=== PATIENT | male | born 1990 | race Caucasian/White ===

== ENCOUNTER 2018-08-13 13:12 | Emergency (ER) | payer MEDICAID, SELFPAY ==
[2018-08-13 13:29] VITALS: BP 126/69; PULSE 91; RESP 12; TEMP 37; O2SAT 98
--- NOTE | 2018-08-13 13:37 | W.ED.GENAD ---
Discharge Plan Disposition Patient Disposition: HOME Condition: Good Discharge Details Chief Complaint: DentalOral Clinical Impression: Dental infection Primary Care Provider: NONE,NONE ED Provider: Zachary Banegas Home Meds and New Rx's Prescriptions: New penicillin V potassium 500 mg tablet 500 mg PO QID 10 Days Qty: 40 RF: 0 Continue fluoxetine [Prozac] 20 MG capsule 20 mg PO DAILY RF: 0 dextroamphetamine-amphetamine [Adderall] 30 MG tablet 30 mg PO DAILY RF: 0 gabapentin 100 mg Capsule 100 mg PO BID RF: 0 ibuprofen 600 MG tablet 600 mg PO Q6H PRN (Reason: Pain) Qty: 20 RF: 0 Discharge Instructions Additional Instructions: you can take 1000mg tylenol and 600mg ibuprofen every 6 hours for pain as needed follow up with your dentist within 2 weeks if you have difficulty breathing, high fevers or inability to swallow liquids return to the emergency department Discharge Data Discharge Physician: Zachary Banegas Medical Decision Making 28 yo male comes in with few days of left upper mid molar pain of a tooth that has chronic severe erosion and numeruos caries elsewhere. no fevers, difficulty breathing or swalliwng and has full rom of the mouth and midline uvula and no pain over hyoid and no restricted neck movements and no drainable abscess on exam. I am going to start abx for dental infection and he is giong to f/u with dentist, return precautions given. N ofindings at this time to suggest rpa, [employer], ludwigs, epiglotitis at this time Differential Diagnosis dental abscess, caries, pulpitis HPI General Mode of arrival: ambulatory. Date/Time Provider Initiated Documentation: 08/13/18 13:34. Limitations to Documentation: no limitations. Information obtained by: patient. History of Present Illness 28 year old M presents to the emergency department with the chief complaint of left upper mid molar tooth pain, described as moderate, with intensity rated at 5. Quality is described as aching, and is localized to the mouth. Patient reports no radiation. Patient started experiencing this day(s) (3) and it has been constant. No relieving factors improve symptom(s), No exacerbating factors reported . Patient notes no other symptoms.. Patient did receive the following treatments prior to arrival, none Related Data Home Medications Medication Instructions Recorded Confirmed fluoxetine [Prozac] 20 mg PO DAILY tab-cap NS 03/06/16 08/13/18 dextroamphetamine-amphetamine 30 mg PO DAILY tab-cap 11/05/16 08/13/18 [Adderall] ibuprofen 600 mg PO Q6H PRN #20 tab 04/01/18 08/13/18 gabapentin 100 mg PO BID 08/13/18 08/13/18 penicillin V potassium 500 mg PO QID 10 Days #40 tab 08/13/18 Previous Rx's Medication Instructions Recorded ibuprofen 600 mg PO Q6H PRN #20 tab 04/01/18 penicillin V potassium 500 mg PO QID 10 Days #40 tab 08/13/18 Allergies Allergy/AdvReac Type Severity Reaction Status Date / Time codeine Allergy Unverified 01/24/18 14:03 General Stated Complaint: DentalOral BIANKA: 4 Review of Systems Review of Systems All systems reviewed & are unremarkable except as noted in HPI and below Constitutional Denies chills, Denies fever(s) and Denies weakness ENT Denies change in voice Cardiovascular Denies chest pain and Denies dyspnea Respiratory Denies dyspnea Gastrointestinal Denies abdominal pain, Denies nausea and Denies vomiting Genitourinary Denies dysuria Musculoskeletal Denies joint swelling Integumentary/Breasts Denies rash Neurologic Denies weakness PFSH Medical History ADHD (attention deficit hyperactivity disorder) Depression bilateral congenital hernias Social History Smoking/Tobacco Use Status: Current every day Surgical History Repair of inguinal hernia Exam Const General: no acute distress Orientation: alert HENNH Head: normal to inspection Ears: external ears normal General nose exam: external nose normal Mouth: moist mucous membranes Eyes General: appearance normal, both eyes and all related structures Neck Neck: normal visual inspection Resp Effort & Inspection: normal respiratory effort and able to speak in complete sentences Cardio Rate: regular rate Skin General skin exam: no rashes or lesions noted Neuro General: alert and oriented x3 Extrem General: normal to inspection Psych Mental Status: mental status grossly normal Course Vital Signs Temperature 37.0 C 08/13/18 13:29 Pulse 91 H 08/13/18 13:29 Respiratory Rate 12 08/13/18 13:29 Blood Pressure 126/69 08/13/18 13:29 Pulse Oximetry 98 08/13/18 13:29 Temperature 37.0 C 08/13/18 13:29 Temperature Source Temporal Artery Scan 08/13/18 13:29 Pulse 91 H 08/13/18 13:29 Respiratory Rate 12 08/13/18 13:29 Respiratory Effort Non-Labored 08/13/18 13:31 Blood Pressure 126/69 08/13/18 13:29 Blood Pressure Position Sitting 08/13/18 13:29 Pulse Oximetry 98 08/13/18 13:29 Oxygen Delivery Method Room Air 08/13/18 13:29 Oxygen Flow Rate 0 08/13/18 13:29 Pain Level 3 08/13/18 13:33
--- NOTE | 2018-08-13 13:41 | ED.GENADUL_ITS ---
Discharge Plan Disposition Patient Disposition: HOME Condition: Good Discharge Details Chief Complaint: DentalOral Clinical Impression: Dental infection Primary Care Provider: NONE,NONE ED Provider: Zachary Banegas Home Meds and New Rx's Prescriptions: New penicillin V potassium 500 mg tablet 500 mg PO QID 10 Days Qty: 40 RF: 0 Continue fluoxetine [Prozac] 20 MG capsule 20 mg PO DAILY RF: 0 dextroamphetamine-amphetamine [Adderall] 30 MG tablet 30 mg PO DAILY RF: 0 gabapentin 100 mg Capsule 100 mg PO BID RF: 0 ibuprofen 600 MG tablet 600 mg PO Q6H PRN (Reason: Pain) Qty: 20 RF: 0 Discharge Instructions Additional Instructions: you can take 1000mg tylenol and 600mg ibuprofen every 6 hours for pain as needed follow up with your dentist within 2 weeks if you have difficulty breathing, high fevers or inability to swallow liquids return to the emergency department Discharge Data Discharge Physician: Zachary Banegas Medical Decision Making 28 yo male comes in with few days of left upper mid molar pain of a tooth that has chronic severe erosion and numeruos caries elsewhere. no fevers, difficulty breathing or swalliwng and has full rom of the mouth and midline uvula and no pain over hyoid and no restricted neck movements and no drainable abscess on exam. I am going to start abx for dental infection and he is giong to f/u with dentist, return precautions given. 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 Date/Time Provider Initiated Documentation: 08/13/18 13:34 . Limitations to Documentation: no limitations . Information obtained by: patient . History of Present Illness 28 year old M presents to the emergency department with the chief complaint of left upper mid molar tooth pain, described as moderate, with intensity rated at 5. Quality is described as aching, and is localized to the mouth. Patient reports no radiation. Patient started experiencing this day(s) (3) and it has been constant. No relieving factors improve symptom(s), No exacerbating factors reported . Patient notes no other symptoms.. Patient did receive the following treatments prior to arrival, none Related Data Home Medications Medication Instructions Recorded Confirmed fluoxetine [Prozac] 20 mg PO DAILY tab-cap NS 03/06/16 08/13/18 dextroamphetamine-amphetamine 30 mg PO DAILY tab-cap 11/05/16 08/13/18 [Adderall] ibuprofen 600 mg PO Q6H PRN #20 tab 04/01/18 08/13/18 gabapentin 100 mg PO BID 08/13/18 08/13/18 penicillin V potassium 500 mg PO QID 10 Days #40 tab 08/13/18 Previous Rx's Medication Instructions Recorded ibuprofen 600 mg PO Q6H PRN #20 tab 04/01/18 penicillin V potassium 500 mg PO QID 10 Days #40 tab 08/13/18 Allergies Allergy/AdvReac Type Severity Reaction Status Date / Time codeine Allergy Unverified 01/24/18 14:03 General Stated Complaint: DentalOral BIANKA: 4 Review of Systems Review of Systems All systems reviewed & are unremarkable except as noted in HPI and below Constitutional Denies chills, Denies fever(s) and Denies weakness ENT Denies change in voice Cardiovascular Denies chest pain and Denies dyspnea Respiratory Denies dyspnea Gastrointestinal Denies abdominal pain, Denies nausea and Denies vomiting Genitourinary Denies dysuria Musculoskeletal Denies joint swelling Integumentary/Breasts Denies rash Neurologic Denies weakness PFSH Medical History ADHD (attention deficit hyperactivity disorder) Depression bilateral congenital hernias Social History Smoking/Tobacco Use Status: Current every day Surgical History Repair of inguinal hernia Exam Const General: no acute distress Orientation: alert HENFL Head: normal to inspection Ears: external ears normal General nose exam: external nose normal Mouth: moist mucous membranes Eyes General: appearance normal, both eyes and all related structures Neck Neck: normal visual inspection Resp Effort & Inspection: normal respiratory effort and able to speak in complete sentences Cardio Rate: regular rate Skin General skin exam: no rashes or lesions noted Neuro General: alert and oriented x3 Extrem General: normal to inspection Psych Mental Status: mental status grossly normal Course Vital Signs Temperature 37.0 C 08/13/18 13:29 Pulse 91 H 08/13/18 13:29 Respiratory Rate 12 08/13/18 13:29 Blood Pressure 126/69 08/13/18 13:29 Pulse Oximetry 98 08/13/18 13:29 Temperature 37.0 C 08/13/18 13:29 Temperature Source Temporal Artery Scan 08/13/18 13:29 Pulse 91 H 08/13/18 13:29 Respiratory Rate 12 08/13/18 13:29 Respiratory Effort Non-Labored 08/13/18 13:31 Blood Pressure 126/69 08/13/18 13:29 Blood Pressure Position Sitting 08/13/18 13:29 Pulse Oximetry 98 08/13/18 13:29 Oxygen Delivery Method Room Air 08/13/18 13:29 Oxygen Flow Rate 0 08/13/18 13:29 Pain Level 3 08/13/18 13:33
== END 2018-08-13 13:45 | disposition home or self-care (01) ==
PROVIDERS: Emergency Provider Emergency Medicine
DX: K04.7 Periapical abscess without sinus (principal)
CPT/HCPCS: 99283

== ENCOUNTER 2020-01-18 19:05 | Emergency (ER) | payer MEDICAID, SELFPAY ==
[2020-01-18 19:09] VITALS: BP 139/98; PULSE 76; RESP 14; TEMP 36.9; O2SAT 98
--- NOTE | 2020-01-18 19:12 | W.ED.GENAD ---
Discharge Plan Disposition Patient Disposition: HOME Condition: Good Discharge Details Chief Complaint: DentalOral Clinical Impression: Dental infection Primary Care Provider: None,None ED Provider: Renan Ch Home Meds and New Rx's Prescriptions: New clindamycin HCl 150 mg capsule 450 mg PO TID 10 Days Qty: 90 RF: 0 No Action ibuprofen 600 MG tablet 600 mg PO Q6H PRN (Reason: Pain) Qty: 20 RF: 0 Discharge Instructions Instructions: Dental Abscess (ED) Additional Instructions: You have a dental infection. Please take the clindamycin as directed. Please take 800 mg of ibuprofen every 6 hours and 1000 mg of Tylenol every 6 hours. Please follow-up closely with your dentist for removal of your teeth. If you notice any worsening of your symptoms, or any new symptoms such as vomiting, diarrhea, fever, chills, shortness of breath, chest pain, numbness, weakness, or fainting , please return immediately to the emergency department for reevaluation. Please follow up with your primary care provider as soon as possible for reassessment and reevaluation. As always, it was a pleasure participating in your medical care today. Medical Decision Making 29-year-old male with a past medical history of dental problems who presents with dental problems. Patient states that over the last few days he has had mild swelling and pain in his upper teeth, he was started on amoxicillin an outpatient facility, is taking this for 24 hours and has had slight swelling and increase in pain. Exam demonstrates mild swelling around tooth 9, small area of fluctuance. Immunizations are up-to-date. With the lack of improvement with the amoxicillin I do feel that further antibiotic treatment is indicated with clindamycin. We will give the first dose here, perform small I&D, reassess. I&D was applied, a small amount of pus and blood was removed. Patient tolerated procedure well. Recommend NSAIDs, and antibiotic. Given dental sheet. I have extensively reviewed the treatment plan and discharge instructions with the patient. I have addressed all patient concerns at this time. The patient was made aware of what symptoms to monitor for that would warrant a return to the emergency department. Discussed the plan with the patient, they demonstrate verbal understanding and agreement with our assessment and plan at this time. HPI General Date/Time Provider Initiated Documentation: 01/18/20 19:05. HPI Narrative: 29-year-old male with a past medical history of multiple previous dental infections. He presents today for swelling in his mouth. He has been on amoxicillin for the last 24 hours that he was prescribed by Dr. Hennessy at an outlying facility. He states that since then the swelling has worsened. He does have a dentist that he sees. He has not yet seen them. He denies any fever, chills, headache, neck pain, chest pain cough or shortness of breath. Pain is slightly improved with Tylenol Motrin. No other complaints at this time. No other modifying factors. Related Data Home Medications Medication Instructions Recorded Confirmed ibuprofen 600 mg PO Q6H PRN #20 tab 04/01/18 01/18/20 clindamycin HCl 450 mg PO TID 10 Days #90 cap 01/18/20 Previous Rx's Medication Instructions Recorded ibuprofen 600 mg PO Q6H PRN #20 tab 04/01/18 clindamycin HCl 450 mg PO TID 10 Days #90 cap 01/18/20 Allergies Allergy/AdvReac Type Severity Reaction Status Date / Time codeine Allergy Unverified 01/24/18 14:03 General Stated Complaint: DentalOral BIANKA: 4 Review of Systems All systems reviewed & are unremarkable except as noted in HPI and below PFSH Surgical History (Updated 08/17/18 @ 14:37 by Patient [employer]) Repair of inguinal hernia Bilateral Social History Smoking/Tobacco Use Status: Current every day Drug use: Daily Substance use type: marijuana Do you feel safe in your relationship?: Yes Exam Narrative Exam Narrative: 1.Const: Well-nourished, Well-developed, appearing stated age 2.Eyes: PERRL, no conjunctival injection, and symmetrical lids. 3.ENT: Atraumatic external nose and ears. Moist MM. Neck: Symmetric, trachea midline, No thyromegaly. Notably poor dentition throughout, particularly in the upper front teeth. There is a small area of swelling over the ninth tooth on the upper left. No evidence of discharge. Patient demonstrates good movement of cervical neck. There is no nuchal rigidity, no nuchal tenderness. Patient is able to flex the neck without any difficulty or significant pain. Negative Kernig's and Brudzinski sign. 4.CVS: +S1/S2, No murmurs or gallops. Peripheral pulses 2+ and equal in all extremities. Brisk capillary refill in all extremities. 5.RESP: Unlabored respiratory effort. Clear to auscultation bilaterally. No wheezes rales or rhonchi 6.GI: Soft, Nontender/Nondistended, No hepatosplenomegaly. No guarding or rebound. 7.MSK: Normocephalic/Atraumatic, Extremities w/o deformity or ttp No cyanosis or clubbing, Normal movement of all extremities 8.Skin: Warm, Dry. No rashes or lesions. 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 Sensation grossly intact, no focal neurologic deficits. 10.Psych: (AAO) x3. Appropriate mood and affect Course Vital Signs Vital signs: Vital Signs Temperature 36.9 C 01/18/20 19:09 Pulse 76 01/18/20 19:09 Respiratory Rate 14 01/18/20 19:09 Blood Pressure 139/98 H 01/18/20 19:09 Pulse Oximetry 98 01/18/20 19:09 Temperature 36.9 C 01/18/20 19:09 Temperature Source Skin 01/18/20 19:09 Pulse 76 01/18/20 19:09 Respiratory Rate 14 01/18/20 19:09 Respiratory Effort 01/18/20 19:09 Blood Pressure 139/98 H 01/18/20 19:09 Pulse Oximetry 98 01/18/20 19:09 Pain Level 6 01/18/20 19:09
[2020-01-18] MEDS: Clindamycin 150 MG CAP 450 MG PO (19:26)
[2020-01-18] MEDS: Ondansetron O.D.T. 4 MG TABEF PO (19:30)
[2020-01-18 19:40] VITALS: BP 139/98; PULSE 76; RESP 14; O2SAT 98
== END 2020-01-18 19:41 | disposition home or self-care (01) ==
LOC: ER 19:17
PROVIDERS: Emergency Provider Student in an Organized Health Care Education/Training Program
DX: K04.7 Periapical abscess without sinus (principal)
CPT/HCPCS: 99283

== ENCOUNTER 2020-01-24 19:00 | Emergency (ER) | payer MEDICAID, SELFPAY ==
[2020-01-24 19:06] VITALS: BP 126/78; PULSE 91; RESP 16; TEMP 37.1; O2SAT 96
--- NOTE | 2020-01-24 19:44 | ED.GENADUL_ITS ---
Discharge Plan Disposition Patient Disposition: HOME Condition: Stable Discharge Details Chief Complaint: DentalOral Clinical Impression: Dental infection, Lymphadenitis, acute Primary Care Provider: None,None ED Provider: Ginette Carter Home Meds and New Rx's Prescriptions: No Action ibuprofen 600 MG tablet 600 mg PO Q6H PRN (Reason: Pain) Qty: 20 RF: 0 clindamycin HCl 150 mg capsule 450 mg PO TID 10 Days Qty: 90 RF: 0 Discharge Instructions Instructions: Dental Abscess (ED) Additional Instructions: Continue antibiotics as discussed. Be sure to sit upright for 10 minutes after taking antibiotics. Use Tylenol for soreness if needed. Rest activities as tolerated. Monitor your temperature twice daily as discussed. For any increase in temperature greater than 100.4, increasing facial swelling, development of ill feeling or persistent vomiting return to the emergency room for further evaluation as discussed. Please avoid irritating the area of the swollen glands, this should resolve on its own in the next few weeks, if not resolving have reevaluation with your PCP or return to the emergency room for redness surrounding the area, pain at the area or worsening as discussed. Please follow-up with a dentist locally for definitive treatment of your dental caries. Return for any worsening or concerns if needed sooner Discharge Data Discharge Date/Time-TO BE ENTERED AT DEPARTURE: 01/24/20 19:49 Medical Decision Making Is a 29-year-old patient presenting to the emergency room for complaints of an episode of vomiting after taking his antibiotic he subsequently checked his temperature with a thermometer and noted 99, also reports an area of lump of concern on his neck which he does report is improved compared to yesterday. Patient was concerned as he is being treated for dental abscess with clindamycin. Antibiotic prescribed 5 days ago. Patient reports his dental abscess is significantly improved compared to 5 days ago. Patient reports pain, swelling and pressure have all significantly improved. Has been eating and drinking without difficulty. Patient indicates an area under the left jawline clinically consistent with a prominent lymph node. Area has no overlying cellulitic findings. Patient reports this area is smaller in size compared to yesterday, I suspect reactive lymph node. Patient indicates tooth 9 as site of dental abscess, no fluctuation or sign of abscess at this time. A small wound at the gumline patient indicates was area of drainage. Patient has no subsequent swelling or facial involvement at this time. Patient has no trismus. Patient does have widespread dental caries. Patient denies any upper res piratory symptoms or any other concern of infection. Patient reports in general he feels continuing improvement. However he was concerned with a single episode of vomiting this morning and then the temperature of 99 which he was concerned seemed elevated. Patient however does attribute his vomiting after immediately taking clindamycin and laying flat, he after reviewed pill bottle which stated to sit upright for 10 minutes after taking his antibiotic. Patient reports he has been able to hold down to subsequent doses without difficulty. Denies any sign of rash or allergic reaction. On exam patient has a clinically improving dental abscess. Patient vital signs reviewed and are normal. Patient appears well in general. Patient reports he googled and was concerned with the possibility of sepsis however has no septic criteria at this time and in general is improving. We discussed blood work however patient is very hesitant to have any labs drawn today. Patient rather would prefer checking temperatures daily and observing closely for any clinical worsening. If he has any worsening will be reevaluated in the emergency room. Patient denies any other sites of infection or concerns. Has no upper respiratory symptoms or cough. Is no abdominal pain or changes in his bowels. Denies any rashes. Patient feels comfortable with observation his plan of care and continuing antibiotics at home. Did encourage patient to follow-up with dentist as an outpatient for his underlying dental caries. Patient agrees with plan of care. Precautions discussed prior to discharge, patient again agrees with plan of care and discharge. The patient was stable and requested discharge. Prior to discharge, my usual and customary return precautions were reviewed with the patient - this included follow-up instructions and reasons to return to the Emergency Department if conditions worsens, does not improve as expected, or other new concerns arise. HPI General Date/Time Provider Initiated Documentation: 01/24/20 19:06 . HPI Narrative: This is a 29-year-old patient presenting to the emergency room for concern of an episode of vomiting immediately after taking his antibiotic and laying flat. Patient reports this occurred approximately 4:00 this morning. Patient reports he subsequently checked his temperature which was noted to be 99. Patient is also concerned as he is an area on his neck which is slightly swollen. Patient does report this area of swelling on his neck is less swollen compared to yesterday. Patient recently evaluated 5 or 6 days ago for dental abscess. Abscess was drained in the emergency room and he began clindamycin at that time. Patient reports his dental swelling, pressure and pain have all significantly improved. Patient denies any malaise at this time. Patient reports he has subsequently taken his antibiotic without difficulty or vomiting. Patient suspects he vomited because he laid flat immediately after taking antibiotics, after reviewing the pill bottle the direction specifically state to sit upright for 10 minutes after taking antibiotic which he was unaware of, and did lay down immediately after taking his dose, then subsequently vomited. Patient reports no cough, difficulty breathing with shortness of breath or wheezing. No persistent malaise at this time. Has been eating and drinking without difficulty. In general feels continued improvement. Related Data Home Medications Medication Instructions Recorded Confirmed ibuprofen 600 mg PO Q6H PRN #20 tab 04/01/18 01/24/20 clindamycin HCl 450 mg PO TID 10 Days #90 cap 01/18/20 01/24/20 Previous Rx's Medication Instructions Recorded ibuprofen 600 mg PO Q6H PRN #20 tab 04/01/18 clindamycin HCl 450 mg PO TID 10 Days #90 cap 01/18/20 Allergies Allergy/AdvReac Type Severity Reaction Status Date / Time codeine Allergy Unverified 01/24/20 19:09 General Stated Complaint: DentalOral BIANKA: 4 Review of Systems All systems reviewed & are unremarkable except as noted in HPI and below Constitutional Constitutional: Denies chills, Denies fatigue, Denies fever(s) (99 measured at home), Denies headache(s) and Denies malaise ENT Ears, Nose, Mouth, and Throat: Denies dental pain, Denies headache(s), Denies nasal congestion, Denies nasal discharge, Reports neck mass, Denies neck pain, Denies sore throat and Denies throat swelling Respiratory Respiratory: Denies cough and Denies wheezing Gastrointestinal Gastrointestinal: Denies abdominal pain, Denies diarrhea, Denies nausea and Reports vomiting (x 1, since resolved) Musculoskeletal Musculoskeletal: Denies neck pain Neurologic Neurologic: Denies headache(s) Endocrine Endocrine: Denies fatigue Allergic/Immunologic Allergic/Immunologic: Denies throat swelling and Denies wheezing [facility] Medical History ADHD (attention deficit hyperactivity disorder) bilateral congenital hernias Depression Surgical History (Updated 08/17/18 @ 14:37 by [facility]) Repair of inguinal hernia Bilateral Social History Smoking/Tobacco Use Status: Current every day Tobacco Type: cigarettes Drug use: Daily Substance use type: marijuana Do you feel safe in your relationship?: Yes Exam Narrative Exam Narrative: CONST: Healthy appearing patient, in no acute distress. Well hydrated. Alert and oriented. HENMT: Head nomocephalic, normal to inspection. Atraumatic. Hearing grossly normal. TMs appear normal bilaterally. Oropharynx appears normal. Patient has a healing wound at the gumline, anterior to tooth #9. Patient has no focal fluctuation at the gumline or facial swelling associated with previously experienced dental abscess. Mild gingival erythema and widespread dental caries. EYES: General normal appearance. Alignment normal. Eyelids normal. Conjunctiva normal. NECK: Normal visual inspection. FROM. Trachea midline. No Midline tenderness. Isolated prominent submandibular lymph node noted on the left, no overlying cellulitis, nontender, no fluctuance. Well-circumscribed. CHEST: Normal insepection of the chest. RESP: Normal respiratory effort. Speaking full sentences. No cough. No audible wheezing. No retractions. CARDIO: No JVD. No murmur. Regular rate and rhythm MUSCULOSKELETAL: Normal Gait. FROM of all extremities. SKIN: Normal. Dry. No rashes. NEURO: Alert and awake. Speech clear. PSYCH: Normal affect. Cooperative. Course Vital Signs Vital signs: Vital Signs Temperature 37.1 C 01/24/20 19:06 Pulse 91 H 01/24/20 19:06 Respiratory Rate 16 01/24/20 19:06 Blood Pressure 126/78 01/24/20 19:06 Pulse Oximetry 96 01/24/20 19:06 Temperature 37.1 C 01/24/20 19:06 Temperature Source Temporal Artery Scan 01/24/20 19:06 Pulse 91 H 01/24/20 19:06 Respiratory Rate 16 01/24/20 19:06 Respiratory Effort 01/24/20 19:09 Blood Pressure 126/78 01/24/20 19:06 Blood Pressure Position Sitting 01/24/20 19:06 Pulse Oximetry 96 01/24/20 19:06 Oxygen Delivery Method Room Air 01/24/20 19:06 Oxygen Flow Rate 0 01/24/20 19:06
== END 2020-01-24 19:49 | disposition home or self-care (01) ==
PROVIDERS: Emergency Provider Physician Assistant
DX: L04.0 Acute lymphadenitis of face, head and neck (principal); K04.7 Periapical abscess without sinus; R11.2 Nausea with vomiting, unspecified; T36.8X5A Adverse effect of other systemic antibiotics, initial encounter; F17.210 Nicotine dependence, cigarettes, uncomplicated
CPT/HCPCS: 99282; 99283

== ENCOUNTER 2020-07-09 15:44 | Outpatient (REF) | payer MEDICAID, SELFPAY ==
[2020-07-09 19:01] LABS: Anion Gap 7.4 mmol/L (3-11); BUN 11 mg/dL (7-18); CO2 28.6 mmol/L (21.0-32.0); CREATININE 1.08 mg/dL (0.70-1.30); Calcium 9.1 mg/dL (8.5-10.1); Calculated LDL 113 mg/dL (<100); Chloride 101 mmol/L (98-107); Cholesterol 170 mg/dL (<200); Glucose 91 mg/dL (74-106); HDL Cholesterol 45 mg/dL (40-60); Potassium 3.4 mmol/L (3.5-5.1); Sodium 137 mmol/L (136-145); Triglyceride 61 mg/dL (<150)
== END 2020-07-09 16:04 ==
LOC: NCHCN 15:44
PROVIDERS: Visit Provider Physician Assistant
DX: Z13.220 Encounter for screening for lipoid disorders (principal); Z13.228 Encounter for screening for other metabolic disorders
CPT/HCPCS: 80048; 80061

== ENCOUNTER 2020-08-06 15:37 | Outpatient (REF) | payer MEDICAID, SELFPAY ==
[2020-08-08 12:34] LABS: Patient Race White; SARS-CoV-2 RNA Undetected (Undetected); SARS-CoV-2 Specimen Source Nasal
== END 2020-08-06 15:57 ==
LOC: NCHCN 15:37
PROVIDERS: PCP Nurse Practitioner Family; Visit Provider Nurse Practitioner Family
DX: R05 Cough (principal)
CPT/HCPCS: U0003

== ENCOUNTER 2020-08-08 20:16 | Emergency (ER) | payer MEDICAID, SELFPAY ==
--- NOTE | 2020-08-08 20:15 | RT.EKG_ITS ---
APPROVED REPORT Exam: Resting ECG Patient Location: E HR:76 bpm ECG Measurements Heart Rate 76 AXIS NV 175 P 77 QRSd 91 QRS 88 QT 387 T 50 QTc 437 Conclusion EKG 20: 42 Rate 76, sinus rhythm, intervals normal, no significant ST elevation or depression, no evidence of ST GERALDO, small minimal Q waves in lead III and aVF. No inverted T waves, no evidence of broad terminal S waves.
[2020-08-08 20:21] VITALS: BP 138/76; PULSE 79; RESP 20; TEMP 36.7; O2SAT 97
--- NOTE | 2020-08-08 20:49 | ED.GENADUL_ITS ---
Discharge Plan Disposition Patient Disposition: HOME Condition: Good Discharge Details Clinical Impression: Bronchitis, Cough with hemoptysis Primary Care Provider: Rudy Laura ED Provider: Renan Ch Home Meds and New Rx's Prescriptions: New budesonide-formoterol [Symbicort] 160-4.5 mcg/actuation HFA aerosol inhaler 2 puff inhalation BID Qty: 10.2 RF: 0 loratadine 10 mg capsule 10 mg PO DAILY Qty: 20 RF: 0 doxycycline hyclate 100 mg tablet 100 mg PO BID Qty: 20 RF: 0 Continued ibuprofen 600 MG tablet 600 mg PO Q6H PRN (Reason: Pain) Qty: 20 RF: 0 Discharge Instructions Instructions: Acute Bronchitis (ED), Hemoptysis (ED) Additional Instructions: At this time the CT scan shows no evidence of cancer, large blood clot or other abnormality. I suspect that you have bronchitis from your cough which is led to eventual mild bleeding. Please stop taking the albuterol inhaler and take this new inhaler that has a steroid in it. Take 2 puffs twice daily using your spacer. Please also take the antibiotic doxycycline, 1 pill twice a day. Make sure to take it with food as it can cause an upset stomach. Additionally do not take with any dairy products as this will decrease its effectiveness. Also please take the loratadine 1 pill daily as directed to help with the congestion in your ears. If you notice any worsening of your symptoms, or any new symptoms such as vomiting, diarrhea, fever, chills, shortness of breath, chest pain, numbness, weakness, or fainting , please return immediately to the emergency department for reevaluation. Additionally if your symptoms do not improve after this treatment you may need further evaluation by a physical medicine specialist. Please follow up with your primary care provider as soon as possible for reassessment and reevaluation. As always, it was a pleasure participating in your medical care today. Referrals: Rudy Laura [Primary Care Provider] - Medical Decision Making 30-year-old male with no significant past medical history except for tobacco abuse presents today for hemoptysis. Patient states that last 12 days he has had a mild cough, he was started on Vicks VapoRub, albuterol inhaler a few days ago and has noticed some mild improvement however today he noticed that he was coughing up a fair amount of blood which is atypical. He describes it as nickel to quarter size. This is the first time this is happened. He still does admit to some mild fullness in his chest, he denies any tearing or ripping sensation. He denies any recent long trips or history of blood clots. He denie s any history of cardiac disease. He states that his symptoms have otherwise been stabilizing, but this was a change. He denies any other complaints at this time. No other modifying factors. Physical exam is relatively unremarkable, vital signs stable. Posterior oropharynx is negative for any evidence of blood. Signs and symptoms certainly are concerning, his COVID test did just come back negative. Differential especially with his tobacco history includes bronchitis with subsequent hemoptysis, but also mass or PE. We will get a CTA, laboratory work-up, gently rehydrate monitor closely and reassess. Screening EKG negative for any evidence of STEMI. Also of note he does demonstrate mild evidence of fluid behind his ears which is clear/serous, no evidence of active infection at this time. 1:34 PM Laboratory work-up is returned notably unremarkable, no white count or left shift, renal function stable, proBNP is negative, no suggestion of right heart strain, troponin normal. CTA is negative for any evidence of pulmonary embolism or large consolidation, or dissection. There is evidence of some mild thickening around the bronchi, which would certainly be suggestive of notable bronchitis which would correlate well with his hemoptysis. We will give Symbicort for home use of the steroid component, does recommend 10 days of doxycycline. Did discuss the importance of taking this with food. Will give loratadine to help with the sinus congestion, and recommend close follow-up with PCP. This time patient remains notably stable, signs and symptoms inconsistent with acute life-threatening etiology. I have extensively reviewed the treatment plan and discharge instructions with the patient. I have addressed all patient concerns at this time. The patient was made aware of what symptoms to monitor for that would warrant a return to the emergency department. Discussed the plan with the patient, they demonstrate verbal understanding and agreement with our assessment and plan at this time. EKG 20: 42 Rate 76, sinus rhythm, intervals normal, no significant ST elevation or depression, no evidence of STEMI, small minimal Q waves in lead III and aVF. No inverted T waves, no evidence of broad terminal S waves. Candidate vein examined with linear array probe - confirmed collapsibility, lack of pulsatility, and proper anatomic location. Using aseptic technique, IV catheter inserted with flash of blood noted, flow of venous blood confirmed. Flushes easily and without pain. No hematoma or complications noted. IV secured. Patient tolerated well. 18-gauge is in place in the left AC. FINDINGS: Pulmonary arteries: No filling defects within the central pulmonary arteries are identified to suggest pulmonary embolism. There is no bowing of the interventricular septum or disproportion enlargement of the right heart. There is no reflux of contrast into the IVC. Aorta: Unremarkable. No aortic aneurysm. No aortic dissection. Lungs: There is mild central peribronchial thickening. There are regions of mild mucous plugging within the posteromedial basilar right lower lobe segmental bronchus. The central airways are otherwise patent. No focal airspace opacities are identified. There are no masses. Pleural space: Unremarkable. No pneumothorax. No pleural effusion. Heart: Heart size is normal. Lymph nodes: Unremarkable. No enlarged lymph nodes. Bones/joints: Unremarkable. No acute fracture. Soft tissues: Unremarkable. IMPRESSION: 1. No pulmonary embolism identified. 2. Central peribronchial thickening with mild mucus within the right lower lobe suggesting bronchitis. Recommend clinical correlation. Thank you for allowing us to participate in the care of your patient. Dictated and Authenticated by: Raymond Rodriguez MD 08/08/2020 10:26 PM Eastern Time ([place] & Ana Laura) HPI General Date/Time Provider Initiated Documentation: 08/08/20 20:17 . HPI Narrative: 30-year-old male with no significant past medical history except for tobacco abuse presents today for hemoptysis. Patient states that last 12 days he has had a mild cough, he was started on Vicks VapoRub, albuterol inhaler a few days ago and has noticed some mild improvement however today he noticed that he was coughing up a fair amount of blood which is atypical. He describes it as nickel to quarter size. This is the first time this is happened. He still does admit to some mild fullness in his chest, he denies any tearing or ripping sensation. He denies any recent long trips or history of blood clots. He denies any history of cardiac disease. He states that his symptoms have otherwise been stabilizing, but this was a change. He denies any other complaints at this time. No other modifying factors. Related Data Home Medications Medication Instructions Recorded Confirmed ibuprofen 600 mg PO Q6H PRN #20 tab 04/01/18 01/24/20 budesonide-formoterol [Symbicort] 2 puff INHALATION BID #10.2 g 08/08/20 doxycycline hyclate 100 mg PO BID #20 tab 08/08/20 loratadine 10 mg PO DAILY #20 cap 08/08/20 Previous Rx's Medication Instructions Recorded ibuprofen 600 mg PO Q6H PRN #20 tab 04/01/18 budesonide-formoterol [Symbicort] 2 puff INHALATION BID #10.2 g 08/08/20 doxycycline hyclate 100 mg PO BID #20 tab 08/08/20 loratadine 10 mg PO DAILY #20 cap 08/08/20 Allergies Allergy/AdvReac Type Severity Reaction Status Date / Time codeine Allergy Unverified 08/08/20 20:50 General Stated Complaint: RespSymp BIANKA: 3 Review of Systems All systems reviewed & are unremarkable except as noted in HPI and below PFSH Medical History ADHD (attention deficit hyperactivity disorder) bilateral congenital hernias Depression Surgical History Repair of inguinal hernia Bilateral Social History Smoking/Tobacco Use Status: Current every day Tobacco Type: cigarettes Drug use: Daily Substance use type: marijuana Do you feel safe at home: Yes Do you feel safe in your relationship?: Yes Exam Narrative Exam Narrative: 1.Const: Well-nourished, Well-developed, appearing stated age 2.Eyes: PERRL, no conjunctival injection, and symmetrical lids. 3.ENT: Atraumatic external nose and ears. Moist MM. Neck: Symmetric, trachea midline, No thyromegaly. Tympanic membranes demonstrate small amounts of clear fluid behind both ears, no evidence of purulent effusion. 4.CVS: +S1/S2, No murmurs or gallops. Peripheral pulses 2+ and equal in all extremities. Brisk capillary refill in all extremities. 5.RESP: Unlabored respiratory effort. Clear to auscultation bilaterally. No wheezes rales or rhonchi 6.GI: Soft, Nontender/Nondistended, No hepatosplenomegaly. No guarding or rebound. 7.MSK: Normocephalic/Atraumatic, Extremities w/o deformity or ttp No cyanosis or clubbing, Normal movement of all extremities, no calf tenderness 8.Skin: Warm, Dry. No rashes or lesions. 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 Sensation grossly intact, no focal neurologic deficits. 10.Psych: (AAO) x3. Appropriate mood and affect Course Vital Signs Vital signs: Vital Signs Temperature 36.7 C 08/08/20 20: Pulse 79 08/08/20 20:21 Respiratory Rate 20 08/08/20 20:21 Blood Pressure 138/76 08/08/20 20:21 Pulse Oximetry 97 08/08/20 20:21 Temperature 36.7 C 08/08/20 20:21 Temperature Source Tympanic 08/08/20 20:21 Pulse 79 08/08/20 20:21 Respiratory Rate 20 08/08/20 20:21 Respiratory Effort 08/08/20 20:27 Respiratory Depth Normal 08/08/20 20:27 Blood Pressure 138/76 08/08/20 20:21 Pulse Oximetry 97 08/08/20 20:21 Oxygen Delivery Method Room Air 08/08/20 20:21 Oxygen Flow Rate 0 08/08/20 20:21 Pain Level 0 08/08/20 20:21
[2020-08-08] MEDS: Normal Saline 1,000 ML 1000 ML IV (21:13)
[2020-08-08 21:14] LABS: Abs Immature Grans 0.03 10^3/uL (0.0-0.06); Absolute Basophil Count 0.05 10^3/uL (0.0-0.2); Absolute Lymphocyte Count 3.97 10^3/uL (1.2-3.4); Absolute Monocyte Count 1.14 10^3/uL (0.1-0.8); Absolute Neutrophil Count 5.07 10^3/uL (1.2-6.7); Basophils % 0.5; HGB 15.2 g/dL (13.5-17.5); Immature Grans % 0.3; Lymphocytes % 38.3; MCH 29.3 pg (27.0-33.0); MCV 88.8 fL (80-95); MPV 10.4 fL (8.0-11.0); Neutrophils % 48.9; Nucleated RBC 0 %; Platelet Count 289 10^3/uL (130-400); RBC 5.18 10^6/uL (4.36-5.78); RDW 13.3 % (11.8-14.1); RDW-SD 43.9 fL; WBC 10.36 10^3/uL (4.4-10.8)
[2020-08-08 21:26] LABS: PTT Activated 29.9 sec (21.0-31.4); Prothrombin Time 10.4 sec (9.3-11.0)
[2020-08-08] MEDS: Normal Saline Flush 10 ML SYR IVP (21:29)
[2020-08-08] MEDS: Omnipaque 350 MG/ML 100 ML BTL IJ (21:29)
[2020-08-08 21:36] LABS: ALT 19 U/L (16-63); AST 14 U/L (15-37); Albumin 4.2 g/dL (3.4-5.0); Alkaline Phosphatase 59 U/L (46-116); Anion Gap 9.4 mmol/L (3-11); BUN 15 mg/dL (7-18); Bilirubin, Total 0.4 mg/dL (0.2-1.0); CO2 28.6 mmol/L (21.0-32.0); CREATININE 1.08 mg/dL (0.70-1.30); Calcium 9.1 mg/dL (8.5-10.1); Chloride 101 mmol/L (98-107); Glucose 100 mg/dL (74-106); NT-proBNP 22 pg/mL (<300); Potassium 3.7 mmol/L (3.5-5.1); Sodium 139 mmol/L (136-145); Total Protein 7.8 g/dL (6.4-8.2)
--- NOTE | 2020-08-08 21:45 | DI.CT_ITS ---
EXAM: CT CHEST PE CTA CLINICAL HISTORY: Cough, hemoptysis, rule out PE/mass. TECHNIQUE: Imaging Protocol: Axial CT angiography was performed with multi-slice acquisition and mu lti-planar and/or 3D reconstructions. CONTRAST MATERIAL: Intravenous: Omnipaque 350 Contrast volume:structured data in ml COMPARISON: CT ABD PELVIS WITH CONTRAST from 03/24/2016 FINDINGS: CT angiography of the chest was performed with intravenous infusion of 100 cc of Omnipaque 350. The lungs are clear. No pleural effusion. Tracheobronchial tree appears intact. No evidence of pulmonary embolic disease. Thoracic aorta is of normal diameter, no thoracic aortic an eurysm or dissection, major branch vessels appear intact. No mediastinal or hilar adenopathy. Images obtained through the upper abdomen show unremarkable appearance of the visualized portions of the liver, spleen, pancreas, adrenals, and kidneys. IMPRESSION: Negative CT angiogram of the chest. No evidence of pulmonary embolic disease. RADIATION DOSE DELIVERED: 427.17mGy.cm Total DLP 427.17mGy.cm Total DLP DATA REPOSITORY: All CT scans at this facility are submitted to the National Radiology Data Registry (NRDR) Dose Index Registry (DIR) with the [employer] ([employer]). RADIATION OPTIMIZATION: All CT scans at this facility use at least one of these dose optimization te chniques: automated exposure control; mA and/or kV adjustment per patient size (includes targeted exa ms where dose is matched to clinical indication); or iterative reconstruction.
[2020-08-08 21:49] LABS: Troponin I < 0.05 ng/mL (<0.06)
[2020-08-08 22:39] VITALS: BP 117/69; PULSE 71; RESP 20; O2SAT 98
[2020-08-08 22:40] VITALS: BP 117/69; PULSE 71; RESP 20; O2SAT 98
--- NOTE | 2020-08-15 16:03 | DI.VRAD_ITS ---
PROCEDURE INFORMATION: Exam: CT Angiography Chest With Contrast Exam date and time: 08/08/2020 9:30 PM Age: 30 years old Clinical indication: Cough with hemorrhage; Patient HX: Cough and hemoptysis for 7 days, no surgeries or trauma. No HX of dvt or pe. R/O pe/ mass TECHNIQUE: Imaging protocol: Computed tomographic angiography of the chest with intravenous contrast. 3D rendering (Not supervised by radiologist): MIP and/or 3D reconstructed images were created by the technologist. Radiation optimization: All CT scans at this facility use at least one of these dose optimization techniques: automated exposure control; mA and/or kV adjustment per patient size (includes targeted exams where dose is matched to clinical indication); or iterative reconstruction. Contrast material: OMNIPAQUE 350; Contrast volume: 100 ml; Contrast route: INTRAVENOUS (IV); COMPARISON: No relevant prior studies available. FINDINGS: Pulmonary arteries: No filling defects within the central pulmonary arteries are identified to suggest pulmonary embolism. There is no bowing of the interventricular septum or disproportion enlargement of the right heart. There is no reflux of contrast into the IVC. Aorta: Unremarkable. No aortic aneurysm. No aortic dissection. Lungs: There is mild central peribronchial thickening. There are regions of mild mucous plugging within the posteromedial basilar right lower lobe segmental bronchus. The central airways are otherwise patent. No focal airspace opacities are identified. There are no masses. Pleural space: Unremarkable. No pneumothorax. No pleural effusion. Heart: Heart size is normal. Lymph nodes: Unremarkable. No enlarged lymph nodes. Bones/joints: Unremarkable. No acute fracture. Soft tissues: Unremarkable. IMPRESSION: 1. No pulmonary embolism identified. 2. Central peribronchial thickening with mild mucus within the right lower lobe suggesting bronchitis. Recommend clinical correlation. Dictated and Authenticated by: Raymond Rodriguez MD. Ordering:FREDRICK Urrutia MD
== END 2020-08-08 22:38 | disposition home or self-care (01) ==
PROVIDERS: Emergency Provider Student in an Organized Health Care Education/Training Program; PCP Physician Assistant
DX: J20.8 Acute bronchitis due to other specified organisms (principal); R04.2 Hemoptysis; H74.8X3 Other specified disorders of middle ear and mastoid, bilateral; F17.210 Nicotine dependence, cigarettes, uncomplicated; Z03.818 Encounter for observation for suspected exposure to other biological agents ruled out
CPT/HCPCS: 36415; 71275; 80053; 93005; 96360; 99285; 83880; 84484; 85025; 85610; 85730; 93010; 99284; J3490

== ENCOUNTER 2020-11-05 10:58 | Outpatient (REF) | payer MEDICAID, SELFPAY ==
[2020-11-07 02:07] LABS: COVID-19 RT-PCR UVMMC Result Negative (Negative)
== END 2020-11-05 11:18 ==
LOC: NCHCN 10:58
PROVIDERS: PCP Physician Assistant; Visit Provider Nurse Practitioner Family
DX: J06.9 Acute upper respiratory infection, unspecified (principal)
CPT/HCPCS: U0003

== ENCOUNTER 2021-02-14 22:02 | Emergency (ER) | payer MEDICAID, SELFPAY ==
[2021-02-14 22:07] VITALS: BP 121/64; PULSE 78; RESP 16; TEMP 36.5; O2SAT 96
--- NOTE | 2021-02-14 22:08 | ED.GENADUL_ITS ---
Discharge Plan Disposition Patient Disposition: HOME Condition: Stable Discharge Details Clinical Impression: Pain, dental Primary Care Provider: Rudy Laura ED Provider: Zachary Banegas Home Meds and New Rx's Prescriptions: New amoxicillin-pot clavulanate [Augmentin] 875-125 mg tablet 1 tab PO BID Qty: 14 RF: 0 Continued ibuprofen 600 MG tablet 600 mg PO Q6H PRN (Reason: Pain) Qty: 20 RF: 0 budesonide-formoterol [Symbicort] 160-4.5 mcg/actuation HFA aerosol inhaler 2 puff inhalation BID Qty: 10.2 RF: 0 Discontinued doxycycline hyclate 100 mg tablet 100 mg PO BID Qty: 20 RF: 0 No Action acetaminophen 650 mg Tablet PO RF: 0 Discharge Instructions Instructions: Toothache (ED) Additional Instructions: you can take 1000mg tylenol and 600mg ibuprofen every 6 hours for pain as needed follow up with your dentist as soon as possible if you feel more ill, have difficulty breathing or swallowing liquids return to the emergency department Medical Decision Making 30 yo male with prior history of prior dental caries and last dental infection being over 6 months ago per patient comes in with pain in the left lower posterior molar. Denies fevers, chills, dyspnea or difficulty swallowing. On exam is speaking in full sentences and swallowing normally. HAs eroded posterior left molar that is tender to percussion, no visible abscess. Midline uvula, no submandibular swelling and no pain over the hyoid and no restricted neck movements. Exam and history consistent with pulpitis no findings to suggest ret ropharyngeal abscess, epiglotitis or ludwigs or peritonsillar abscess. Will start on augmentin, advised to follow up with dentist as soon as possible and return precautions given Differential Diagnosis Differential Diagnosis: dental infection, pulpitis HPI General Mode of arrival: ambulatory . Date/Time Provider Initiated Documentation: 02/14/21 22:04 . Limitations to Documentation: no limitations . Information obtained by: patient . History of Present Illness 30 year old M presents to the emergency department with the chief complaint of left lower posterior molar pain, described as moderate, Patient started experiencing this day(s) (3) and it has been constant. No relieving factors improve symptom(s), No exacerbating factors reported . Patient notes no other symptoms.. Patient did receive the following treatments prior to arrival, none Related Data Home Medications Medication Instructions Recorded Confirmed ibuprofen 600 mg PO Q6H PRN #20 tab 04/01/18 01/24/20 budesonide-formoterol [Symbicort] 2 puff INHALATION BID #10.2 g 08/08/20 acetaminophen PO 02/14/21 amoxicillin-pot clavulanate 1 tab PO BID #14 tab 02/14/21 [Augmentin] Previous Rx's Medication Instructions Recorded ibuprofen 600 mg PO Q6H PRN #20 tab 04/01/18 budesonide-formoterol [Symbicort] 2 puff INHALATION BID #10.2 g 08/08/20 amoxicillin-pot clavulanate 1 tab PO BID #14 tab 02/14/21 [Augmentin] Allergies Allergy/AdvReac Type Severity Reaction Status Date / Time codeine Allergy Unverified 02/14/21 22:11 General BIANKA: 3 Review of Systems All systems reviewed & are unremarkable except as noted in HPI and below Constitutional Constitutional: Denies chills, Denies fever(s) and Denies weakness ENT Ears, Nose, Mouth, and Throat: Denies change in voice Cardiovascular Cardiovascular: Denies chest pain and Denies dyspnea Respiratory Respiratory: Denies cough and Denies dyspnea Gastrointestinal Gastrointestinal: Denies abdominal pain, Denies nausea and Denies vomiting Musculoskeletal Musculoskeletal: Denies joint swelling Neurologic Neurologic: Denies weakness Psychiatric Psychiatric: Denies depression [facility] Medical History ADHD (attention deficit hyperactivity disorder) bilateral congenital hernias Depression Surgical History Repair of inguinal hernia Bilateral Social History Smoking/Tobacco Use Status: Current every day Tobacco Type: cigarettes Smoking risk assessment performed?: Yes Drug use: Daily Substance use type: marijuana Do you feel safe at home: Yes Do you feel safe in your relationship?: Yes Exam Const General: no acute distress Orientation: alert HENMT Head: normal to inspection Ears: external ears normal General nose exam: external nose normal Mouth: moist mucous membranes Eyes General: appearance normal, both eyes and all related structures Neck Neck: normal visual inspection Resp Effort & Inspection: normal respiratory effort and able to speak in complete sentences Cardio Rate: regular rate Skin General skin exam: no rashes or lesions noted Neuro General: patient alert and patient oriented x3 Extrem General: normal to inspection Psych Mental Status: mental status grossly normal
[2021-02-14] MEDS: Amoxicillin 875/Clav. 125 TAB PO (22:16)
== END 2021-02-14 22:20 | disposition home or self-care (01) ==
PROVIDERS: Emergency Provider Emergency Medicine; PCP Physician Assistant
DX: K08.89 Other specified disorders of teeth and supporting structures (principal)
CPT/HCPCS: 99283

== ENCOUNTER 2021-04-22 00:39 | Emergency (ER) | payer MEDICAID, SELFPAY ==
[2021-04-22 00:43] VITALS: BP 132/78; PULSE 88; RESP 16; TEMP 36.9; O2SAT 98
--- NOTE | 2021-04-22 00:46 | W.ED.GENAD ---
Discharge Plan Disposition Patient Disposition: HOME Condition: Stable Discharge Details Clinical Impression: Pain, dental Primary Care Provider: Rudy Laura ED Provider: Zachary Banegas Home Meds and New Rx's Prescriptions: New amoxicillin-pot clavulanate [Augmentin] 875-125 mg tablet 1 tab PO BID Qty: 14 RF: 0 Continued budesonide-formoterol [Symbicort] 160-4.5 mcg/actuation HFA aerosol inhaler 2 puff inhalation BID Qty: 10.2 RF: 0 acetaminophen 650 mg Tablet 650 mg PO PRN PRNRF: 0 Discharge Instructions Instructions: Toothache (ED) Additional Instructions: follow up with a dentist as soon as possible if you feel you are more ill, have fevers or inability to swallow liquids return to the emergency department Medical Decision Making 30 yo male with prior history of dental infections comes in with recurrent left lower molar pain similar to prior dental infections. Was treated with antibiotics in January and did not follow up with dentist after that, felt better with antibiotics. Yesterday started to have left posterior molar pain, no fevers, dyspnea or difficulty swallowing. He has numerous eroded teeth and has pain with percussion to eroded left psoterior molar. Has no submandibular swelling, normal oropharynx, no pain over the hyoid or restricted neck movements. Exam consistent with dental infection vs pain from eroded tooth. No drainable abscess. No findings to indicate ludwigs, retropharyngeal abscess, or peritonsilar abscess. Will start on augmentin and have him f/u with a dentist, return precautions given Differential Diagnosis Differential Diagnosis: pulpitis, periapical abscess, caries Medical Records Medical records reviewed: Yes I reviewed the patient's medical records. HPI General Mode of arrival: ambulatory. Date/Time Provider Initiated Documentation: 04/22/21 00:40. Limitations to Documentation: no limitations. Information obtained by: patient. History of Present Illness 30 year old M presents to the emergency department with the chief complaint of left lower tooth pain, described as moderate, Quality is described as aching, and is localized to the mouth. Patient started experiencing this day(s) (1) and it has been constant. No relieving factors improve symptom(s), Eating worsens symptoms . Patient notes no other symptoms.. Related Data Home Medications Medication Instructions Recorded Confirmed budesonide-formoterol [Symbicort] 2 puff INHALATION BID #10.2 g 08/08/20 04/22/21 acetaminophen 650 mg PO PRN PRN 02/14/21 04/22/21 amoxicillin-pot clavulanate 1 tab PO BID #14 tab 04/22/21 [Augmentin] Previous Rx's Medication Instructions Recorded budesonide-formoterol [Symbicort] 2 puff INHALATION BID #10.2 g 08/08/20 amoxicillin-pot clavulanate 1 tab PO BID #14 tab 04/22/21 [Augmentin] Allergies Allergy/AdvReac Type Severity Reaction Status Date / Time codeine Allergy Unverified 02/14/21 22:11 General Stated Complaint: DentalOral BIANKA: 5 Review of Systems All systems reviewed & are unremarkable except as noted in HPI and below Constitutional Constitutional: Denies chills, Denies fever(s) and Denies weakness ENT Ears, Nose, Mouth, and Throat: Denies change in voice Cardiovascular Cardiovascular: Denies chest pain and Denies dyspnea Respiratory Respiratory: Denies cough and Denies dyspnea Gastrointestinal Gastrointestinal: Denies abdominal pain, Denies nausea and Denies vomiting Neurologic Neurologic: Denies weakness [facility] Medical History ADHD (attention deficit hyperactivity disorder) bilateral congenital hernias Depression Surgical History Repair of inguinal hernia Bilateral Social History Smoking/Tobacco Use Status: Current every day Tobacco Type: cigarettes Smoking risk assessment performed?: Yes Drug use: Daily Substance use type: marijuana Do you feel safe at home: Yes Do you feel safe in your relationship?: Yes Exam Const General: no acute distress Orientation: alert HENMT Head: normal to inspection Ears: external ears normal General nose exam: external nose normal Mouth: moist mucous membranes Eyes General: appearance normal, both eyes and all related structures Neck Neck: normal visual inspection Resp Effort & Inspection: normal respiratory effort and able to speak in complete sentences Cardio Rate: regular rate Skin General skin exam: no rashes or lesions noted Neuro General: patient alert and patient oriented x3 Extrem General: normal to inspection Psych Mental Status: mental status grossly normal Course Vital Signs Vital signs: Vital Signs Temperature 36.9 C 04/22/21 00:43 Pulse 88 04/22/21 00:43 Respiratory Rate 16 04/22/21 00:43 Blood Pressure 132/78 04/22/21 00:43 Pulse Oximetry 98 04/22/21 00:43 Temperature 36.9 C 04/22/21 00:43 Temperature Source Temporal Artery Scan 04/22/21 00:43 Pulse 88 04/22/21 00:43 Respiratory Rate 16 04/22/21 00:43 Blood Pressure 132/78 04/22/21 00:43 Blood Pressure Position Sitting 04/22/21 00:43 Pulse Oximetry 98 04/22/21 00:43 Oxygen Delivery Method Room Air 04/22/21 00:43 Oxygen Flow Rate 0 04/22/21 00:43 Pain Level 9 04/22/21 00:43
[2021-04-22] MEDS: Amoxicillin 875/Clav. 125 TAB PO (00:54)
[2021-04-22] MEDS: Benzocaine 20% Gel 30 GM JAR MM (00:54)
== END 2021-04-22 00:55 | disposition home or self-care (01) ==
PROVIDERS: Emergency Provider Emergency Medicine; PCP Physician Assistant
DX: K08.89 Other specified disorders of teeth and supporting structures (principal)
CPT/HCPCS: 99283

== ENCOUNTER 2021-05-26 02:01 | Outpatient (CLI) | payer MEDICAID, SELFPAY ==
[2021-05-26 13:08] LABS: ALT 23 U/L (16-63); AST 15 U/L (15-37); Albumin 4.7 g/dL (3.4-5.0); Alkaline Phosphatase 67 U/L (46-116); BUN 12 mg/dL (7-18); Bilirubin, Total 0.7 mg/dL (0.2-1.0); Calcium 9.7 mg/dL (8.5-10.1); Chloride 103 mmol/L (98-107); GGT 23 U/L (15-85); Glucose 120 mg/dL (74-106); Potassium 4.5 mmol/L (3.5-5.1); Sodium 141 mmol/L (136-145); Total Protein 8.2 g/dL (6.4-8.2)
[2021-05-27 11:13] LABS: HBs Antibody, Quant >1000.0 mIU/mL (See Note); Hepatitis B Surface Ab Positive (See Note)
[2021-05-27 11:19] LABS: Hepatitis B Surface Ag Negative (Negative)
[2021-05-27 12:00] LABS: HIV-1/2 Ag & Ab Screen Negative (Negative)
[2021-05-27 12:16] LABS: Hepatitis C Ab w Rflx HCV PCR Negative (Negative)
[2021-05-27 12:22] LABS: Hep B Core Antibody Negative (Negative)
[2021-05-27 12:33] LABS: Hep A Total Ab w Rflx IgM Negative (Negative)
== END 2021-05-26 02:02 | disposition home or self-care (01) ==
LOC: LOS 02:01
PROVIDERS: PCP Physician Assistant; Visit Provider Physician Assistant
DX: F11.20 Opioid dependence, uncomplicated (principal); Z11.4 Encounter for screening for human immunodeficiency virus [HIV]; Z11.59 Encounter for screening for other viral diseases
CPT/HCPCS: 36415; 80053; 86704; 86706; 86709; 86803; 87340; 87389; 82977; 85025

== ENCOUNTER 2021-10-19 17:08 | Emergency (ER) | payer MEDICAID, SELFPAY ==
[2021-10-19 17:18] VITALS: BP 134/75; PULSE 84; TEMP 37.2; O2SAT 98
--- NOTE | 2021-10-19 17:33 | ED.GENADUL_ITS ---
Discharge Plan Disposition Patient Disposition: HOME Condition: Improving Discharge Details Clinical Impression: Dental infection Primary Care Provider: Rudy Laura ED Provider: Jairo Zurita Home Meds and New Rx's Prescriptions: New penicillin V potassium 500 mg tablet 500 mg PO TID 10 Days Qty: 30 RF: 0 Continued budesonide-formoterol [Symbicort] 160-4.5 mcg/actuation HFA aerosol inhaler 2 puff inhalation BID Qty: 10.2 RF: 0 acetaminophen 650 mg Tablet 650 mg PO PRN PRNRF: 0 dextroamphetamine-amphetamine 30 mg tablet 30 mg PO DAILY RF: 0 fluoxetine 20 mg capsule 20 mg PO DAILY RF: 0 Discharge Instructions Instructions: Dental Abscess (ED) Additional Instructions: Continue Tylenol and/or ibuprofen as needed for pain. Salt water gargles to speed healing. Take penicillin as prescribed. Follow-up with your dentist for recheck. Return to the ER for any concerns. Medical Decision Making 31-year-old male with developing odontogenic infection left mandibular region. No evidence of pointing/fluctuant abscess. Discussed with him that he home use of 500 mg daily amoxicillin has not provided adequate antibiotic coverage. He will take penicillin as prescribed. He will follow-up with dentistry. He is stable and appropriate for discharge at this time. HPI General Mode of arrival: ambulatory . Date/Time Provider Initiated Documentation: 10/19/21 17:10 . Limitations to Documentation: no limitations . Information obtained by: patient . History of Present Illness 31 year old M presents to the emergency department with the chief complaint of L jaw dental pain, Quality is described as dull and constant, and is localized to the face, mouth and left. Patient reports no radiation. Patient started experiencing this day(s) and it has been constant. No relieving factors improve symptom(s), No exacerbating factors reported . Patient notes denies fever/chills, headaches, loss of appetite and shortness of breath. Patient did receive the following treatments prior to arrival, other (Amoxicillin 500mg QD x3) Related Data Home Medications Medication Instructions Recorded Confirmed budesonide-formoterol [Symbicort] 2 puff INHALATION BID #10.2 g 08/08/20 10/19/21 acetaminophen 650 mg PO PRN PRN 02/14/21 10/19/21 dextroamphetamine-amphetamine 30 mg PO DAILY 10/19/21 10/19/21 fluoxetine 20 mg PO DAILY 10/19/21 10/19/21 penicillin V potassium 500 mg PO TID 10 Days #30 tab 10/19/21 Previous Rx's Medication Instructions Recorded budesonide-formoterol [Symbicort] 2 puff INHALATION BID #10.2 g 08/08/20 penicillin V potassium 500 mg PO TID 10 Days #30 tab 10/19/21 Allergies Allergy/AdvReac Type Severity Reaction Status Date / Time codeine Allergy Unverified 10/19/21 17:23 General Stated Complaint: DentalOral BIANKA: 4 Review of Systems Narrative: No change to voice or swallowing, no difficulty breathing. 6 systems reviewed and otherwise negative. PFSH All Active Problems (Updated 10/19/21 @ 17:36 by Jairo Zurita MD) Pain, dental (Acute) Dental infection (Acute) Medical History ADHD (attention deficit hyperactivity disorder) bilateral congenital hernias Depression Surgical History Repair of inguinal hernia Bilateral Social History Smoking/Tobacco Use Status: Current every day Tobacco Type: cigarettes Smoking risk assessment performed?: Yes Alcohol Intake: current Alcohol Intake frequency: 0-2 drinks per day Alcohol type: hard liquor Drug use: Daily Substance use type: marijuana Do you feel safe at home: Yes Do you feel safe in your relationship?: Yes Exam Narrative Exam Narrative: GEN: awake, alert, oriented 3. Pleasant, well groomed, interactive. HEAD: Normocephalic, atraumatic ENT: Mucous membranes moist, oropharynx with numerous dental caries and partially broken because of teeth. The left mandible, buccal aspect approximately tooth #19 is tender and with swelling. No fluctuance. No pointing mass. EYES: PERRL, EOMI NECK: Full ROM, no LUANN, no menigismus CHEST/RESP: Nontender, clear to auscultation bilateral, no wheeze/rhonchi/rales CARDIOVASCULAR: RRR, no murmur, rub larry. 2+ Rad pulse bilatera Neuro: Grossly normal neurologic exam, conversant, interactive. Psych: Speech fluent, thoughts congruent, affect normal Course Vital Signs Vital signs: Vital Signs Temperature 37.2 C 12/19/21 17:18 Pulse 84 10/19/21 17:18 Blood Pressure 134/75 10/19/21 17:18 Pulse Oximetry 98 10/19/21 17:18 Temperature 37.2 C 10/19/21 17:18 Temperature Source Temporal Artery Scan 10/19/21 17:18 Pulse 84 10/19/21 17:18 Respiratory Effort Non-Labored 10/19/21 17:21 Blood Pressure 134/75 10/19/21 17:18 Blood Pressure Position Sitting 10/19/21 17:18 Pulse Oximetry 98 10/19/21 17:18 Oxygen Delivery Method Room Air 10/19/21 17:18 Oxygen Flow Rate 0 10/19/21 17:18 Pain Level 3 10/19/21 17:18 PAWSS Have you Been Recently Intoxicated or Drunk Within the Last 30 days?: Yes Have you Ever Experienced Previous Episodes of Alcohol Withdrawal?: Yes Have you ever Experienced Withdrawal Seizures?: No Have you ever Experienced Delirium Tremens(DT)s?: Yes Have you ever undergone Alcohol Rehabilitation Treatment (i.e, inpt ot outpatient treatment programs)?: Yes Have you ever Experienced Blackouts?: Yes Have you ever Combined Alcohol with other Downers within the last 90 days?: No Have you ever Combined Alcohol with any other Substance of Abuse during the last 90 days?: No Positive Blood Alcohol level on Presentation? [PCS.BAL]: No Evidence of Increased Autonomic Activity (i.e. HR>120, tremor, sweating, agitation, nausea)?: No Result: 5
[2021-10-19] MEDS: Penicillin V POTASSIUM 500 MG TAB, 4 TABS/BTL PO (17:43)
== END 2021-10-19 17:46 | disposition home or self-care (01) ==
PROVIDERS: Emergency Provider Emergency Medicine; PCP Physician Assistant
DX: K04.7 Periapical abscess without sinus (principal)
CPT/HCPCS: 99283

== ENCOUNTER 2021-10-24 10:54 | Emergency (ER) | payer MEDICAID, SELFPAY ==
[2021-10-24 10:57] VITALS: BP 124/71; PULSE 83; RESP 16; TEMP 36.3; O2SAT 96
--- NOTE | 2021-10-24 11:19 | ED.GENADUL_ITS ---
Discharge Plan Disposition Patient Disposition: HOME Condition: Stable Discharge Details Clinical Impression: Pain, dental, Dental infection Primary Care Provider: Rudy Laura ED Provider: Val Hollins Home Meds and New Rx's Prescriptions: New amoxicillin-pot clavulanate [Augmentin] 875-125 mg tablet 1 tab PO BID Qty: 14 RF: 0 Continued budesonide-formoterol [Symbicort] 160-4.5 mcg/actuation HFA aerosol inhaler 2 puff inhalation BID Qty: 10.2 RF: 0 acetaminophen 650 mg Tablet 650 mg PO PRN PRNRF: 0 dextroamphetamine-amphetamine 30 mg tablet 30 mg PO DAILY RF: 0 fluoxetine 20 mg capsule 20 mg PO DAILY RF: 0 Discontinued penicillin V potassium 500 mg tablet 500 mg PO TID 10 Days Qty: 30 RF: 0 Discharge Instructions Instructions: Dental Abscess (ED) Additional Instructions: Your history exam is most concerning with continued dental infection. We will transition her from penicillin to Augmentin. Please encourage hydration. Tylenol and ibuprofen as needed for discomfort. Please continue with good dental hygiene, salt water rinses. You will need definitive care with a dentist, attached is a list of local dentist. If you develop swelling, fever/chills or other new/worsening symptoms please seek care urgently once again. Referrals: Rudy Laura [Primary Care Provider] - Discharge Data Discharge Date/Time-TO BE ENTERED AT DEPARTURE: 10/24/21 11:51 Medical Decision Making Patient is a pleasant 31-year-old male presenting today with chief complaint of left lower dental pain. He was seen here last Wednesday at which time he was started on penicillin. He states that he feels that the penicillin helps improve the pain slightly but only temporarily. States the pain has began to increase once again. Denies any fevers or chills. Patient does have overall poor dentition is not detected, routine basis On exam, patient appears nontoxic. Has not had any systemic symptoms. He does have poor dentition with multiple broken teeth in the left lower dental region. This is mild discomfort along the buccal side. However, he reports that it is primarily under the tooth. I do not see any swelling under the tongue, no significant lymphadenopathy, swelling. No drainable abscess is visualized. I am concerned that the patient continues to have dental infection despite the penicillin. Will transition to Augmentin. Encourage hydration. Tylenol and ibuprofen as needed for discomfort. Encourage good dental care. Encourage salt water rinses. I advised that without definitive care with a dentist, as this will continue to come back. List of local dentist given. Return precautions discussed. All questions concerns were addressed and he is in agreement with this plan. HPI General Mode of arrival: ambulatory . Date/Time Provider Initiated Documentation: 10/24/21 11:19 . Limitations to Documentation: no limitations . Information obtained by: patient and RN notes reviewed . History of Present Illness 31 year old M presents to the emergency department with the chief complaint of left lower dental pain, described as moderate, with intensity rated at 3. Quality is described as aching, and is localized to the mouth. Patient reports radiation to (toward the left ear). Patient started experiencing this day(s) and it has been constant. Medication improves symptom(s), (slightly improved with Penicillin but increased again) Eating worsens symptoms . Patient notes no other symptoms.. Patient did receive the following treatments prior to arrival, other (penicillin) Related Data Home Medications Medication Instructions Recorded Confirmed budesonide-formoterol [Symbicort] 2 puff INHALATION BID #10.2 g 08/08/20 10/24/21 acetaminophen 650 mg PO PRN PRN 02/14/21 10/24/21 dextroamphetamine-amphetamine 30 mg PO DAILY 10/19/21 10/24/21 fluoxetine 20 mg PO DAILY 10/19/21 10/24/21 amoxicillin-pot clavulanate 1 tab PO BID #14 tab 10/24/21 [Augmentin] Previous Rx's Medication Instructions Recorded budesonide-formoterol [Symbicort] 2 puff INHALATION BID #10.2 g 08/08/20 amoxicillin-pot clavulanate 1 tab PO BID #14 tab 10/24/21 [Augmentin] Allergies Allergy/AdvReac Type Severity Reaction Status Date / Time codeine Allergy Unverified 10/24/21 11:00 General Stated Complaint: DentalOral BIANKA: 4 Review of Systems Constitutional Constitutional: Reports as per HPI, Denies chills, Denies fever(s) and Denies headache(s) ENT Ears, Nose, Mouth, and Throat: Reports as per HPI, Reports dental pain, Denies ear discharge, Denies otalgia, Reports facial pain, Denies headache(s), Denies hoarseness, Denies nasal congestion and Denies sore throat Cardiovascular Cardiovascular: Reports as per HPI Respiratory Respiratory: Reports as per HPI and Denies cough Integumentary/Breasts Skin/Breast: Reports as per HPI, Denies erythema, Denies rash and Denies skin pain Neurologic Neurologic: Reports as per HPI and Denies headache(s) PFSH All Active Problems (Updated 10/24/21 @ 11:27 by RUIZ Matthews) Pain, dental (Acute) Dental infection (Acute) Medical History ADHD (attention deficit hyperactivity disorder) bilateral congenital hernias Depression Surgical History Repair of inguinal hernia Bilateral Social History Smoking/Tobacco Use Status: Current every day Tobacco Type: cigarettes Smoking risk assessment performed?: Yes Alcohol Intake: current Alcohol Intake frequency: 0-2 drinks per day Alcohol type: hard liquor Drug use: Daily Substance use type: marijuana Do you feel safe at home: Yes Do you feel safe in your relationship?: Yes Exam Const General: cooperative, healthy appearing, comfortable, no acute distress, well developed and well groomed Nutritional Appearance: average body habitus and well nourished Orientation: alert and awake [facility] Head: normal to inspection, normocephalic and atraumatic Ears: hearing grossly normal bilaterally, external ears normal and TM's normal bilaterally General nose exam: external nose normal and nares normal Face and sinus: normal facial exam, sinuses nontender and face symmetric Mouth: oral mucosae normal, lip normal and tongue normal Teeth and gingiva: poor dentition Throat: posterior oropharynx normal, tonsils normal and uvula midline Eyes General: appearance normal, both eyes and all related structures Neck Neck: normal visual inspection, full ROM, no lymphadenopathy, supple and no anterior neck swelling Resp Effort & Inspection: normal respiratory effort, able to speak in complete sentences and no respiratory distress Cardio Rate: regular rate Rhythm: regular rhythm Skin General skin exam: no rashes or lesions noted Trauma: no lacerations or abrasions Neuro General: patient alert and patient awake Cognition: normal cognition Speech: speech normal Gait: normal gait Psych Appearance: grossly normal and well kempt Mental Status: mental status grossly normal Speech and Movement: speech and movement normal Course Vital Signs Vital signs: Vital Signs Temperature 36.3 C L 10/24/21 10:57 Pulse 92 H 10/24/21 10:57 Respiratory Rate 16 10/24/21 10:57 Blood Pressure 124/71 10/24/21 10:57 Pulse Oximetry 83 L 10/24/21 10:57 Temperature 36.3 C L 10/24/21 10:57 Temperature Source Skin 10/24/21 10:57 Pulse 92 H 10/24/21 10:57 Respiratory Rate 16 10/24/21 10:57 Respiratory Effort 10/24/21 11:00 Blood Pressure 124/71 10/24/21 10:57 Blood Pressure Position Sitting 10/24/21 10:57 Pulse Oximetry 83 L 10/24/21 10:57 Oxygen Delivery Method Room Air 10/24/21 10:57 Oxygen Flow Rate 0 10/24/21 10:57 Pain Level 3 10/24/21 10:57 PAWSS Have you Been Recently Intoxicated or Drunk Within the Last 30 days?: No Have you Ever Experienced Previous Episodes of Alcohol Withdrawal?: No Have you ever Experienced Withdrawal Seizures?: No Have you ever Experienced Delirium Tremens(DT)s?: No Have you ever undergone Alcohol Rehabilitation Treatment (i.e, inpt ot outpatient treatment programs)?: No Have you ever Experienced Blackouts?: No Have you ever Combined Alcohol with other Downers within the last 90 days?: No Have you ever Combined Alcohol with any other Substance of Abuse during the last 90 days?: No Positive Blood Alcohol level on Presentation? [PCS.BAL]: No Evidence of Increased Autonomic Activity (i.e. HR>120, tremor, sweating, agitation, nausea)?: No Result: 0
== END 2021-10-24 11:51 | disposition home or self-care (01) ==
PROVIDERS: Emergency Provider Physician Assistant; PCP Physician Assistant
DX: K04.7 Periapical abscess without sinus (principal); R68.84 Jaw pain
CPT/HCPCS: 99283

== ENCOUNTER 2021-11-14 21:00 | Emergency (ER) | payer MEDICAID, SELFPAY ==
[2021-11-14 21:06] VITALS: BP 148/79; PULSE 113; RESP 17; TEMP 37.1; O2SAT 100
[2021-11-14 21:10] VITALS: RESP 17
--- NOTE | 2021-11-14 21:15 | DI.CT_ITS ---
Exam(s) CT ABDOMEN PELVIS WO EXAM: CT ABDOMEN PELVIS WO CLINICAL HISTORY: Bilateral Flank pain. TECHNIQUE: Imaging Protocol: Axial computed tomography images with coronal and sagittal reformatted images were created and reviewed CONTRAST MATERIAL: Intravenous: none Oral: None COMPARISON: CT ABD PELVIS WITH CONTRAST from 03/24/[address] CHEST PE CTA from 08/08/2020 FINDINGS: VISUALIZED LUNG BASES: No nodules nor pleural effusions evident. ABDOMEN: There is no ascites. LIVER: There are no obvious focal hepatic lesions evident of this noninfused study. GALLBLADDER/BILIARY: No obvious gallbladder pathology. CBD is not dilated. PANCREAS: No evidence of pancreatic mass nor dilatation of the pancreatic duct. SPLEEN: Spleen is not enlarged. No obvious intrasplenic lesions. ADRENALS: There are no significant adrenal masses. KIDNEYS:No cysts evident. No solid renal masses. No calculi nor hydronephrosis. . ABDOMINAL AORTA: Abdominal aorta is not enlarged. LYMPH NODES: There is no retroperitoneal nor paraaortic adenopathy. ABDOMINAL WALL: No evidence of significant anterior abdominal wall nor inguinal hernia. GI: There is no evidence of bowel obstruction, free air, nor abscess. PELVIS: LYMPH NODES: There is no intrapelvic nor inguinal adenopathy. GI: No evidence of appendicitis.No evidence of sigmoid diverticulitis. URINARY BLADDER: No calculi nor obvious masses evident REPRODUCTIVE: Prostate gland is not enlarged. Seminal vesicles unremarkable. OSSEOUS: No significant osseous lesions. IMPRESSION: 1. No significant findings on this noninfused CT scan the abdomen pelvis. RADIATION DOSE DELIVERED: 850.52mGy.cm Total DLP DATA REPOSITORY: All CT scans at this facility are submitted to the National Radiology Data Registry (NRDR) Dose Index Registry (DIR) with the [employer] ([employer]). RADIATION OPTIMIZATION: All CT scans at this facility use at least one of these dose optimization te chniques: automated exposure control; mA and/or kV adjustment per patient size (includes targeted exa ms where dose is matched to clinical indication); or iterative reconstruction.
--- NOTE | 2021-11-14 21:25 | ED.GENADUL_ITS ---
Discharge Plan Disposition Patient Disposition: HOME Condition: Stable Discharge Details Clinical Impression: Myalgia, Back pain Primary Care Provider: Rudy Laura ED Provider: Jadyn Grider Home Meds and New Rx's Prescriptions: No Action budesonide-formoterol [Symbicort] 160-4.5 mcg/actuation HFA aerosol inhaler 2 puff inhalation BID Qty: 10.2 RF: 0 acetaminophen 650 mg Tablet 650 mg PO PRN PRNRF: 0 dextroamphetamine-amphetamine 30 mg tablet 30 mg PO DAILY RF: 0 fluoxetine 20 mg capsule 20 mg PO DAILY RF: 0 Discharge Instructions Instructions: Viral Syndrome (ED), Back Pain (ED) Additional Instructions: At this time there is no evidence for kidney stone. I do suspect that you do have COVID-19. Please continue to quarantine until the test result comes back. We will notify you once we get the result, it typically takes 2 to 3 days. Please take Tylenol or Ibuprofen with food every 4-6 hours as needed for pain and swelling. Increase oral fluids. Take vitamins including zinc, vitamin D3 and vitamin C. Also on the CT it shows that you have little bit of lumbar spine narrowing and L5-S1 with some arthritis this could also be causing your back pain. Follow up with primary care provider in 3-5 days. Return to ED sooner if any worsening or concerns. Increase oral fluids. Stand Alone Forms: PENDING COVID-19 TESTING, Work Release Referrals: Rudy Laura [Primary Care Provider] - 2 weeks Medical Decision Making 31-year-old male presents to the ER with chief complaint of bilateral flank pain, body aches. He reports that his household is positive for COVID. They were tested +2 days ago. He denies any shortness of breath, productive cough. He did not take any Tylenol or ibuprofen prior to arrival. He does have some right upper quadrant abdominal tenderness to palpation. He reports mild diarrhea couple days ago. No nausea no vomiting. He does have a history of kidney stones per patient report. Past medical history includes ADHD, poor dentition and depression. He is a everyday smoker. Endorses marijuana use. CBC, CMP, CT abdomen without contrast, UA, Zofran and ibuprofen in her milligrams p.o. Send out COVID test ordered. CBC shows a white blood cell count of 17.98, sodium 135, AST is elevated to 61 ALT 82 urinalysis shows 80 ketones trace blood, no nitrite no leukocyte. Culture is not indicated at this time. CT ABD PELVIS WITH CONTRAST 03/24/2016 10:55 AM FINDINGS: Lungs: Visualized lung bases are clear. Heart: Heart size normal. Mediastinal space: The visualized distal esophagus is largely contracted without gross abnormality. Liver: Normal contour. No mass lesions. No intrahepatic biliary ductal dilatation. Gallbladder and bile ducts: Normal. No calcified stones. No ductal dilation. Pancreas: Normal. No inflammatory changes or ductal dilation. Spleen: Normal. No splenomegaly. Adrenal glands: Normal. No adrenal mass. Kidneys and ureters: No acute abnormalities. No hydronephrosis or hydroureter. There is moderate hyperdensity in the bilateral renal pyramids suggesting medullary nephrocalcinosis. This can be seen with renal tubular acidosis or medullary sponge kidney. No gentry urinary tract stones are identified. No ureteral stones. Stomach and bowel: The stomach is unremarkable. The small bowel is nondilated with no gross abnormality. No acute colonic abnormalities. Appendix: The appendix is normal in caliber and demonstrates no evidence of appendicitis. Intraperitoneal space: No free fluid or air. Vasculature: No acute process. No abdominal aortic aneurysm. Lymph nodes: No adenopathy. Urinary bladder: Unremarkable as visualized. Reproductive: Unremarkable as visualized. Bones/joints: No acute osseous abnormalities. Moderate right-sided facet hypertrophic change L5- S1. Slight disc space narrowing L5-S1. Soft tissues: Unremarkable. IMPRESSION: 1. No acute process. 2. Excessive density in the bilateral renal medullary pyramids consistent with mild medullary nephrocalcinosis. No gentry urinary tract stones or hydronephrosis. 3. Moderate osteoarthritic facet hypertrophy on the right at L5-S1, with mild disc space narrowing at this level. Thank you for allowing us to participate in the care of your patient. Dictated and Authenticated by: Raymond Weiss MD Discussed CT results with patient and home care he verbalizes understanding. He does report feeling better after medication here in the department. At this time I do suspect COVID and/or from lumbar go or muscle strain from working out when he reports that his back pain started happening after working out. I will discharge patient with albuterol inhaler, Flexeril and instructions for quarantine and intake vitamins including vitamin D3, zinc. This text was generated using Tittatation system, please disregard any oddities of phrase or misspellings. HPI General Mode of arrival: ambulatory . Date/Time Provider Initiated Documentation: 11/14/21 21:02 . Limitations to Documentation: no limitations . Information obtained by: patient and RN notes reviewed . HPI Narrative: 31-year-old male presents to the ER with chief complaint of bilateral flank pain, body aches. He reports that his household is positive for COVID. They were tested +2 days ago. He denies any shortness of breath, productive cough. He did not take any Tylenol or ibuprofen prior to arrival. He does have some right upper quadrant abdominal tenderness to palpation. He reports mild diarrhea couple days ago. No nausea no vomiting. He does have a history of kidney stones per patient report. Past medical history includes ADHD, poor dentition and depression. He is a everyday smoker. Endorses marijuana use. Related Data Home Medications Medication Instructions Recorded Confirmed budesonide-formoterol [Symbicort] 2 puff INHALATION BID #10.2 g 08/08/20 11/14/21 acetaminophen 650 mg PO PRN PRN 02/14/21 11/14/21 dextroamphetamine-amphetamine 30 mg PO DAILY 10/19/21 11/14/21 fluoxetine 20 mg PO DAILY 10/19/21 11/14/21 Previous Rx's Medication Instructions Recorded budesonide-formoterol [Symbicort] 2 puff INHALATION BID #10.2 g 08/08/20 Allergies Allergy/AdvReac Type Severity Reaction Status Date / Time codeine Allergy Unverified 11/14/21 21:10 General Stated Complaint: GenMedical BIANKA: 3 Review of Systems All systems reviewed & are unremarkable except as noted in HPI and below Gastrointestinal Gastrointestinal: Reports diarrhea Genitourinary Genitourinary: Reports flank pain PFSH All Active Problems (Updated 11/14/21 @ 22:35 by Jadyn Grider) Pain, dental (Acute) Dental infection (Acute) Myalgia (Acute) Back pain (Acute) Medical History ADHD (attention deficit hyperactivity disorder) bilateral congenital hernias Depression Surgical History Repair of inguinal hernia Bilateral Social History Smoking/Tobacco Use Status: Current every day Tobacco Type: cigarettes Smoking risk assessment performed?: Yes Alcohol Intake: current Alcohol Intake frequency: 0-2 drinks per day Alcohol type: hard liquor Drug use: Daily Substance use type: marijuana Do you feel safe at home: Yes Do you feel safe in your relationship?: Yes Exam Narrative Exam Narrative: Constitutional: Alert and oriented x3. Appears stated age. Normal body habitus. Patient appears uncomfortable. Head: Normocephalic, no trauma. Eyes: Pupils PERRL, Red reflex noted, EOM's intact. Eyelids symmetrical without lesions, discharge, or swelling. ENT: Bilateral TM's WNL, External ear normal to inspection, no mastoid TTP, swelling, or erythema, Nasal turbinates WNL, no nasal discharge. Normal dentition, Posterior pharynx WNL, no exudate. Chest: RRR, Normal S1, S2, distal pulses intact. Resp: Lungs clear to auscultation bilaterally, no wheezes, rales, or rhonchi. Abdomen: Soft, non-distended, Normoactive bowel sounds all 4 quads. Musculoskeletal: Normal gait, 5/5 strength to all four extremities. Skin: No suspicious rashes or lesions. Capillary refill less than 2 sec. Neurologic: Cranial nerves II-XII intact. Alert and oriented x 3. Motor: No defi cits noted. Sensory: Intact bilaterally all 4 extremities. Reflexes: DTR's intact bilaterally.. Hematologic/Lymphatic: No ecchymosis, no lymphadenopathy. Course Vital Signs Vital signs: Vital Signs Temperature 37.1 C 11/14/21 21:06 Pulse 113 H 11/14/21 21:06 Respiratory Rate 17 11/14/21 21:06 Blood Pressure 148/79 H 11/14/21 21:06 Pulse Oximetry 100 11/14/21 21:06 Temperature 37.1 C 11/14/21 21:06 Pulse 113 H 11/14/21 21:06 Respiratory Rate 17 11/14/21 21:10 Respiratory Effort Non-Labored 11/14/21 21:10 Respiratory Depth Normal 11/14/21 21:10 Respiratory Pattern Normal 11/14/21 21:10 Blood Pressure 148/79 H 11/14/21 21:06 Pulse Oximetry 100 11/14/21 21:06 Oxygen Delivery Method Room Air 11/14/21 21:06 Oxygen Flow Rate 0 11/14/21 21:06 Pain Level 10 11/14/21 21:06 PAWSS Have you Been Recently Intoxicated or Drunk Within the Last 30 days?: No Have you Ever Experienced Previous Episodes of Alcohol Withdrawal?: No Have you ever Experienced Withdrawal Seizures?: No Have you ever Experienced Delirium Tremens(DT)s?: No Have you ever undergone Alcohol Rehabilitation Treatment (i.e, inpt ot outpatient treatment programs)?: No Have you ever Experienced Blackouts?: No Have you ever Combined Alcohol with other Downers within the last 90 days?: No Have you ever Combined Alcohol with any other Substance of Abuse during the last 90 days?: No Positive Blood Alcohol level on Presentation? [PCS.BAL]: No Evidence of Increased Autonomic Activity (i.e. HR>120, tremor, sweating, agitation, nausea)?: No Result: 0
[2021-11-14] MEDS: Ibuprofen 800 MG TAB PO (21:35)
[2021-11-14] MEDS: Ondansetron O.D.T. 4 MG TABEF PO (21:35)
[2021-11-14 21:40] LABS: HCT 51.6 % (40.0-50.0); HGB 17.4 g/dL (13.5-17.5); MCH 29.2 pg (27.0-33.0); MCHC 33.7 % (32.0-36.0); MCV 86.7 fL (80-95); MPV 10.6 fL (8.0-11.0); Nucleated RBC 0 %; Platelet Count 259 10^3/uL (130-400); RBC 5.95 10^6/uL (4.36-5.78); RDW-SD 40.9 fL; WBC 17.98 10^3/uL (4.4-10.8)
[2021-11-14 21:56] LABS: ALT 82 U/L (16-63); AST 261 U/L (15-37); Albumin 4.9 g/dL (3.4-5.0); Alkaline Phosphatase 72 U/L (46-116); Anion Gap 13.4 mmol/L (3-11); BUN 14 mg/dL (7-18); Bilirubin, Total 0.6 mg/dL (0.2-1.0); CO2 22.6 mmol/L (21.0-32.0); CREATININE 1.2 mg/dL (0.70-1.30); Calcium 10.1 mg/dL (8.5-10.1); Chloride 99 mmol/L (98-107); Glucose 103 mg/dL (74-106); Potassium 3.8 mmol/L (3.5-5.1); Sodium 135 mmol/L (136-145); Total Protein 8.9 g/dL (6.4-8.2)
[2021-11-14 22:06] LABS: Bilirubin Negative (Negative); Blood Trace-intact (Negative); Clarity Clear (Clear); Glucose Negative (Negative); Ketones 80 mg/dL (Negative); Leukocyte Esterase Negative (Negative); Nitrite Negative (Negative); Urobilinogen 0.2 EU/dL (Up TO 0.2); pH 6.5 (5-8)
[2021-11-14 22:12] LABS: Absolute Monocyte Count 2.52 10^3/uL (0.1-0.8); Absolute Neutrophil Count 15.46 10^3/uL (1.2-6.7); Diff Comment Manual Differential; RBC Morphology Normal
--- NOTE | 2021-11-14 22:13 | DI.VRAD_ITS ---
PROCEDURE INFORMATION: Exam: CT Abdomen And Pelvis Without Contrast Exam date and time: 11/14/2021 9:25 PM Age: 31 years old Clinical indication: Other: Bilateral flank pain TECHNIQUE: Imaging protocol: Computed tomography of the abdomen and pelvis without contrast. Total images: 1243 COMPARISON: CT ABD PELVIS WITH CONTRAST 03/24/2016 10:55 AM FINDINGS: Lungs: Visualized lung bases are clear. Heart: Heart size normal. Mediastinal space: The visualized distal esophagus is largely contracted without gross abnormality. Liver: Normal contour. No mass lesions. No intrahepatic biliary ductal dilatation. Gallbladder and bile ducts: Normal. No calcified stones. No ductal dilation. Pancreas: Normal. No inflammatory changes or ductal dilation. Spleen: Normal. No splenomegaly. Adrenal glands: Normal. No adrenal mass. Kidneys and ureters: No acute abnormalities. No hydronephrosis or hydroureter. There is moderate hyperdensity in the bilateral renal pyramids suggesting medullary nephrocalcinosis. This can be seen with renal tubular acidosis or medullary sponge kidney. No gentry urinary tract stones are identified. No ureteral stones. Stomach and bowel: The stomach is unremarkable. The small bowel is nondilated with no gross abnormality. No acute colonic abnormalities. Appendix: The appendix is normal in caliber and demonstrates no evidence of appendicitis. Intraperitoneal space: No free fluid or air. Vasculature: No acute process. No abdominal aortic aneurysm. Lymph nodes: No adenopathy. Urinary bladder: Unremarkable as visualized. Reproductive: Unremarkable as visualized. Bones/joints: No acute osseous abnormalities. Moderate right-sided facet hypertrophic change L5-S1. Slight disc space narrowing L5-S1. Soft tissues: Unremarkable. IMPRESSION: 1. No acute process. 2. Excessive density in the bilateral renal medullary pyramids consistent with mild medullary nephrocalcinosis. No gentry urinary tract stones or hydronephrosis. 3. Moderate osteoarthritic facet hypertrophy on the right at L5-S1, with mild disc space narrowing at this level. Dictated and Authenticated by: Raymond Weiss MD. Ordering:SANDRA Salamanca MD
[2021-11-14 22:14] LABS: RBC 0-2 HPF (0-2); WBC 0-2 HPF (0-5)
[2021-11-14 22:15] LABS: Bacteria Rare HPF (Negative); C & S Indicated? No; Casts Negative LPF (Negative); Crystals Negative HPF (Negative); Epithelial Cells Negative HPF (Negative); Mucus Negative (Negative)
[2021-11-14 22:54] VITALS: BP 148/79; PULSE 113; RESP 17; TEMP 37.1; O2SAT 100
[2021-11-14] MEDS: Cyclobenzaprine 10 MG TAB PO (22:54)
[2021-11-14] MEDS: Cyclobenzaprine 10 MG TAB, 3 TABS/BTL PO (22:54)
[2021-11-16 16:04] LABS: COVID-19 RT-PCR UVMMC Result Positive (Negative)
--- NOTE | 2021-11-16 16:15 | NUR.NOTE ---
called patient to advise of +COVID result Nursing Note:
== END 2021-11-14 22:54 | disposition home or self-care (01) ==
PROVIDERS: Emergency Provider Registered Nurse Emergency; PCP Physician Assistant
DX: U07.1 COVID-19 (principal); M79.18 Myalgia, other site; M54.9 Dorsalgia, unspecified; R10.11 Right upper quadrant pain; Z87.442 Personal history of urinary calculi
CPT/HCPCS: 80053; 99284; U0003; 74176; 81003; 81015; 85025; 99283

== ENCOUNTER 2021-12-09 23:55 | Emergency (ER) | payer MEDICAID, SELFPAY ==
[2021-12-10 00:02] VITALS: BP 149/84; PULSE 79; RESP 18; TEMP 36.6; O2SAT 99
--- NOTE | 2021-12-10 00:28 | ED.GENADUL_ITS ---
Discharge Plan Disposition Patient Disposition: HOME Condition: Stable Discharge Details Clinical Impression: Jaw pain Primary Care Provider: Rudy Laura ED Provider: Zachary Banegas Home Meds and New Rx's Prescriptions: New amoxicillin 500 mg tablet 500 mg PO BID Qty: 20 RF: 0 gabapentin 300 mg capsule 300 mg PO Q8H 10 Days Qty: 30 RF: 0 Continued sertraline 50 mg tablet 50 mg PO DAILY RF: 0 varenicline 0.5 mg tablet 0.5 mg PO BID RF: 0 albuterol sulfate [ProAir HFA] 90 mcg/actuation HFA aerosol inhaler 2 puff inhalation Q4H PRNRF: 0 budesonide-formoterol [Symbicort] 160-4.5 mcg/actuation HFA aerosol inhaler 2 puff inhalation BID Qty: 10.2 RF: 0 acetaminophen 650 mg Tablet 650 mg PO PRN PRNRF: 0 dextroamphetamine-amphetamine 30 mg tablet 30 mg PO DAILY RF: 0 fluoxetine 20 mg capsule 20 mg PO DAILY RF: 0 Discharge Instructions Additional Instructions: I suspect you could be suffering from TMJ disorder which will need follow up with your primary care provider and ENT you are being treated also for a possible dental infection you can take 1000mg tylenol and 600mg ibuprofen every 6 hours as needed if you feel more ill, have fevers, or difficulty swallowing liquids return to the emergency department Medical Decision Making 31 yo male comes in with one week of intermittent right sided and sometimes left sided jaw pain. He states it comes and goes and the only thing that he knows sometimes makes it worse is biting down. Denies fevers and states doesn't feel like prior dental infections he has had. He denies difficulty swallowing and otherwise feels well. He arrives in no distress. No submandibular swelling. Normal range of motion of the mandible. Denies any recent trauma. Normal posterior pharynx and midline uvula. Does have numerous dental caries and erosions, no visible dental abscess. He primarily localizes the pain to the right tmj, no erythema or warmth. Given location of pain I suspect tmj disorder and less likely dental infection. No findings to suggest abscess, epiglotitis or pharyngitis. Discussed with pt and he had an appointment with EN[facility] this month apparently so advised to keep this and will also treat with amoxicillin for pos sible dental infection. HE is stable for d/c and discussed return precautions Differential Diagnosis Differential Diagnosis: tmj disorder, dental infection HPI General Mode of arrival: ambulatory . Date/Time Provider Initiated Documentation: 12/09/21 23:58 . Limitations to Documentation: no limitations . Information obtained by: patient . History of Present Illness 31 year old M presents to the emergency department with the chief complaint of jaw pain, described as moderate, Quality is described as stabbing (and shooting pain), Patient reports no radiation. Patient started experiencing this week(s) (1) and it has been intermittent. No relieving factors improve symptom(s), Other factors that worsen symptoms (biting down) . Patient notes no other symptoms.. Patient did receive the following treatments prior to arrival, NSAID Related Data Home Medications Medication Instructions Recorded Confirmed budesonide-formoterol [Symbicort] 2 puff INHALATION BID #10.2 g 08/08/20 12/10/21 acetaminophen 650 mg PO PRN PRN 02/14/21 12/10/21 dextroamphetamine-amphetamine 30 mg PO DAILY 10/19/21 12/10/21 fluoxetine 20 mg PO DAILY 10/19/21 11/14/21 albuterol sulfate 90 mcg/actuation 2 puff INHALATION Q4H PRN g 12/01/21 12/10/21 aerosol inhaler sertraline 50 mg tablet 50 mg PO DAILY 12/01/21 12/10/21 varenicline 0.5 mg tablet 0.5 mg PO BID 12/01/21 12/10/21 amoxicillin 500 mg PO BID #20 tab 12/10/21 gabapentin 300 mg PO Q8H 10 Days #30 cap 12/10/21 Previous Rx's Medication Instructions Recorded budesonide-formoterol [Symbicort] 2 puff INHALATION BID #10.2 g 08/08/20 amoxicillin 500 mg PO BID #20 tab 12/10/21 gabapentin 300 mg PO Q8H 10 Days #30 cap 12/10/21 Allergies Allergy/AdvReac Type Severity Reaction Status Date / Time codeine Allergy Unverified 11/14/21 21:10 General Stated Complaint: DentalOral BIANKA: 4 Review of Systems All systems reviewed & are unremarkable except as noted in HPI and below Constitutional Constitutional: Denies chills and Denies fever(s) ENT Ears, Nose, Mouth, and Throat: Denies dysphagia Cardiovascular Cardiovascular: Denies chest pain and Denies dyspnea Respiratory Respiratory: Denies cough and Denies dyspnea Gastrointestinal Gastrointestinal: Denies abdominal pain, Denies dysphagia, Denies nausea and Denies vomiting Musculoskeletal Musculoskeletal: Denies joint swelling PFSH All Active Problems (Updated 12/10/21 @ 00:29 by Zachary Banegas MD) Jaw pain (Acute) Nasal congestion (Acute) recurrent left-sided epistaxis and sinus fullness Pain, dental (Acute) Dental infection (Acute) Myalgia (Acute) Back pain (Acute) Medical History (Updated 12/10/21 @ 00:29 by Zachary Banegas MD) ADHD (attention deficit hyperactivity disorder) Anxiety disorder bilateral congenital hernias COVID-19 Depression Nicotine dependence Opioid dependence, continuous in remission Surgical History Repair of inguinal hernia Bilateral Social History Smoking/Tobacco Use Status: Current every day Tobacco Type: cigarettes Smoking risk assessment performed?: Yes Alcohol Intake: current Alcohol Intake frequency: 0-2 drinks per day Alcohol type: hard liquor Drug use: Daily Substance use type: marijuana Do you feel safe at home: Yes Do you feel safe in your relationship?: Yes Exam Const General: no acute distress Orientation: alert HENMT Head: normal to inspection Ears: external ears normal General nose exam: external nose normal Mouth: moist mucous membranes Eyes General: appearance normal, both eyes and all related structures Neck Neck: normal visual inspection Resp Effort & Inspection: normal respiratory effort and able to speak in complete sentences Cardio Rate: regular rate Skin General skin exam: no rashes or lesions noted Neuro General: patient alert and patient oriented x3 Extrem General: normal to inspection Psych Mental Status: mental status grossly normal Course Vital Signs Vital signs: Vital Signs Temperature 36.6 C 12/10/21 00:02 Pulse 79 12/10/21 00:02 Respiratory Rate 18 12/10/21 00:02 Blood Pressure 149/84 H 12/10/21 00:02 Pulse Oximetry 99 12/10/21 00:02 Temperature 36.6 C 12/10/21 00:02 Pulse 79 12/10/21 00:02 Respiratory Rate 18 12/10/21 00:02 Respiratory Effort 12/10/21 00:05 Blood Pressure 149/84 H 12/10/21 00:02 Pulse Oximetry 99 12/10/21 00:02 Pain Level 8 12/10/21 00:05
[2021-12-10] MEDS: Gabapentin 300 MG CAP PO (00:33)
[2021-12-10] MEDS: Amoxicillin 500 MG CAP PO (00:35)
== END 2021-12-10 00:37 | disposition home or self-care (01) ==
PROVIDERS: Emergency Provider Emergency Medicine; PCP Physician Assistant
DX: R68.84 Jaw pain (principal)
CPT/HCPCS: 99283

== ENCOUNTER 2021-12-25 18:57 | Emergency (ER) | payer MEDICAID, SELFPAY ==
[2021-12-25 19:04] VITALS: BP 134/76; PULSE 80; RESP 18; TEMP 36.4; O2SAT 99
--- NOTE | 2021-12-25 19:21 | NUR.NOTE ---
I have reviewed and agree with assessment by ADALGISA, EMTP Nursing Note:
--- NOTE | 2021-12-25 19:31 | W.ED.GENAD ---
Discharge Plan Disposition Patient Disposition: HOME Condition: Stable Discharge Details Clinical Impression: Dental infection Primary Care Provider: Rudy Laura ED Provider: Robert Young Home Meds and New Rx's Prescriptions: New amoxicillin-pot clavulanate 875-125 mg tablet 1 tab PO BID Qty: 14 0RF Continued sertraline 50 mg tablet 50 mg PO DAILY 0RF varenicline 0.5 mg tablet 0.5 mg PO BID 0RF Rx Instructions: Start with 0.5 tablet daily. Increase weekly by 0.5 tablets until taking one full tablet twice daily. albuterol sulfate [ProAir HFA] 90 mcg/actuation HFA aerosol inhaler 2 puff inhalation Q4H PRN0RF Rx Instructions: 1-2 puff as directed every 4-6 hours as needed budesonide-formoterol [Symbicort] 160-4.5 mcg/actuation HFA aerosol inhaler 2 puff inhalation BID Qty: 10.2 0RF acetaminophen 650 mg Tablet 650 mg PO PRN PRN0RF dextroamphetamine-amphetamine 30 mg tablet 30 mg PO DAILY 0RF Label Comments: TAKE 1 TABLET BY MOUTH EVERY DAY NEEDED Discharge Instructions Instructions: Dental Abscess (ED) Additional Instructions: Please take your antibiotics as prescribed and return to the emergency department for any new or significant worsening symptoms especially fever chills, swelling of your tongue or worsening swelling to your mouth, inability to swallow. Otherwise it is very important that you follow-up with a dental provider for definitive care of your dental complaint. Feel free to take [id number] pain medication such as ibuprofen or acetaminophen as needed for discomfort. Medical Decision Making patient presenting to the emergency department for chief complaint of dental pain with swelling to the face. Patient reports previous issues with dental abscess and has applied and waiting to get into dental. Patient's primary care provider would not prescribe him medications without evaluating him first. Patient denies fever chills, difficulty breathing or swallowing, or neurological symptoms. Physical exam shows erythema and slight swelling to the base of teeth 9 and 10 with severe dental decay and tooth loss noted throughout the entire oral cavity. Due to this patient was placed upon Augmentin and encouraged to follow-up with dental provider as soon as able to. Tigb-rtq-vzeqzcl pain medication was recommended. no signs of deep neck space infection ( Retropharyngeal abscess, Arnoldo's angina, Parapharyngeal space infection, Peritonsillar Abscess ([employer])) or Epiglottitis. Pt non toxic and stable. After discussion of diagnosis and plan of care patient has no further needs, questions, or concerns and states clear understanding to return to the emergency department for any worsening symptoms. HPI General Mode of arrival: ambulatory. Date/Time Provider Initiated Documentation: 12/25/21 19:17. Limitations to Documentation: no limitations. Information obtained by: patient. History of Present Illness 31 year old M presents to the emergency department with the chief complaint of Dental pain/ infection, described as moderate and similar to prior episodes, with intensity rated at 8. Quality is described as aching, and is localized to the mouth. Patient reports no radiation. Patient started experiencing this day(s) (1) and it has been constant. No exacerbating factors reported . Patient notes no other symptoms.. Patient did receive the following treatments prior to arrival, NSAID Related Data Home Medications Medication Instructions Recorded Confirmed budesonide-formoterol HFA 160 2 puff INHALATION BID #10.2 g 08/08/20 12/25/21 mcg-4.5 mcg/actuation aerosol inhaler (Symbicort) acetaminophen 650 mg tablet 650 mg PO PRN PRN 02/14/21 12/25/21 dextroamphetamine-amphetamine 30 30 mg PO DAILY 10/19/21 12/25/21 mg tablet albuterol sulfate 90 mcg/actuation 2 puff INHALATION Q4H PRN g 12/01/21 12/25/21 aerosol inhaler (ProAir HFA) sertraline 50 mg tablet 50 mg PO DAILY 12/01/21 12/25/21 varenicline 0.5 mg tablet 0.5 mg PO BID 12/01/21 12/25/21 amoxicillin 875 mg-potassium 1 tab PO BID #14 tab 12/25/21 clavulanate 125 mg tablet Previous Rx's Medication Instructions Recorded budesonide-formoterol HFA 160 2 puff INHALATION BID #10.2 g 08/08/20 mcg-4.5 mcg/actuation aerosol inhaler (Symbicort) amoxicillin 875 mg-potassium 1 tab PO BID #14 tab 12/25/21 clavulanate 125 mg tablet Allergies Allergy/AdvReac Type Severity Reaction Status Date / Time codeine Allergy Unverified 12/25/21 19:11 General Stated Complaint: DentalOral BIANKA: 4 Review of Systems Constitutional Constitutional: Denies chills and Denies fever(s) ENT Ears, Nose, Mouth, and Throat: Reports as per HPI, Denies change in voice, Reports dental pain, Denies dysphagia, Denies throat swelling and Denies tongue swelling Cardiovascular Cardiovascular: Denies chest pain and Denies dyspnea Respiratory Respiratory: Denies dyspnea, Denies stridor and Denies wheezing Gastrointestinal Gastrointestinal: Denies abdominal pain, Denies dysphagia, Denies nausea and Denies vomiting Integumentary/Breasts Skin/Breast: Denies rash Allergic/Immunologic Allergic/Immunologic: Denies throat swelling, Denies tongue swelling and Denies wheezing PFSH All Active Problems Anterior epistaxis (Acute) Jaw pain (Acute) Nasal congestion (Acute) recurrent left-sided epistaxis and sinus fullness Pain, dental (Acute) Dental infection (Acute) Medical History ADHD (attention deficit hyperactivity disorder) Anxiety disorder bilateral congenital hernias COVID-19 Depression Nicotine dependence Opioid dependence, continuous in remission Surgical History Repair of inguinal hernia Bilateral Social History Smoking/Tobacco Use Status: Current every day Tobacco Type: cigarettes Smoking risk assessment performed?: Yes Alcohol Intake: current Alcohol Intake frequency: 0-2 drinks per day Alcohol type: hard liquor Drug use: Rarely Substance use type: marijuana Household members: spouse current occupation: disabled Pets and animals: Yes Pets and animals: cat(s) What is your relationship status?: Panel score (0-1 are the most socially isolated patients): 1 Do you feel safe at home: Yes Do you feel safe in your relationship?: Yes Exam Const General: cooperative Orientation: alert, awake and oriented x3 Limitations: mental status not altered [facility] Head: normal to inspection, normocephalic and atraumatic Ears: hearing grossly normal bilaterally, normal mastoids bilaterally and no periauricular adenopathy General nose exam: external nose normal Mouth: oropharynx normal, no drooling, no muffled voice, normal tongue and no trismus Teeth and gingiva: caries, poor dentition and other (Multiple missing teeth, erythema surrounding base of teeth 9 and 10) Throat: posterior oropharynx normal, tonsils normal and uvula midline Eyes General: appearance normal, both eyes and all related structures Pupils: PERRL Neck Neck: normal visual inspection, full ROM, no meningeal signs, trachea midline, no anterior neck swelling and no midline deformity Resp Effort & Inspection: normal respiratory effort and able to speak in complete sentences Course Vital Signs Vital signs: Vital Signs Temperature 36.4 C L 12/25/21 19:04 Pulse 80 12/25/21 19:04 Respiratory Rate 18 12/25/21 19:04 Blood Pressure 134/76 12/25/21 19:04 Pulse Oximetry 99 12/25/21 19:04 Temperature 36.4 C L 12/25/21 19:04 Temperature Source Skin 12/25/21 19:04 Pulse 80 12/25/21 19:04 Respiratory Rate 18 12/25/21 19:04 Respiratory Effort 12/25/21 19:16 Blood Pressure 134/76 12/25/21 19:04 Blood Pressure Position Sitting 12/25/21 19:04 Pulse Oximetry 99 12/25/21 19:04 Oxygen Delivery Method Room Air 12/25/21 19:04 Oxygen Flow Rate 0 12/25/21 19:04 Pain Level 1 12/25/21 19:13 PAWSS Have you Been Recently Intoxicated or Drunk Within the Last 30 days?: No Have you Ever Experienced Previous Episodes of Alcohol Withdrawal?: No Have you ever Experienced Withdrawal Seizures?: No Have you ever Experienced Delirium Tremens(DT)s?: No Have you ever undergone Alcohol Rehabilitation Treatment (i.e, inpt ot outpatient treatment programs)?: No Have you ever Experienced Blackouts?: No Have you ever Combined Alcohol with other Downers within the last 90 days?: No Have you ever Combined Alcohol with any other Substance of Abuse during the last 90 days?: No Evidence of Increased Autonomic Activity (i.e. HR>120, tremor, sweating, agitation, nausea)?: No Result: 0
[2021-12-25] MEDS: Amoxicillin 875/Clav. 125 TAB PO (19:45)
== END 2021-12-25 19:45 | disposition home or self-care (01) ==
PROVIDERS: Emergency Provider Nurse Practitioner Family; PCP Physician Assistant
DX: K04.7 Periapical abscess without sinus (principal)
CPT/HCPCS: 99283

== ENCOUNTER 2022-02-05 21:49 | Emergency (ER) | payer MEDICAID, SELFPAY ==
[2022-02-05 22:00] VITALS: BP 142/66; PULSE 78; RESP 18; TEMP 36.3; O2SAT 98
--- NOTE | 2022-02-05 22:21 | ED.GENADUL_ITS ---
Discharge Plan Disposition Patient Disposition: HOME Condition: Stable Discharge Details Chief Complaint: RashLesion Clinical Impression: Tick bite of back Primary Care Provider: Rudy Laura ED Provider: Kamaljit Arana Discharge Instructions Instructions: Tick Bite (ED) Additional Instructions: The head of the tick was removed without difficulty. A single dose of doxycycline was provided. Please watch for new or worsening symptoms and return to the ER for any concerns Medical Decision Making 31-year-old gentleman, tetanus up-to-date, presents for a partially embedded tick, likely present since taking a walk yesterday early afternoon but cannot be sure. Denies any other symptoms. The tick head was easily removed using 11 blade. The area was appropriately cleaned and dressed. A single dose of p.o. doxycycline 200 mg given Standard discharge and return precautions provided. This documentation was generated using [employer] system, please disregard any oddities of phrase or misspellings. Medical Records Medical records reviewed: Yes I reviewed the patient's medical records. HPI General Mode of arrival: ambulatory . Date/Time Provider Initiated Documentation: 02/05/22 22:20 . Limitations to Documentation: no limitations . Information obtained by: patient . History of Present Illness 31 year old M presents to the emergency department with the chief complaint of tick bite, described as mild, with intensity rated at 1. Quality is described as aching, and is localized to the back and right. Patient reports no radiation. Patient started experiencing this day(s) (1-2) and it has been constant. improves with No relieving factors improve symptom(s), No exacerbating factors reported . Patient notes no other symptoms.. Patient did receive the following treatments prior to arrival, none Related Data Allergies Allergy/AdvReac Type Severity Reaction Status Date / Time codeine Allergy Unverified 02/05/22 22:05 General Stated Complaint: RashLesion BIANKA: 4 Review of Systems Constitutional Constitutional: Denies fever(s) Musculoskeletal Musculoskeletal: Denies arthralgias and Denies stiffness Integumentary/Breasts Skin/Breast: Denies rash PFSH All Active Problems (Updated 02/05/22 @ 22:29 by RUIZ Wayne) Tick bite of back (Acute) Anterior epistaxis (Acute) Nasal congestion (Acute) recurrent left-sided epistaxis and sinus fullness Pain, dental (Acute) Dental infection (Acute) Medical History ADHD (attention deficit hyperactivity disorder) Anxiety disorder bilateral congenital hernias COVID-19 Depression Nicotine dependence Opioid dependence, continuous in remission Surgical History Repair of inguinal hernia Bilateral Social History Smoking/Tobacco Use Status: Current every day Tobacco Type: cigarettes Smoking risk assessment performed?: Yes Alcohol Intake: current Alcohol Intake frequency: 0-2 drinks per day Alcohol type: hard liquor Drug use: Rarely Substance use type: marijuana Household members: spouse current occupation: disabled Pets and animals: Yes Pets and animals: cat(s) What is your relationship status?: Panel score (0-1 are the most socially isolated patients): 1 Do you feel safe at home: Yes Do you feel safe in your relationship?: Yes Exam Const General: cooperative, healthy appearing, comfortable and no acute distress Orientation: alert and awake [facility] Head: normal to inspection, normocephalic and atraumatic Eyes Conjunctivae: conjunctivae normal Neck Neck: normal visual inspection, trachea midline and supple Resp Effort & Inspection: normal respiratory effort and able to speak in complete sentences Back/Spine/Pelvis Back/spine/pelvis image: 1. What appears to be an embedded head of a tic. No tenderness, warmth, erythema, discharge or drainage. Skin General skin exam: no rashes or lesions noted Neuro General: patient alert, patient awake, moves all extremities and no focal motor deficits Cognition: normal cognition Speech: speech normal Gait: normal gait Sensory Exam: no sensory deficits noted Psych Appearance: grossly normal Mental Status: mental status grossly normal Course Vital Signs Vital signs: Vital Signs Temperature 36.3 C L 02/05/22 22:00 Pulse 78 02/05/22 22:00 Respiratory Rate 18 02/05/22 22:00 Blood Pressure 142/66 H 02/05/22 22:00 Pulse Oximetry 98 02/05/22 22:00 Temperature 36.3 C L 02/05/22 22:00 Pulse 78 02/05/22 22:00 Respiratory Rate 18 02/05/22 22:00 Blood Pressure 142/66 H 02/05/22 22:00 Blood Pressure Position Sitting 02/05/22 22:00 Pulse Oximetry 98 02/05/22 22:00 Oxygen Delivery Method Room Air 02/05/22 22:00 Oxygen Flow Rate 0 02/05/22 22:00 Pain Level 0 02/05/22 22:00
[2022-02-05] MEDS: Doxycycline Hyclate 100 MG CAP 200 MG PO (22:39)
== END 2022-02-05 22:38 | disposition home or self-care (01) ==
PROVIDERS: Emergency Provider Physician Assistant; PCP Physician Assistant
DX: S20.461A Insect bite (nonvenomous) of right back wall of thorax, initial encounter (principal); W57.XXXA Bitten or stung by nonvenomous insect and other nonvenomous arthropods, initial encounter
CPT/HCPCS: 99283

== ENCOUNTER 2022-03-12 21:06 | Emergency (ER) | payer MEDICAID, SELFPAY ==
[2022-03-12 21:11] VITALS: BP 142/94; PULSE 70; RESP 18; TEMP 37.1; O2SAT 98
--- NOTE | 2022-03-12 21:30 | DI.CT_ITS ---
Exam(s) CT ABDOMEN PELVIS WO EXAM: CT ABDOMEN PELVIS WO CLINICAL HISTORY: abdominal pain, llq. TECHNIQUE: Imaging Protocol: Axial computed tomography images with coronal and sagittal reformatted images were created and reviewed CONTRAST MATERIAL: Intravenous: none Oral: None COMPARISON: CT CT ABDOMEN PELVIS WO from 11/14/2021 FINDINGS: VISUALIZED LUNG BASES: No nodules nor pleural effusions evident. ABDOMEN: There is no ascites. LIVER: There are no obvious focal hepatic lesions evident of this noninfused study. GALLBLADDER/BILIARY: No obvious gallbladder pathology. CBD is not dilated. PANCREAS: No evidence of pancreatic mass nor dilatation of the pancreatic duct. SPLEEN: Spleen is not enlarged. No obvious intrasplenic lesions. ADRENALS: There are no significant adrenal masses. KIDNEYS:No cysts evident. No solid renal masses. No calculi nor hydronephrosis. . ABDOMINAL AORTA: Abdominal aorta is not enlarged. LYMPH NODES: There is no retroperitoneal nor paraaortic adenopathy. ABDOMINAL WALL: No evidence of significant anterior abdominal wall nor inguinal hernia. GI: There is no evidence of bowel obstruction, free air, nor abscess. PELVIS: LYMPH NODES: There is no intrapelvic nor inguinal adenopathy. GI: No evidence of appendicitis.There appears to be circumferential mural thickening rectosigmoid and there is some mild surrounding streaking as well as a tiny amount of free fluid in the most dependen t aspect of the pelvis.Possibly related to colitis or subtle diverticulitis URINARY BLADDER: No significant findings. No gas therein. REPRODUCTIVE: Prostate and seminal vesicles unremarkable. Not enlarged. OSSEOUS: No significant osseous lesions. Sacroiliac joints unremarkable. IMPRESSION: 1. There is circumferential thickening of most of the length of the rectosigmoid with some mild adjac ent fat stranding and tiny amount of free fluid in the dependent aspect of the pelvis. Possibly rela maylin to colitis. Cannot exclude subtle diverticulitis although this would be somewhat unlikely in thi s relatively young age group. Appropriate follow-up is recommended 2. No evidence of appendicitis. Study 1st read by [facility] Final report called by myself to ER physician 03/13/2022 8:30 a.m. RADIATION DOSE DELIVERED: 777.01mGy.cm Total DLP DATA REPOSITORY: All CT scans at this facility are submitted to the National Radiology Data Registry (NRDR) Dose Index Registry (DIR) with the [employer] (ACR). RADIATION OPTIMIZATION: All CT scans at this facility use at least one of these dose optimization te chniques: automated exposure control; mA and/or kV adjustment per patient size (includes targeted exa ms where dose is matched to clinical indication); or iterative reconstruction.
[2022-03-12 22:02] LABS: Abs Immature Grans 0.04 10^3/uL (0.0-0.06); Absolute Eosinophil Count 0.14 10^3/uL (0.0-0.7); Absolute Lymphocyte Count 3.09 10^3/uL (1.2-3.4); Absolute Monocyte Count 1.46 10^3/uL (0.1-0.8); Basophils % 0.5; Eosinophils % 1.3; HCT 45.6 % (40.0-50.0); HGB 15.4 g/dL (13.5-17.5); Immature Grans % 0.4; Lymphocytes % 28.1; MCH 30.5 pg (27.0-33.0); MCHC 33.8 % (32.0-36.0); MCV 90 fL (80-95); MPV 10.9 fL (8.0-11.0); Monocytes % 13.3; Neutrophils % 56.4; Platelet Count 258 10^3/uL (130-400); RBC 5.05 10^6/uL (4.36-5.78); RDW 13.5 % (11.8-14.1); RDW-SD 45.1 fL; WBC 11.01 10^3/uL (4.4-10.8)
[2022-03-12 22:03] LABS: Absolute Basophil Count 0.06 10^3/uL (0.0-0.2); Absolute Neutrophil Count 6.21 10^3/uL (1.2-6.7)
[2022-03-12 22:08] LABS: Bilirubin Negative (Negative); Blood Negative (Negative); Clarity Clear (Clear); Glucose Negative (Negative); Ketones Negative (Negative); Leukocyte Esterase Negative (Negative); Nitrite Negative (Negative); Specific Gravity >= 1.030 (1.005-1.025); Urobilinogen 0.2 EU/dL (Up TO 0.2); pH 6.5 (5-8)
[2022-03-12] MEDS: Acetaminophen 325 MG TAB 650 MG PO (22:10)
[2022-03-12 22:15] LABS: ALT 24 U/L (16-63); AST 16 U/L (15-37); Alkaline Phosphatase 75 U/L (46-116); BUN 20 mg/dL (7-18); Bilirubin, Total 0.3 mg/dL (0.2-1.0); CREATININE 1.3 mg/dL (0.70-1.30); Chloride 104 mmol/L (98-107); Glucose 98 mg/dL (74-106); Lipase 48 U/L (73-393); Potassium 3.9 mmol/L (3.5-5.1); Sodium 141 mmol/L (136-145); Total Protein 7.4 g/dL (6.4-8.2)
--- NOTE | 2022-03-12 23:55 | ED.GENADUL_ITS ---
Discharge Plan Disposition Patient Disposition: HOME Condition: Stable Discharge Details Clinical Impression: Abdominal pain Primary Care Provider: Rudy Laura ED Provider: Evelyn White Home Meds and New Rx's Prescriptions: New amoxicillin-pot clavulanate 875-125 mg tablet 1 tab PO BID Qty: 18 0RF Discharge Instructions Instructions: Diverticulitis (ED), Abdominal Pain (ED) Additional Instructions: Take ibuprofen and Tylenol as needed for pain Take antibiotic as prescribed Yogurt daily while on antibiotic Please return with worsening pain, fever or chills, or should he have new or worsening complaints Referrals: Rudy Laura [Primary Care Provider] - Discharge Data Discharge Date/Time-TO BE ENTERED AT DEPARTURE: 03/13/22 01:26 Medical Decision Making Patient appears well, he is quite tender in his left lower quadrant but there is no palpable hernia His diagnostic labs do not show acute abnormality, his urinalysis does not show blood or infection He is pending CT abdomen and pelvis noncontrast at this time CT was ordered without contrast secondary to national shortage and I think it is a reasonable preliminary study at this time as patient has a relatively benign exam CT scan shows evidence of diverticulitis, will prescribe Augmentin, patient resting comfortably in room, actually asking if he can work tomorrow Feels comfortable discharge home Will give 2 tablets of Augmentin to go and prescription for home Return precautions discussed and patient is understanding Medical Records Medical records reviewed: Yes I reviewed the patient's medical records. Lab Data Lab results reviewed: Yes I reviewed the patient's lab results. HPI General Date/Time Provider Initiated Documentation: 03/12/22 21:42 . HPI Narrative: This otherwise healthy 31-year-old gentleman presents with report of left lower quadrant abdominal pain persistent for the past 12 hours. He states it started last evening. He denies any known injury but does state he has been moving motorcycle a week denies any groin pain or dysuria. He denies any fever or chills. He denies any nausea or vomiting. He denies any chest pain or shortness of breath. He states the pain is exacerbated with bowel movements and urinating. Related Data Home Medications Medication Instructions Recorded Confirmed amoxicillin 875 mg-potassium 1 tab PO BID #18 tabs 03/13/22 clavulanate 125 mg tablet Previous Rx's Medication Instructions Recorded amoxicillin 875 mg-potassium 1 tab PO BID #18 tabs 03/13/22 clavulanate 125 mg tablet Allergies Allergy/AdvReac Type Severity Reaction Status Date / Time codeine Allergy Unverified 02/05/22 22:05 General Stated Complaint: Abd Prob BIANKA: 3 Review of Systems All systems reviewed & are unremarkable except as noted in HPI and below PFSH All Active Problems (Updated 03/13/22 @ 00:49 by RUIZ Muñoz) Abdominal pain (Acute) Anterior epistaxis (Acute) Nasal congestion (Acute) recurrent left-sided epistaxis and sinus fullness Pain, dental (Acute) Dental infection (Acute) Medical History ADHD (attention deficit hyperactivity disorder) Anxiety disorder bilateral congenital hernias COVID-19 Depression Nicotine dependence Opioid dependence, continuous in remission Surgical History Repair of inguinal hernia Bilateral Social History Smoking/Tobacco Use Status: Current every day Tobacco Type: cigarettes Smoking risk assessment performed?: Yes Alcohol Intake: current Alcohol Intake frequency: 0-2 drinks per day Alcohol type: hard liquor Drug use: Rarely Substance use type: former substance user and marijuana Household members: spouse current occupation: disabled Pets and animals: Yes Pets and animals: cat(s) What is your relationship status?: Panel score (0-1 are the most socially isolated patients): 1 Do you feel safe at home: Yes Do you feel safe in your relationship?: Yes Exam Const General: cooperative, comfortable and no acute distress Resp Effort & Inspection: normal respiratory effort Auscultation: clear to auscultation bilaterally Cardio Rate: regular rate Rhythm: regular rhythm GI Inspection: normal to inspection Other: Tenderness with palpation to the left lower quadrant no rebound and guarding no cva tenderness Skin General skin exam: no rashes or lesions noted Neuro General: patient alert and patient oriented x3 Extrem General: normal to inspection Course Vital Signs Vital signs: Vital Signs Temperature 37.1 C 03/12/22 21:11 Pulse 70 03/12/22 21:11 Respiratory Rate 18 03/12/22 21:11 Blood Pressure 142/94 H 03/12/22 21:11 Pulse Oximetry 98 03/12/22 21:11 Temperature 37.1 C 03/12/22 21:11 Temperature Source Temporal Artery Scan 03/12/22 21:11 Pulse 70 03/12/22 21:11 Respiratory Rate 18 03/12/22 21:11 Respiratory Effort 03/12/22 21:14 Blood Pressure 142/94 H 03/12/22 21:11 Blood Pressure Position Sitting 03/12/22 21:11 Pulse Oximetry 98 03/12/22 21:11 Oxygen Delivery Method Room Air 03/12/22 21:11 Oxygen Flow Rate 0 03/12/22 21:11 Pain Level 4 03/12/22 21:14 Lab/Test Results Lab/Test Results: Laboratory Tests Range/Units 03/12/22 03/12/22 03/12/22 21:45 21:45 21:45 WBC (4.4-10.8) 10^3/uL 11.01 H RBC (4.36-5.78) 10^6/uL 5.05 Hgb (13.5-17.5) g/dL 15.4 Hct (40.0-50.0) % 45.6 MCV (80-95) fL 90 MCH (27.0-33.0) pg 30.5 MCHC (32.0-36.0) % 33.8 RDW (11.8-14.1) % 13.5 Plt Count (130-400) 10^3/uL 258 MPV (8.0-11.0) fL 10.9 Immature Gran % 0.4 Neutrophils % 56.4 Lymphocytes % 28.1 Monocytes % 13.3 Eosinophils % 1.3 Basophils % 0.5 Nucleated RBC % (0.0-0.3) % 0.0 Absolute Neutrophils (1.2-6.7) 10^3/uL 6.21 Absolute Lymphocytes (1.2-3.4) 10^3/uL 3.09 Absolute Monocytes (0.1-0.8) 10^3/uL 1.46 H Absolute Eosinophils (0.0-0.7) 10^3/uL 0.14 Absolute Basophils (0.0-0.2) 10^3/uL 0.06 Sodium (136-145) mmol/L 141 Potassium (3.5-5.1) mmol/L 3.9 Chloride (98-107) mmol/L 104 Carbon Dioxide (21.0-32.0) mmol/L 29.0 Anion Gap (3-11) mmol/L 8.0 BUN (7-18) mg/dL 20 H Creatinine (0.70-1.30) mg/dL 1.3 Estimated GFR/1.73 m2 (mL/min/1.73m2) >= 60.00 Glucose (74-106) mg/dL 98 Calcium (8.5-10.1) mg/dL 9.0 Total Bilirubin (0.2-1.0) mg/dL 0.3 AST (15-37) U/L 16 ALT (16-63) U/L 24 Alkaline Phosphatase (46-116) U/L 75 Total Protein (6.4-8.2) g/dL 7.4 Albumin (3.4-5.0) g/dL 4.0 Lipase (73-393) U/L 48 Urine Color (Yellow) Yellow Urine Clarity (Clear) Clear Urine pH (5-8) 6.5 Ur Specific [place] (1.005-1.025) >= 1.030 H Urine Protein (Negative) mg/dL Negative Urine Ketones (Negative) mg/dL Negative Urine Blood (Negative) Negative Urine Nitrite (Negative) Negative Urine Bilirubin (Negative) Negative Urine Urobilinogen (Up TO 0.2) EU/dL 0.2 Ur Leukocyte Esterase (Negative) Negative Urine Glucose (Negative) mg/dL Negative PAWSS Have you Been Recently Intoxicated or Drunk Within the Last 30 days?: Yes Have you Ever Experienced Previous Episodes of Alcohol Withdrawal?: No Have you ever Experienced Withdrawal Seizures?: No Have you ever Experienced Delirium Tremens(DT)s?: No Have you ever undergone Alcohol Rehabilitation Treatment (i.e, inpt ot outpatie nt treatment programs)?: No Have you ever Experienced Blackouts?: No Have you ever Combined Alcohol with other Downers within the last 90 days?: No Have you ever Combined Alcohol with any other Substance of Abuse during the last 90 days?: No Positive Blood Alcohol level on Presentation? [PCS.BAL]: No Evidence of Increased Autonomic Activity (i.e. HR>120, tremor, sweating, agitation, nausea)?: No Result: 1
--- NOTE | 2022-03-13 00:52 | DI.VRAD_ITS ---
PROCEDURE INFORMATION: Exam: CT Abdomen And Pelvis Without Contrast Exam date and time: 03/12/2022 11:48 PM Age: 31 years old Clinical indication: Abdominal pain; Localized; Left lower quadrant (llq); Additional info: Llq pain TECHNIQUE: Imaging protocol: Computed tomography of the abdomen and pelvis without contrast. Radiation optimization: All CT scans at this facility use at least one of these dose optimization techniques: automated exposure control; mA and/or kV adjustment per patient size (includes targeted exams where dose is matched to clinical indication); or iterative reconstruction. COMPARISON: CT ABDOMEN PELVIS WO 11/14/2021 9:50 PM FINDINGS: Lungs: Lung bases are clear. Liver: Liver is not enlarged. Unremarkable unenhanced appearance of the liver. Gallbladder and bile ducts: No significant pericholecystic inflammatory stranding. No calcified stones. No ductal dilation. Pancreas: Unremarkable unhanced appearance of the pancreas. No ductal dilation. Spleen: Unremarkable unenhanced appearance of the spleen. No splenomegaly. Adrenal glands: Normal. No mass. Kidneys and ureters: Unremarkable unenhanced appearance. No hydronephrosis. No renal calcifications. Ureters are normal in course and caliber. Stomach and bowel: Stomach decompressed limiting evaluation for mural thickening, otherwise unremarkable as visualized. Small bowel is normal in course and caliber without focal bowel wall thickening. No bowel obstruction. There is mild sigmoid diverticulosis. There is mild colonic mural thickening of the proximal sigmoid colon with associated pericolonic mesenteric fat stranding, no pericolonic abscess. Otherwise no additional focal area of colonic mural thickening. There is mild to moderate colonic stool burden. Appendix: No evidence of acute appendicitis. Intraperitoneal space: No significant free fluid in the abdomen or pelvis. No free air. Vasculature: No abdominal aortic aneurysm. Lymph nodes: No pathologically enlarged lymph nodes. Urinary bladder: Unremarkable as visualized. Reproductive: Unremarkable as visualized. Bones/joints: Mild to moderate degenerative facet changes asymmetric to the right at L5-S1. Otherwise no significant degenerative changes of the spine. No acute fracture. Soft tissues: No focal abnormality. IMPRESSION: Mild sigmoid diverticulosis with findings consistent with acute, uncomplicated diverticulitis. Correlate for appropriate history/symptoms. Dictated and Authenticated by: Sha Rivera MD. Ordering:YENI Rivas MD
[2022-03-13] MEDS: Amox. 875/Clav. 125, 2 TABS/BTL 1 TAB PO (01:21)
[2022-03-13 01:22] VITALS: BP 121/66; PULSE 61; RESP 16; O2SAT 99
== END 2022-03-13 01:26 | disposition home or self-care (01) ==
PROVIDERS: Emergency Provider Physician Assistant; PCP Physician Assistant
DX: R10.32 Left lower quadrant pain (principal)
CPT/HCPCS: 80053; 83690; 99284; 74176; 81003; 85025; 99283

== ENCOUNTER 2022-06-18 19:54 | Emergency (ER) | payer MEDICAID, SELFPAY ==
[2022-06-18 19:58] VITALS: BP 138/77; PULSE 89; RESP 18; TEMP 37.1; O2SAT 99
--- NOTE | 2022-06-18 20:05 | ED.GENADUL_ITS ---
Discharge Plan Disposition Patient Disposition: HOME Condition: Stable Discharge Details Clinical Impression: Toothache Primary Care Provider: Rudy Laura ED Provider: Jadyn Grider Home Meds and New Rx's Prescriptions: New clindamycin HCl 150 mg capsule 450 mg PO TID 7 Days Qty: 63 0RF Discharge Instructions Instructions: Toothache (ED) Additional Instructions: Please see a dentist. Practice good oral hygiene, Take the antibiotic as directed. Please take Tylenol or Ibuprofen with food every 4-6 hours as needed for pain and swelling. Follow up with primary care provider in 3-5 days. Return to ED sooner if any worsening or concerns. Increase oral fluids. Referrals: Rudy Laura [Primary Care Provider] - [facility] General Mode of arrival: ambulatory . Date/Time Provider Initiated Documentation: 06/18/22 19:55 . Limitations to Documentation: no limitations . Information obtained by: patient and RN notes reviewed . HPI Narrative: 32-year-old male presents to the ER with chief complaint of right lower molar pain last for 5 days. He reports he has been tolerating the pain has not taken any Tylenol or ibuprofen. He is requesting antibiotics. No signs of abscess. Speaking in full sentences. Denies any fever or chills. Related Data Home Medications Medication Instructions Recorded Confirmed clindamycin HCl 150 mg capsule 450 mg PO TID 7 days #63 caps 06/18/22 Previous Rx's Medication Instructions Recorded clindamycin HCl 150 mg capsule 450 mg PO TID 7 days #63 caps 06/18/22 Allergies Allergy/AdvReac Type Severity Reaction Status Date / Time codeine Allergy Unverified 02/05/22 22:05 General Stated Complaint: DentalOral BIANKA: 4 Review of Systems ENT Ears, Nose, Mouth, and Throat: Reports dental pain and Denies sore throat PFS All Active Problems (Updated 06/18/22 @ 20:10 by Jadyn Grider NP) Toothache (Acute) Anterior epistaxis (Acute) Nasal congestion (Acute) recurrent left-sided epistaxis and sinus fullness Pain, dental (Acute) Dental infection (Acute) Medical History ADHD (attention deficit hyperactivity disorder) Anxiety disorder bilateral congenital hernias COVID-19 Depression Nicotine dependence Opioid dependence, continuous in remission Surgical History Repair of inguinal hernia Bilateral Social History Smoking/Tobacco Use Status: Former Tobacco Use Quit Date: 06/18/22 Smoking risk assessment performed?: Yes Alcohol Intake: current Alcohol Intake frequency: 0-2 drinks per day Alcohol type: hard liquor Drug use: Rarely Substance use type: former substance user and marijuana Household members: spouse current occupation: disabled Pets and animals: Yes Pets and animals: cat(s) What is your relationship status?: Panel score (0-1 are the most socially isolated patients): 1 Do you feel safe at home: Yes Do you feel safe in your relationship?: Yes Exam [facility] Teeth image: 1. Swollen gingiva surrounding the tooth, poor dentition dental caries noted Throat: posterior oropharynx normal, tonsils normal and uvula midline Course Vital Signs Vital signs: Vital Signs Temperature 37.1 C 06/18/22 19:58 Pulse 89 06/18/22 19:58 Respiratory Rate 18 06/18/22 19:58 Blood Pressure 138/77 06/18/22 19:58 Pulse Oximetry 99 06/18/22 19:58 Temperature 37.1 C 06/18/22 19:58 Temperature Source Temporal Artery Scan 06/18/22 19:58 Pulse 89 06/18/22 19:58 Respiratory Rate 18 06/18/22 19:58 Blood Pressure 138/77 06/18/22 19:58 Blood Pressure Position Sitting 06/18/22 19:58 Pulse Oximetry 99 06/18/22 19:58 Oxygen Delivery Method Room Air 06/18/22 19:58 Oxygen Flow Rate 0 06/18/22 19:58 Pain Level 4 06/18/22 19:58
[2022-06-18] MEDS: Clindamycin 150 MG CAP 450 MG PO (20:10)
[2022-06-18] MEDS: Clindamycin 150 MG CAP, 12 CAPS/BTL 450 MG PO (20:10)
== END 2022-06-18 20:20 | disposition home or self-care (01) ==
PROVIDERS: Emergency Provider Registered Nurse Emergency; PCP Physician Assistant
DX: K02.9 Dental caries, unspecified (principal); Z86.16 Personal history of COVID-19; Z87.891 Personal history of nicotine dependence
CPT/HCPCS: 99283

== ENCOUNTER 2022-06-29 12:16 | Emergency (ER) | payer MEDICAID, SELFPAY ==
[2022-06-29 12:26] VITALS: BP 125/71; PULSE 75; RESP 16; TEMP 36.9; O2SAT 98
--- NOTE | 2022-06-29 15:03 | ED.GENADUL_ITS ---
Discharge Plan Disposition Patient Disposition: HOME Condition: Good Discharge Details Clinical Impression: Dental infection Primary Care Provider: Rudy Laura ED Provider: Renan Ch Home Meds and New Rx's Prescriptions: New penicillin V potassium 500 mg tablet 500 mg PO QID 10 Days Qty: 40 0RF No Action dextroamphetamine-amphetamine [Adderall] 30 mg Tablet 30 mg PO DAILY Discharge Instructions Instructions: Toothache (ED) Additional Instructions: The block we administered should help improve your pain. Please take 800 mg of ibuprofen every 6 hours and 1000 mg of Tylenol every 6 hours to help with the inflammation and pain. These are the maximum doses. Please take the antibiotic as directed to help with the infection in your tooth. Please use the dental list that we have provided to contact the dentist for prompt follow-up and evaluation for tooth removal. If you notice any worsening of your symptoms, or any new symptoms such as difficulty swallowing, difficulty breathing, vomiting, diarrhea, fever, chills, shortness of breath, chest pain, numbness, weakness, or fainting , please return immediately to the emergency department for reevaluation. Please follow up with your primary care provider as soon as possible for reassessment and reevaluation. As always, it was a pleasure participating in your medical care today. Referrals: Rudy Laura [Primary Care Provider] - Discharge Data Discharge Date/Time-TO BE ENTERED AT DEPARTURE: 06/29/22 15:10 Medical Decision Making 32-year-old male presents for right lower jaw pain. Patient has a history of dental caries, and recently just finished a prescription of clindamycin for his teeth. He denies fever or chills. Denies difficulty swallowing or drinking. No other complaints at this time. Exam demonstrates no evidence of Ludewig's angina, airway compromise or periapical abscess. Dental block was performed. Penicillin will be given. No need to restart clindamycin at this time clinically. Recommend NSAIDs at home. Discussed red flags which to return. He has follow-up with dentist already. I have extensively reviewed the treatment plan and discharge instructions with the patient. I have addressed all patient concerns at this time. The patient was made aware of what symptoms to monitor for that would warrant a return to the emergency department. Discussed the plan with the patient, they demonstrate verbal understanding and agreement with our assessment and plan at this time. The documentation in this chart was dictated using [employer] dictation software. Please excuse any dictation errors. HPI General Date/Time Provider Initiated Documentation: 06/29/22 14:27 . HPI Narrative: 32-year-old male presents for right lower jaw pain. Patient has a history of dental caries, and recently just finished a prescription of clindamycin for his teeth. He denies fever or chills. Denies difficulty swallowing or drinking. No other complaints at this time. Related Data Home Medications Medication Instructions Recorded Confirmed dextroamphetamine-amphetamine 30 30 mg PO DAILY 06/29/22 06/29/22 mg tablet (Adderall) penicillin V potassium 500 mg 500 mg PO QID 10 days #40 tabs 06/29/22 tablet Previous Rx's Medication Instructions Recorded penicillin V potassium 500 mg 500 mg PO QID 10 days #40 tabs 06/29/22 tablet Allergies Allergy/AdvReac Type Severity Reaction Status Date / Time codeine Allergy Unverified 06/29/22 12:31 General Stated Complaint: DentalOral BIANKA: 4 Review of Systems All systems reviewed & are unremarkable except as noted in HPI and below PFSH All Active Problems Toothache (Acute) Anterior epistaxis (Acute) Nasal congestion (Acute) recurrent left-sided epistaxis and sinus fullness Pain, dental (Acute) Dental infection (Acute) Medical History ADHD (attention deficit hyperactivity disorder) Anxiety disorder bilateral congenital hernias COVID-19 Depression Nicotine dependence Opioid dependence, continuous in remission Surgical History Repair of inguinal hernia Bilateral Social History Smoking/Tobacco Use Status: Former Tobacco Use Quit Date: 06/18/22 Smoking risk assessment performed?: Yes Alcohol Intake: current Alcohol Intake frequency: a few times a month Alcohol type: hard liquor Drug use: Rarely Substance use type: former substance user and marijuana Household members: spouse current occupation: disabled Pets and animals: Yes Pets and animals: cat(s) What is your relationship status?: Panel score (0-1 are the most socially isolated patients): 1 Do you feel safe at home: Yes Do you feel safe in your relationship?: Yes Exam Narrative Exam Narrative: 1.Const: Well-nourished, Well-developed, appearing stated age 2.Eyes: PERRL, no conjunctival injection, and symmetrical lids. 3.ENT: Atraumatic external nose and ears. Moist MM. Neck: Symmetric, trachea midline, No thyromegaly. Notable dental caries throughout, no periapical abscess 4.CVS: +S1/S2, No murmurs or gallops. Peripheral pulses 2+ and equal in all extremities. Brisk capillary refill in all extremities. 5.RESP: Unlabored respiratory effort. Clear to auscultation bilaterally. No wheezes rales or rhonchi 6.GI: Soft, Nontender/Nondistended, No hepatosplenomegaly. No guarding or rebound. 7.MSK: Normocephalic/Atraumatic, Extremities w/o deformity or ttp No cyanosis or clubbing, Normal movement of all extremities 8.Skin: Warm, Dry. No rashes or lesions. 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 Sensation grossly intact, no focal neurologic deficits. 10.Psych: (AAO) x3. Appropriate mood and affect Course Vital Signs Vital signs: Vital Signs Temperature 36.9 C 06/29/22 12:26 Pulse 75 06/29/22 12:26 Respiratory Rate 16 06/29/22 12:26 Blood Pressure 125/71 06/29/22 12:26 Pulse Oximetry 98 06/29/22 12:26 Temperature 36.9 C 06/29/22 12:26 Temperature Source Temporal Artery Scan 06/29/22 12:26 Pulse 75 06/29/22 12:26 Respiratory Rate 16 06/29/22 12:26 Respiratory Effort Non-Labored 06/29/22 12:29 Blood Pressure 125/71 06/29/22 12:26 Blood Pressure Position Sitting 06/29/22 12:26 Pulse Oximetry 98 06/29/22 12:26 Oxygen Delivery Method Room Air 06/29/22 12:26 Oxygen Flow Rate 0 06/29/22 12:26 Pain Level 5 06/29/22 12:30 Procedures Nerve Block Nerve Block 1: Time out performed: Yes Local Anesthetic: Bupivicaine 0.5% Amount of anesthesia used (mL): 10 Side: right Intraoral Nerve Block: inferior alveolar Procedure Successful: Yes Patient Tolerated Procedure: well and no complications Complications: none
== END 2022-06-29 15:10 | disposition home or self-care (01) ==
PROVIDERS: Emergency Provider Student in an Organized Health Care Education/Training Program; PCP Physician Assistant
DX: K04.7 Periapical abscess without sinus (principal); Z87.891 Personal history of nicotine dependence; Z86.16 Personal history of COVID-19
CPT/HCPCS: 64400; 99283

== ENCOUNTER 2022-09-11 18:18 | Outpatient (REF) | payer MEDICAID, SELFPAY ==
[2022-09-13 10:30] LABS: COVID-19 RT-PCR UVMMC Result Negative (Negative)
== END 2022-09-11 18:19 | disposition home or self-care (01) ==
LOC: LBN 18:18
PROVIDERS: PCP Physician Assistant; Visit Provider Physician Assistant Medical
DX: Z20.822 Contact with and (suspected) exposure to COVID-19 (principal); J34.89 Other specified disorders of nose and nasal sinuses
CPT/HCPCS: U0003

== ENCOUNTER 2022-09-30 19:19 | Emergency (ER) | payer MEDICAID, SELFPAY ==
[2022-09-30 19:28] VITALS: BP 125/78; PULSE 67; RESP 16; TEMP 36.6; O2SAT 100
[2022-09-30 20:39] LABS: Abs Immature Grans 0.04 10^3/uL (0.0-0.06); Absolute Basophil Count 0.05 10^3/uL (0.0-0.2); Absolute Eosinophil Count 0.08 10^3/uL (0.0-0.7); Absolute Monocyte Count 0.96 10^3/uL (0.1-0.8); Absolute Neutrophil Count 6.26 10^3/uL (1.2-6.7); Basophils % 0.5; Eosinophils % 0.8; HCT 49.2 % (40.0-50.0); HGB 16.7 g/dL (13.5-17.5); Immature Grans % 0.4; Lymphocytes % 26.8; MCH 29.4 pg (27.0-33.0); MCHC 33.9 % (32.0-36.0); MCV 87 fL (80-95); MPV 9.9 fL (8.0-11.0); Monocytes % 9.5; Platelet Count 278 10^3/uL (130-400); RBC 5.68 10^6/uL (4.36-5.78); RDW 12.5 % (11.8-14.1); RDW-SD 39.7 fL; WBC 10.09 10^3/uL (4.4-10.8)
[2022-09-30 20:54] LABS: ALT 46 U/L (16-63); AST 21 U/L (15-37); Albumin 4.4 g/dL (3.4-5.0); Alkaline Phosphatase 71 U/L (46-116); Anion Gap 7.9 mmol/L (3-11); BUN 13 mg/dL (7-18); Bilirubin, Total 0.4 mg/dL (0.2-1.0); CO2 28.1 mmol/L (21.0-32.0); CREATININE 1.1 mg/dL (0.70-1.30); Calcium 9.1 mg/dL (8.5-10.1); Chloride 100 mmol/L (98-107); Estimated GFR 92.04 (mL/min/1.73m2); Glucose 98 mg/dL (74-106); Lipase 45 U/L (73-393); Potassium 3.6 mmol/L (3.5-5.1); Sodium 136 mmol/L (136-145); Total Protein 8.2 g/dL (6.4-8.2)
--- NOTE | 2022-10-03 14:41 | ED.GENADUL_ITS ---
Discharge Plan Disposition Patient Disposition: Home Condition: Stable Discharge Details Clinical Impression: Abdominal pain Primary Care Provider: Rudy Laura ED Provider: Evelyn White Home Meds and New Rx's Prescriptions: New amoxicillin-pot clavulanate 875-125 mg tablet 1 tab PO BID Qty: 20 0RF Continued dextroamphetamine-amphetamine [Adderall] 30 mg Tablet 30 mg PO DAILY Discharge Instructions Instructions: Abdominal Pain (ED) Additional Instructions: Take the antibiotic as prescribed Follow-up with your primary care Referral for ultrasound Yogurt daily while on antibiotic return earlier with new or worsening complaints Referrals: Rudy Laura [Primary Care Provider] - 1 day Discharge Data Discharge Date/Time-TO BE ENTERED AT DEPARTURE: 09/30/22 21:56 Medical Decision Making Patient appears well, no leukocytosis and labs are otherwise benign in appearance CT does not show evidence of acute abnormality Patient was given prescription for antibiotics that he was encouraged to take ibuprofen and Tylenol and only initiate antibiotics should he have worsening pain tomorrow I did not order a CAT scan at this time as patient received 1 less than 6 months ago and I think the risk of radiation outweighs benefit at this time He has close outpatient reassessment with his primary care physician and is encouraged to return should he have new or worsening complaints Medical Records Medical records reviewed: Yes I reviewed the patient's medical records. Lab Data Lab results reviewed: Yes I reviewed the patient's lab results. Sign Out No HPI General Date/Time Provider Initiated Documentation: 09/30/22 19:54 . HPI Narrative: This 32-year-old male presents with report of left lower quadrant abdominal pain. States he has an appointment with his primary care physician on Wednesday and is following up with surgery. He is concerned that his symptoms are similar to his prior episode of pain and he was told that he had diverticulitis at that time which resolved with antibiotics. Denies any fever or chills. Denies any chest pain or shortness of breath. Denies any exacerbation with walking or movement. Denies any nausea or vomiting. Related Data Home Medications Medication Instructions Recorded Confirmed dextroamphetamine-amphetamine 30 30 mg PO DAILY 06/29/22 06/29/22 mg tablet (Adderall) amoxicillin 875 mg-potassium 1 tab PO BID #20 tabs 09/30/22 clavulanate 125 mg tablet Previous Rx's Medication Instructions Recorded amoxicillin 875 mg-potassium 1 tab PO BID #20 tabs 09/30/22 clavulanate 125 mg tablet Allergies Allergy/AdvReac Type Severity Reaction Status Date / Time codeine Allergy Unverified 06/29/22 12:31 General Stated Complaint: Abd Prob IBANKA: 3 Review of Systems All systems reviewed & are unremarkable except as noted in HPI and below PFSH All Active Problems (Updated 09/30/22 @ 21:25 by RUIZ Muñoz) Abdominal pain (Acute) Anterior epistaxis (Acute) Nasal congestion (Acute) recurrent left-sided epistaxis and sinus fullness Pain, dental (Acute) Dental infection (Acute) Medical History ADHD (attention deficit hyperactivity disorder) Anxiety disorder bilateral congenital hernias COVID-19 Depression Nicotine dependence Opioid dependence, continuous in remission Surgical History Repair of inguinal hernia Bilateral Social History Smoking/Tobacco Use Status: Former Tobacco Use Quit Date: 06/18/22 Smoking risk assessment performed?: Yes Alcohol Intake: current Alcohol Intake frequency: a few times a month Alcohol type: hard liquor Drug use: Rarely Substance use type: former substance user and marijuana Household members: spouse current occupation: disabled Pets and animals: Yes Pets and animals: cat(s) What is your relationship status?: Panel score (0-1 are the most socially isolated patients): 1 Do you feel safe at home: Yes Do you feel safe in your relationship?: Yes Exam Const General: cooperative, comfortable and no acute distress Orientation: alert and oriented x3 Eyes Pupils: PERRL Resp Effort & Inspection: normal respiratory effort Auscultation: clear to auscultation bilaterally Cardio Rate: regular rate Rhythm: regular rhythm GI Inspection: normal to inspection Other: Mild tenderness right upper quadrant and left lower quadrant Skin General skin exam: no rashes or lesions noted Neuro General: patient alert Course Vital Signs Vital signs: Vital Signs Temperature 36.6 C 09/30/22 19:28 Pulse 67 09/30/22 19:28 Respiratory Rate 16 09/30/22 19:28 Blood Pressure 125/78 09/30/22 19:28 Pulse Oximetry 100 09/30/22 19:28 Temperature 36.6 C 09/30/22 19:28 Temperature Source Temporal Artery Scan 09/30/22 19:28 Pulse 67 09/30/22 19:28 Respiratory Rate 16 09/30/22 19:28 Blood Pressure 125/78 09/30/22 19:28 Blood Pressure Position Sitting 09/30/22 19:28 Pulse Oximetry 100 09/30/22 19:28 Oxygen Delivery Method Room Air 09/30/22 19:28 Oxygen Flow Rate 0 09/30/22 19:28 Pain Level 2 09/30/22 19:28 Lab/Test Results Lab/Test Results: Laboratory Tests Range/Units 09/30/22 09/30/22 09/30/22 20:30 20:30 21:40 WBC (4.4-10.8) 10^3/uL 10.09 RBC (4.36-5.78) 10^6/uL 5.68 Hgb (13.5-17.5) g/dL 16.7 Hct (40.0-50.0) % 49.2 MCV (80-95) fL 87 MCH (27.0-33.0) pg 29.4 MCHC (32.0-36.0) % 33.9 RDW (11.8-14.1) % 12.5 Plt Count (130-400) 10^3/uL 278 MPV (8.0-11.0) fL 9.9 Immature Gran % 0.4 Neutrophils % 62.0 Lymphocytes % 26.8 Monocytes % 9.5 Eosinophils % 0.8 Basophils % 0.5 Nucleated RBC % (0.0-0.3) % 0.0 Absolute Neutrophils (1.2-6.7) 10^3/uL 6.26 Absolute Lymphocytes (1.2-3.4) 10^3/uL 2.70 Absolute Monocytes (0.1-0.8) 10^3/uL 0.96 H Absolute Eosinophils (0.0-0.7) 10^3/uL 0.08 Absolute Basophils (0.0-0.2) 10^3/uL 0.05 Sodium (136-145) mmol/L 136 Potassium (3.5-5.1) mmol/L 3.6 Chloride (98-107) mmol/L 100 Carbon Dioxide (21.0-32.0) mmol/L 28.1 Anion Gap (3-11) mmol/L 7.9 BUN (7-18) mg/dL 13 Creatinine (0.70-1.30) mg/dL 1.1 Est GFR (CKD-EPI 2020) (mL/min/1.73m2) 92.04 Glucose (74-106) mg/dL 98 Calcium (8.5-10.1) mg/dL 9.1 Total Bilirubin (0.2-1.0) mg/dL 0.4 AST (15-37) U/L 21 ALT (16-63) U/L 46 Alkaline Phosphatase (46-116) U/L 71 Total Protein (6.4-8.2) g/dL 8.2 Albumin (3.4-5.0) g/dL 4.4 Lipase (73-393) U/L 45 COVID-19 Source Cancelled SARS-CoV-2 (PCR) Cancelled
== END 2022-09-30 21:56 | disposition home or self-care (01) ==
PROVIDERS: Emergency Provider Physician Assistant; PCP Physician Assistant
DX: R10.32 Left lower quadrant pain (principal)
CPT/HCPCS: 80053; 83690; 87635; 99283; 85025

== ENCOUNTER → 2022-10-01 09:27 | Outpatient (CLI) | payer MEDICAID, SELFPAY ==
--- NOTE | 2022-10-01 | DI.US_ITS ---
Exam(s) US ABDOMEN LIMITED EXAM: US ABDOMEN LIMITED CLINICAL HISTORY: RUQ PAIN TECHNIQUE: Ultrasound examination of the right upper quadrant was performed according to the usual p rotocol. COMPARISON: No exams were available for comparison FINDINGS: The liver is normal in size and shape. Hepatic parenchyma shows normal echotexture. No focal lesion identified. Portal venous flow is hepatopetal. No evidence of cholelithiasis. No biliary dilatation. Unremarkable appearance of the pancreas. Right kidney appears normal with no hydronephrosis or nephrolithiasis. Abdominal aorta and IVC are of normal diameter. IMPRESSION: Normal right upper quadrant ultrasound. RADIATION DOSE DELIVERED: Total DLP
== END ==
PROVIDERS: PCP Physician Assistant; Visit Provider Physician Assistant
DX: R10.11 Right upper quadrant pain (principal)
CPT/HCPCS: 76705

== ENCOUNTER 2022-11-13 09:07 | Day surgery (SDC) | payer MEDICAID, SELFPAY ==
[2022-11-13 09:15] VITALS: BP 131/81; PULSE 78; RESP 16; TEMP 36.3; O2SAT 98
--- NOTE | 2022-11-13 09:26 | W.COLOREPORT ---
Date of service: 11/13/22 Time of Service: 10:43 Colonoscopy Report Procedure Description: Procedures performed: 1. Colonoscopy Preoperative diagnosis: Diverticulitis Postoperative diagnosis: Normal terminal ileum, normal colon, normal rectum Surgeon: Angelo Costa Anesthesia: Sha Indication for procedure: 32 yo man has history of LLQ discomfort and CT scans showing rectosigmoid inflammation, possibly diverticulitis. Family history of colon cancer in paternal grandfather and adenomatous polyps in father. Inguinal hernia+hydrocele surgeries. Findings: No inflammation in the terminal ileum. No inflammation visible in the colon. No diverticuli anywhere. No inflammation in the rectum. I took random cold forceps biopsies from the terminal ileum. I took random cold forceps biopsies along the sigmoid colon all the way to the proximal rectum. Nothing was visibly inflamed and these biopsies will presumably be normal. Surveillance/follow-up recommendations: Persistent symptoms could be related to a left?sided inguinal hernia or chronic musculoskeletal issues in the groin. Any rectosigmoid inflammation would be presumably inflammatory or infectious in nature since it was normal today. I recommend that he performed a screening colonoscopy at the age of 41 because of the family history. If he continues to have episodic symptoms, a sigmoidoscopy may be helpful during an acute episode. Complications: None Blood loss: Minimal Prep: Excellent Procedure in detail: Written consent was obtained from the patient who was in agreement with the risks, benefits and indications of the procedure.? We went to the endoscopy suite and laid the patient in left lateral decubitus position.? Anesthesia was administered which was tolerated well.? A timeout was performed and when we are all in agreement we began the procedure. Digital rectal exam and visual examination was performed and within normal limits.? A well?lubricated colonoscope was advanced without difficulty all the way to the cecum identified by the ileocecal valve, and triangular folds and appendiceal orifice.? Terminal ileum was normal.? It was then slowly withdrawn.?? Retroflexion was performed in the rectum.? The findings/interventions are noted above. The scope was then removed and the patient tolerated the procedure well and was then taken back to the PACU in hemodynamically stable condition.
[2022-11-13] MEDS: Lactated Ringers 1,000 ML 80 ML IV (09:43)
--- NOTE | 2022-11-13 10:07 | W.ANESPRE ---
General Info Date of Service Date Performed: 11/13/22 Height: 5 ft 8 in Weight: 91.8 kg Body Mass Index (BMI): 30.7 Surgical Procedure: Operation Date: 11/13/22 11:20 Proposed Procedure Side Surgeon p Colonoscopy w/Biopsy David Costa MD Meds Allergies and Home Medications Allergies Allergy/AdvReac Type Severity Reaction Status Date / Time codeine Allergy Intermediate Itching Unverified 11/12/22 12:13 Home Medication Medication Instructions Recorded dextroamphetamine-amphetamine 30 30 mg PO DAILY 06/29/22 mg tablet (Adderall) albuterol sulfate 90 mcg/actuation 1 inh inhalation ONCE 10/19/22 aerosol inhaler (ProAir HFA) bisacodyl 5 mg tablet,delayed 5 mg PO ONCE colonscopy bowel prep 10/19/22 release (Dulcolax (bisacodyl)) #4 tabs budesonide-formoterol HFA 160 2 puff inhalation BID 10/19/22 mcg-4.5 mcg/actuation aerosol inhaler (Symbicort) polyethylene glycol 3350 17 238 g PO ONCE colonoscopy prep 10/19/22 gram/dose oral powder #238 grams Current Visit Medications: Current Medications Generic Name Dose Route Start Last Admin Trade Name Freq PRN Reason Stop Dose Admin Ringer's Solution 1,000 mls @ 80 mls/hr 11/13/22 06:00 11/13/22 09:43 IV 11/13/22 23:59 80 mls/hr INFUSION [place] Administration IV Miscellaneous Supplies 1 each 11/13/22 06:00 Iv Access IV 11/13/22 23:59 DIRECTED [place] Sodium Chloride 0 ml 11/13/22 06:00 Normal Saline Flush 10 Ml Syr IV 11/13/22 23:59 PRN PRN Sodium Chloride 0 ml 11/13/22 06:00 Normal Saline 10 Ml Vial IJ 11/13/22 23:59 DIRECTED PRN Sterile Water 0 ml 11/13/22 06:00 Water,Injection,Sterile 10 Ml Vial IJ 11/13/22 23:59 DIRECTED PRN PFSH Active Problems Active Problems: Problem Status Onset Code Diverticulitis K57.92 Anterior epistaxis R04.0 Nasal congestion R09.81 Pain, dental K08.89 Dental infection K04.7 Medical History Medical History ADHD (attention deficit hyperactivity disorder) Anxiety disorder Asthma bilateral congenital hernias COVID-19 Depression Nicotine dependence Opioid dependence, continuous in remission Surgical History Surgical History Repair of inguinal hernia Bilateral Tobacco Smoking/Tobacco Use Status: Former Tobacco Use Alcohol Alcohol Intake: current Alcohol intake frequency: a few times a month Alcohol type: hard liquor Substance Use Substance use: Rarely Substance use type: former substance user and marijuana Vital Signs and Lab Results Vital Signs Most Recent Vital Signs in EMR: Most Recent Vital Signs Temp Pulse Resp BP Pulse Ox 36.3 C L 78 16 131/81 98 11/13/22 09:15 11/13/22 09:15 11/13/22 09:15 11/13/22 09:15 11/13/22 09:15 Lab Results Blood Type / Crossmatch: No Data to Display Complete Blood Count: No Data to Display Complete Metabolic Panel: No Data to Display Liver Function Panel: No Data to Display Coagulation Panel: No Data to Display Cardiac Panel: No Data to Display Arterial Blood Gas: No Data to Display Venous Blood Gas: No Data to Display Pancreas Panel: No Data to Display Thyroid Panel: No Data to Display Infectious Disease: No Data to Display Blood Cultures: No Data to Display Toxicology Panel: No Data to Display Anesthesia Assessment and Plan Anesthesia History Personal History: No History of Anesthesia Complications Family History: No Family History of Anesthesia Complications Exercise Tolerance Exercise Tolerance: Metabolic Equivalents>4 Pertinent Negatives Pertinent Negatives: No Symptoms of GERD, No Major Cardiovascular Symptoms or Complaints and No Major Pulmonary Symptoms or Complaints Cardiac & Pulmonary Exam Cardiac Exam: Normal S1/S2 Heart Sounds Pulmonary Exam: Clear Bilateral Breath Sounds Implantable Cardiac Device Does patient have a Pacemaker or an ICD?: No Airway Exam Known Difficult Airway: No Mallampati Class: 2 Mouth Opening: Normal (> 3cm) Thyromental Distance: Greater than 3 cm Neck Range of Motion: Full ROM Neck Circumference: Normal Teeth Condition: Normal Dentition ASA Classification ASA Score: ASA 2 Emergency Case?: No NPO Status NPO Status: NPO Clears >2 hours, Solids >8 hours Anesthesia Plan Resuscitation Status: Full Code Anesthesia Technique: General Anesthesia Airway Planned: Natural Airway Monitors Used: Standard Monitors
[2022-11-13 10:09] VITALS: BMI 30.7
--- NOTE | 2022-11-13 10:27 | BOWEL_PTH ---
PATIENT: Eric Reid LOC: [facility] U#:[id number] AGE/SX: 32/M ROOM: RE11/13/[address]: David Costa : 1990 BED: DIS: 11/13/2022 SPEC #: [id number] RECD: 11/13/22 11:55 STATUS: LEONEL REQ #: [id number] PARAG: 11/13/22 10:[address]: David Costa DEPT: Surgical Specimen RECD BY: Evelyn Richards ENTERED: 11/13/22 11:56 SP TYPE: Bowel OTHR DR: Rudy Laura Tissues: 1 - BIOPSY BOWEL 2 - BIOPSY BOWEL Procedures: GROSS AND MICRO LEVEL 4 Comments: [id number]
[2022-11-13 10:38] VITALS: BP 97/72; PULSE 68; RESP 17; TEMP 36.5; O2SAT 96
[2022-11-13 10:46] VITALS: BP 107/68; PULSE 64; RESP 18; O2SAT 96
--- NOTE | 2022-11-13 11:24 | W.ANESPOSTOP ---
Postoperative Evaluation Date, Time and Location Date Performed: 11/13/22 Time Performed: 10:50 Patient Location: Day Surgery Unit Vital Signs Most Recent Imported Vital Signs: Most Recent Vital Signs Temp Pulse Resp BP Pulse Ox 36.5 C 64 18 107/68 96 11/13/22 10:38 11/13/22 10:46 11/13/22 10:46 11/13/22 10:46 11/13/22 10:46 Assessment Mental Status: Arousable with meaningful communication Airway and Respiratory Function: Patent airway with normal (patient baseline) respiratory exam Cardiovascular Function: Hemodynamically Stable Hydration Status: Adequately Hydrated Nausea & Vomiting: No Nausea or Vomiting Pain: Pt. Denies Any Pain Peripheral Nerve Block: Patient did not receive a nerve block
== END 2022-11-13 11:05 | disposition home or self-care (01) ==
PROVIDERS: PCP Physician Assistant; Visit Provider Student in an Organized Health Care Education/Training Program
PROC: 0DJD8ZZ Inspection of Lower Intestinal Tract, Via Natural or Artificial Opening Endoscopic (ICD-10-PCS; CPT 45378; principal; 2022-11-13 11:15)
DX: R10.32 Left lower quadrant pain (principal); Z80.0 Family history of malignant neoplasm of digestive organs; Z83.71 Family history of colonic polyps
CPT/HCPCS: 45380; 88305

== ENCOUNTER 2023-03-01 21:49 | Emergency (ER) | payer MEDICAID, SELFPAY ==
[2023-03-01 21:52] VITALS: BP 143/74; PULSE 75; RESP 18; TEMP 36.6; O2SAT 100
--- NOTE | 2023-03-01 22:30 | ED.GENADUL_ITS ---
Discharge Plan Disposition Patient Disposition: Home Discharge Details Clinical Impression: Cellulitis of great toe of right foot Primary Care Provider: Rudy Laura ED Provider: Jadyn Grider Home Meds and New Rx's Prescriptions: New cephalexin 500 mg tablet 500 mg PO BID 10 Days Qty: 20 0RF Rx Instructions: Take 1 tablet by mouth twice daily for the next 10 days No Action albuterol sulfate [ProAir HFA] 90 mcg/actuation HFA aerosol inhaler 1 inh inhalation ONCE budesonide-formoterol [Symbicort] 160-4.5 mcg/actuation HFA aerosol inhaler 2 puff inhalation BID polyethylene glycol 3350 17 gram/dose powder 238 g PO ONCE Qty: 238 0RF Rx Instructions: take per colonoscopy instructions bisacodyl [Dulcolax (bisacodyl)] 5 mg tablet,delayed release (DR/EC) 5 mg PO ONCE Qty: 4 0RF Rx Instructions: take per colonoscopy instructions dextroamphetamine-amphetamine [Adderall] 30 mg Tablet 30 mg PO DAILY Discharge Instructions Instructions: Cellulitis (ED) Additional Instructions: Soak your toe in iodine and water or very soapy water once daily. You may place antibiotic ointment on it once a day for the next few days. Take the antibiotic twice daily with yogurt or probiotic as directed. Please take Tylenol or Ibuprofen with food every 4-6 hours as needed for pain and swelling. Follow up with primary care provider in 3-5 days for wound recheck. Return to ED sooner if any worsening or concerns. Increase oral fluids. Referrals: Rudy Laura [Primary Care Provider] - 3 days Discharge Data Discharge Date/Time-TO BE ENTERED AT DEPARTURE: 03/01/23 22:59 Medical Decision Making Right great toe appears infected. Patient placed on cephalexin. Instructed on soaking the toe daily. Patient given a postop shoe to prevent rubbing. Discussed strict return instructions and follow-up care she verbalized understanding. Patient does not appear systemically ill no fever or chills no red streaks noted. The toe is slightly erythemic and swollen tender to the touch locally. This text was generated using RollCall (roll.to)ation system, please disregard any od dities of phrase or misspellings. HPI General Mode of arrival: ambulatory . Date/Time Provider Initiated Documentation: 03/01/23 22:00 . Limitations to Documentation: no limitations . Information obtained by: patient, RN notes reviewed and old records reviewed . HPI Narrative: 32-year-old male presents to the ER with a chief complaint of right great toe nail infection. Patient reports an ingrown toenail and tried to remove it himself couple days ago he then noticed some purulent drainage after that. He does have erythemic swollen toe increased tenderness. He is able to move it without difficulty. No fever chills or any other associated symptoms. He does have a past medical history of ADHD, asthma, depression and anxiety. Related Data Home Medications Medication Instructions Recorded Confirmed dextroamphetamine-amphetamine 30 30 mg PO DAILY 06/29/22 03/01/23 mg tablet (Adderall) albuterol sulfate 90 mcg/actuation 1 inh inhalation ONCE 10/19/22 03/01/23 aerosol inhaler (ProAir HFA) bisacodyl 5 mg tablet,delayed 5 mg PO ONCE colonscopy bowel prep 10/19/22 11/13/22 release (Dulcolax (bisacodyl)) #4 tabs budesonide-formoterol HFA 160 2 puff inhalation BID 10/19/22 03/01/23 mcg-4.5 mcg/actuation aerosol inhaler (Symbicort) polyethylene glycol 3350 17 238 g PO ONCE colonoscopy prep 10/19/22 11/13/22 gram/dose oral powder #238 grams cephalexin 500 mg tablet 500 mg PO BID 10 days #20 tabs 03/01/23 Previous Rx's Medication Instructions Recorded bisacodyl 5 mg tablet,delayed 5 mg PO ONCE colonscopy bowel prep 10/19/22 release (Dulcolax (bisacodyl)) #4 tabs polyethylene glycol 3350 17 238 g PO ONCE colonoscopy prep 10/19/22 gram/dose oral powder #238 grams cephalexin 500 mg tablet 500 mg PO BID 10 days #20 tabs 03/01/23 Allergies Allergy/AdvReac Type Severity Reaction Status Date / Time codeine Allergy Intermediate Itching Unverified 03/01/23 21:58 General Stated Complaint: RashLesion BIANKA: 4 Review of Systems Integumentary/Breasts Skin/Breast: Reports as per HPI, Reports skin pain and Reports wounds PFSH All Active Problems (Updated 03/01/23 @ 22:48 by Jadyn Grider NP) Cellulitis of great toe of right foot (Acute) Diverticulitis (Chronic) Anterior epistaxis (Acute) Nasal congestion (Acute) recurrent left-sided epistaxis and sinus fullness Pain, dental (Acute) Dental infection (Acute) Medical History ADHD (attention deficit hyperactivity disorder) Anxiety disorder Asthma bilateral congenital hernias COVID-19 Depression Nicotine dependence Opioid dependence, continuous in remission Surgical History Repair of inguinal hernia Bilateral Social History Smoking/Tobacco Use Status: Current-Occasional Tobacco Type: cigarettes Smoking risk assessment performed?: Yes Alcohol Intake: current Alcohol Intake frequency: a few times a month Alcohol type: hard liquor Drug use: Occasionally Substance use type: former substance user and marijuana Household members: spouse current occupation: disabled Pets and animals: Yes Pets and animals: cat(s) What is your relationship status?: Panel score (0-1 are the most socially isolated patients): 1 Do you feel safe at home: Yes Do you feel safe in your relationship?: Yes Exam Extrem Right lower extremity: foot Details: tenderness and ecchymosis great toe Ankle/foot/toe images: 1. Erythema, swelling tenderness drainage noted to the lateral nail fold Course Vital Signs Vital signs: Vital Signs Temperature 36.6 C 03/01/23 21:52 Pulse 75 03/01/23 21:52 Respiratory Rate 18 03/01/23 21:52 Blood Pressure 143/74 H 03/01/23 21:52 Pulse Oximetry 100 03/01/23 21:52 Temperature 36.6 C 03/01/23 21:52 Temperature Source Oral 03/01/23 21:52 Pulse 75 03/01/23 21:52 Respiratory Rate 18 03/01/23 21:52 Respiratory Effort Normal, Non-Labored 03/01/23 21:56 Blood Pressure 143/74 H 03/01/23 21:52 Blood Pressure Position Sitting 03/01/23 21:52 Pulse Oximetry 100 03/01/23 21:52 Oxygen Delivery Method Room Air 03/01/23 21:52 Oxygen Flow Rate 0 03/01/23 21:52 Pain Level 4 03/01/23 21:52 PAWSS Have you Been Recently Intoxicated or Drunk Within the Last 30 days?: Yes Have you Ever Experienced Previous Episodes of Alcohol Withdrawal?: No Have you ever Experienced Withdrawal Seizures?: No Have you ever Experienced Delirium Tremens(DT)s?: No Have you ever undergone Alcohol Rehabilitation Treatment (i.e, inpt ot outpatient treatment programs)?: No Have you ever Experienced Blackouts?: No Have you ever Combined Alcohol with other Downers within the last 90 days?: No Have you ever Combined Alcohol with any other Substance of Abuse during the last 90 days?: No Positive Blood Alcohol level on Presentation? [PCS.BAL]: No Evidence of Increased Autonomic Activity (i.e. HR>120, tremor, sweating, agitation, nausea)?: No Result: 1
[2023-03-01] MEDS: Cephalexin 500 MG CAP, 2 CAPS/BTL PO (22:47)
[2023-03-01] MEDS: Bacitracin 1 PACKET TP (22:47)
[2023-03-01] MEDS: Cephalexin 500 MG CAP PO (22:47)
== END 2023-03-01 22:59 | disposition home or self-care (01) ==
PROVIDERS: Emergency Provider Registered Nurse Emergency; PCP Physician Assistant
DX: L03.031 Cellulitis of right toe (principal)
CPT/HCPCS: 99283

== ENCOUNTER 2023-06-01 03:28 | Emergency (ER) | payer MEDICAID, SELFPAY ==
[2023-06-01 03:35] VITALS: BP 134/85; PULSE 63; RESP 14; TEMP 36.8; O2SAT 98
--- NOTE | 2023-06-01 04:04 | ED.GENADUL_ITS ---
Discharge Plan Disposition Patient Disposition: Home Discharge Details Clinical Impression: Dental infection Primary Care Provider: Rudy Laura ED Provider: Ash Banegas Home Meds and New Rx's Prescriptions: New amoxicillin-pot clavulanate 875-125 mg tablet 1 tab PO BID 10 Days Qty: 20 0RF Continued albuterol sulfate [ProAir HFA] 90 mcg/actuation HFA aerosol inhaler 1 inh inhalation ONCE budesonide-formoterol [Symbicort] 160-4.5 mcg/actuation HFA aerosol inhaler 2 puff inhalation BID dextroamphetamine-amphetamine [Adderall] 30 mg Tablet 30 mg PO DAILY Discontinued polyethylene glycol 3350 17 gram/dose powder 238 g PO ONCE Qty: 238 0RF Patient Comments: pt stated not taking Rx Instructions: take per colonoscopy instructions bisacodyl [Dulcolax (bisacodyl)] 5 mg tablet,delayed release (DR/EC) 5 mg PO ONCE Qty: 4 0RF Patient Comments: pt stated not taking Rx Instructions: take per colonoscopy instructions Discharge Instructions Instructions: Dental Abscess (ED) Additional Instructions: You are seen in the emergency department for dental pain. It looks like you have a fractured left second lower molar. It looks like there may be a small amount of infection around this. We performed a dental block for you to help with your pain. Take 600 mg of ibuprofen every 6 hours for pain. Take at 1000 mg of Tylenol every 6 hours for pain. Do not take more than that dose is recommended above. Take the prescribed antibiotics to help with the infection. Follow-up with your dentist as soon as possible. Return to the emergency department for trouble swallowing, trouble breathing, or any other worsening symptoms. Referrals: Rudy Laura [Primary Care Provider] - 1 week Medical Decision Making 33-year-old male presents with left lower dental pain. Looks to have a fractured left lower second molar that may have some infection with drainage but no obvious abscess formation. Patient agreed to get a nerve block done and performed inferior alveolar nerve block on the left side with good results. We will give some Tylenol and ibuprofen for pain. We will give a course of antibiotics. He says he has a dentist he can follow-up with by calling their office tomorrow. No other signs of soft tissue infections of the neck. Will discharge with return precautions. Medical Records Medical records reviewed: Yes I reviewed the patient's medical records. HPI General Date/Time Provider Initiated Documentation: 06/01/23 03:38 . Limitations to Documentation: no limitations . Information obtained by: patient . HPI Narrative: 33-year-old male presents with left-sided dental pain. Says it started this evening just before going to bed. Around the area of his left lower second molar. Has had dental infections in the past. Has a dentist he can follow-up with. No trouble breathing. No trouble swallowing. No changes in his voice. No neck pain. No fevers or chills. Denies any other symptoms. Related Data Home Medications Medication Instructions Recorded Confirmed dextroamphetamine-amphetamine 30 30 mg PO DAILY 06/29/22 06/01/23 mg tablet (Adderall) albuterol sulfate 90 mcg/actuation 1 inh inhalation ONCE 10/19/22 06/01/23 aerosol inhaler (ProAir HFA) budesonide-formoterol HFA 160 2 puff inhalation BID 10/19/22 06/01/23 mcg-4.5 mcg/actuation aerosol inhaler (Symbicort) amoxicillin 875 mg-potassium 1 tab PO BID 10 days #20 tabs 06/01/23 clavulanate 125 mg tablet Previous Rx's Medication Instructions Recorded amoxicillin 875 mg-potassium 1 tab PO BID 10 days #20 tabs 06/01/23 clavulanate 125 mg tablet Allergies Allergy/AdvReac Type Severity Reaction Status Date / Time codeine Allergy Intermediate Itching Unverified 06/01/23 03:39 General Stated Complaint: DentalOral BIANKA: 4 Review of Systems Constitutional Constitutional: Denies chills, Denies fever(s) and Denies headache(s) Eyes Eyes: Denies change in vision ENT Ears, Nose, Mouth, and Throat: Denies headache(s) and Denies odynophagia Comments: left lower dental pain Cardiovascular Cardiovascular: Denies chest pain and Denies dyspnea Respiratory Respiratory: Denies dyspnea Gastrointestinal Gastrointestinal: Denies abdominal pain, Denies diarrhea, Denies nausea, Denies odynophagia and Denies vomiting Genitourinary Genitourinary: Denies dysuria Musculoskeletal Musculoskeletal: Denies myalgias Integumentary/Breasts Skin/Breast: Denies changing lesions Neurologic Neurologic: Denies behavioral changes and Denies headache(s) Psychiatric Psychiatric: Denies behavioral changes Endocrine Endocrine: Denies heat intolerance Hematologic/Lymphatic Hematologic/Lymphatic: Denies lymphadenopathy PFSH All Active Problems Diverticulitis (Chronic) Anterior epistaxis (Acute) Nasal congestion (Acute) recurrent left-sided epistaxis and sinus fullness Pain, dental (Acute) Dental infection (Acute) Medical History ADHD (attention deficit hyperactivity disorder) Anxiety disorder Asthma bilateral congenital hernias COVID-19 Depression Nicotine dependence Opioid dependence, continuous in remission Surgical History Repair of inguinal hernia Bilateral Social History Smoking/Tobacco Use Status: Current-Occasional Tobacco Type: cigarettes Smoking risk assessment performed?: Yes Alcohol Intake: current Alcohol Intake frequency: a few times a month Alcohol type: hard liquor Drug use: Occasionally Substance use type: former substance user and marijuana Household members: spouse current occupation: disabled Pets and animals: Yes Pets and animals: cat(s) What is your relationship status?: Panel score (0-1 are the most socially isolated patients): 1 Do you feel safe at home: Yes Do you feel safe in your relationship?: Yes Exam Const General: cooperative Nutritional Appearance: average body habitus Orientation: alert, awake and oriented x3 HENMT Head: normal to inspection Ears: external ears normal Mouth: moist mucous membranes Other: Very poor dentition. He has a fractured left second lower molar with some s urrounding redness and swelling but no obvious abscess formation. No facial cellulitis. Uvula is midline with no tonsillar enlargement. Full range of motion of the neck without pain. No trismus. Eyes Pupils: PERRL EOM: EOM intact bilaterally and No nystagmus Neck Neck: full ROM and no tracheal deviation Chest Chest: normal inspection of the chest Resp Auscultation: clear to auscultation bilaterally Cardio Rate: regular rate Rhythm: regular rhythm GI Inspection: normal to inspection Palpation: soft, no guarding, not rigid and nontender Back/Spine/Pelvis Back: No no CVA tenderness Thoracic/Lumbar Spine: thoracic and lumbar spine normal to inspection Skin General skin exam: no rashes or lesions noted Neuro General: patient alert, patient awake and patient oriented x3 Cranial Nerves: CN's II-XI intact bilaterally, PERRL and no nystagmus Cognition: normal cognition Motor: muscle tone normal throughout and strength 5/5 throughout Sensory Exam: no sensory deficits noted Extrem General: normal to inspection Course Vital Signs Vital signs: Vital Signs Temperature 36.8 C 06/01/23 03:35 Pulse 63 06/01/23 03:35 Respiratory Rate 14 06/01/23 03:35 Blood Pressure 134/85 06/01/23 03:35 Pulse Oximetry 98 06/01/23 03:35 Temperature 36.8 C 06/01/23 03:35 Temperature Source Temporal Artery Scan 06/01/23 03:35 Pulse 63 06/01/23 03:35 Respiratory Rate 14 06/01/23 03:35 Respiratory Effort Normal, Non-Labored 06/01/23 03:40 Blood Pressure 134/85 06/01/23 03:35 Blood Pressure Position Sitting 06/01/23 03:35 Pulse Oximetry 98 06/01/23 03:35 Oxygen Delivery Method Room Air 06/01/23 03:35 Oxygen Flow Rate 0 06/01/23 03:35 Pain Level 6 06/01/23 03:35 Procedures Nerve Block Nerve Block 1: Local Anesthetic: Lidocaine 2% Amount of anesthesia used (mL): 8 Side: left Intraoral Nerve Block: inferior alveolar Procedure Successful: Yes Patient Tolerated Procedure: well and no complications Complications: none
[2023-06-01] MEDS: Acetaminophen 500 MG TAB 1000 MG PO (04:13)
[2023-06-01] MEDS: Amoxicillin 875/Clav. 125 TAB PO (04:14)
[2023-06-01] MEDS: Ibuprofen 600 MG TAB PO (04:14)
== END 2023-06-01 04:20 | disposition home or self-care (01) ==
PROVIDERS: Emergency Provider Student in an Organized Health Care Education/Training Program; PCP Physician Assistant
DX: S02.5XXA Fracture of tooth (traumatic), initial encounter for closed fracture (principal); K04.7 Periapical abscess without sinus; X58.XXXA Exposure to other specified factors, initial encounter
CPT/HCPCS: 64400; 99283; 99282

== ENCOUNTER 2023-07-03 04:08 | Emergency (ER) | payer MEDICAID, SELFPAY ==
[2023-07-03 04:12] VITALS: BP 127/80; PULSE 79; RESP 18; TEMP 36.5; O2SAT 98
--- NOTE | 2023-07-03 04:28 | ED.GENADUL_ITS ---
Discharge Plan Disposition Patient Disposition: Home Condition: Improving Discharge Details Clinical Impression: Dental infection, Dental abscess Primary Care Provider: Rudy Laura ED Provider: Andrea Leal Home Meds and New Rx's Prescriptions: New clindamycin HCl 150 mg capsule 150 mg PO TID Qty: 20 0RF Continued albuterol sulfate [ProAir HFA] 90 mcg/actuation HFA aerosol inhaler 1 inh inhalation ONCE budesonide-formoterol [Symbicort] 160-4.5 mcg/actuation HFA aerosol inhaler 2 puff inhalation BID dextroamphetamine-amphetamine [Adderall] 30 mg Tablet 30 mg PO DAILY Discharge Instructions Instructions: Dental Abscess (ED) Discharge Data Discharge Physician: Andrea Leal Medical Decision Making Patient with a dental abscess in the left lower molar with tooth decay who received tramadol and clindamycin and will follow with his dentist HPI General Date/Time Provider Initiated Documentation: 07/03/23 04:11 . HPI Narrative: Patient presents to the emergency department complaining of dental pain in the left lower molar area. That started yesterday. States the pain is about an 8/10 pain Related Data Home Medications Medication Instructions Recorded Confirmed dextroamphetamine-amphetamine 30 30 mg PO DAILY 06/29/22 06/01/23 mg tablet (Adderall) albuterol sulfate 90 mcg/actuation 1 inh inhalation ONCE 10/19/22 06/01/23 aerosol inhaler (ProAir HFA) budesonide-formoterol HFA 160 2 puff inhalation BID 10/19/22 06/01/23 mcg-4.5 mcg/actuation aerosol inhaler (Symbicort) clindamycin HCl 150 mg capsule 150 mg PO TID #20 caps 07/03/23 Previous Rx's Medication Instructions Recorded clindamycin HCl 150 mg capsule 150 mg PO TID #20 caps 07/03/23 Allergies Allergy/AdvReac Type Severity Reaction Status Date / Time codeine Allergy Intermediate Itching Unverified 06/01/23 03:39 General Stated Complaint: DentalOral BIANKA: 5 Review of Systems Narrative: Review of Systems: Constitutional: No fevers, chills, sweats Eye: No recent visual problems ENT: No ear pain, nasal congestion, sore throat Respiratory: No shortness of breath, cough Cardiovascular: No Chest pain, palpitations, syncope Gastrointestinal: No nausea, vomiting, diarrhea Genitourinary: No hematuria Brett/Lymph: Negative for bruising tendency, swollen lymph glands Endocrine: Negative for excessive thirst, excessive hunger Musculoskeletal: No back pain, neck pain, joint pain, muscle pain, decreased range of motion Integumentary: No rash, pruritus, abrasions Neurologic: Alert & oriented X 4 Psychiatric: No anxiety, depression PFSH All Active Problems (Updated 07/03/23 @ 04:33 by Andrea Leal MD) Dental abscess (Acute) Diverticulitis (Chronic) Anterior epistaxis (Acute) Nasal congestion (Acute) recurrent left-sided epistaxis and sinus fullness Pain, dental (Acute) Dental infection (Acute) Medical History ADHD (attention deficit hyperactivity disorder) Anxiety disorder Asthma bilateral congenital hernias COVID-19 Depression Nicotine dependence Opioid dependence, continuous in remission Surgical History Repair of inguinal hernia Bilateral Social History Smoking/Tobacco Use Status: Current-Occasional Tobacco Type: cigarettes Smoking risk assessment performed?: Yes Alcohol Intake: current Alcohol Intake frequency: a few times a month Alcohol type: hard liquor Drug use: Occasionally Substance use type: former substance user and marijuana Household members: spouse current occupation: disabled Pets and animals: Yes Pets and animals: cat(s) What is your relationship status?: Panel score (0-1 are the most socially isolated patients): 1 Do you feel safe at home: Yes Do you feel safe in your relationship?: Yes Exam Narrative Exam Narrative: Exam; vitals signs as reported above normal Constitutional; In no acute distress, afebrile General: cooperative, healthy appearing, comfortable and no acute distress HEENT: Tooth decay to the left third inferior molar with gingival swelling Head: normal to inspection, no palpable skull fracture and normocephalic atraumatic Eyes: : appearance normal, both eyes and all related structures EOM intact bilaterally Pupils: PERRL : conjunctiva normal Direct ophthalmoscopy: normal light reflex, normal conjunctiva, normal visual acuity Ears: Normal TM, normal external canal Neck no JVD, supple non tender Neck: normal visual inspection, full ROM and no lymphadenopathy Chest: normal inspection of the chest Respiratory : normal respiratory effort and able to speak in complete sentences no wheezing no rales Cardio Rate: regular rate, rhythm: regular rhythm normal heart sounds S1 and S2 no murmurs, gallops, or rubs GI : normal to inspection, normal bowel sounds, soft, non tender, non distended, no organomegaly Back/Spine/ no CVA tenderness Thoracic/Lumbar Spine: no tenderness or deformities Skin no rashes or lesions Neuro: patient alert and no meningeal signs, Cranial Nerves: CN's II-XI intact bilaterally, Cognition: normal cognition, Speech: speech normal, Gait: normal gait, Depp tendon reflexes normal 2+ muscle strength 5/5 bilaterally Extremities, no edema, full range of motion, normal strength : normal Rectal: defered Course Vital Signs Vital signs: Vital Signs Temperature 36.5 C 07/03/23 04:12 Pulse 79 07/03/23 04:12 Respiratory Rate 18 07/03/23 04:12 Blood Pressure 127/80 07/03/23 04:12 Pulse Oximetry 98 07/03/23 04:12 Temperature 36.5 C 07/03/23 04:12 Temperature Source Temporal Artery Scan 07/03/23 04:12 Pulse 79 07/03/23 04:12 Respiratory Rate 18 07/03/23 04:12 Blood Pressure 127/80 07/03/23 04:12 Pulse Oximetry 98 07/03/23 04:12 Oxygen Delivery Method Room Air 07/03/23 04:12 Oxygen Flow Rate 0 07/03/23 04:12
[2023-07-03] MEDS: traMADol 50 MG TAB PO (04:45)
[2023-07-03] MEDS: Clindamycin 150 MG CAP PO (04:45)
== END 2023-07-03 04:45 | disposition home or self-care (01) ==
PROVIDERS: Emergency Provider Emergency Medicine Emergency Medical Services; PCP Physician Assistant
DX: K04.7 Periapical abscess without sinus (principal); F17.210 Nicotine dependence, cigarettes, uncomplicated
CPT/HCPCS: 99284; 99283

== ENCOUNTER 2023-08-09 12:10 | Emergency (ER) | payer MEDICAID, SELFPAY ==
--- NOTE | 2023-08-09 12:15 | DI.CT_ITS ---
Exam(s) CT RENAL COLIC WO EXAM: CT RENAL COLIC WO CLINICAL HISTORY: RLQ pain, eval for stone v appy. TECHNIQUE: Imaging Protocol: Axial computed tomography images with coronal and sagittal reformatted images were created and reviewed. CONTRAST MATERIAL: Noncontrast COMPARISON: CT CT ABDOMEN PELVIS WO from 03/12/2022 FINDINGS: ABDOMEN: Lung Bases: Normal where visualized. Liver: Normal attenuation. No measurable mass. Gallbladder and biliary tract: No radiodense calculus or dilation. Pancreas: Normal density, no calcifications or inflammatory process. Spleen: Normal. Kidneys: Normal size, contour and axis. 3 millimeter stone just above the right ureterovesical juncti on causing mild right hydronephrosis. No masses seen. Adrenal glands: No masses seen. Abdominal Aorta: Abdominal portion non-dilated. Soft tissues: Unremarkable. PELVIS: Bladder: Nearly empty. No evidence of stones.No visible mass. Bowel: No obstruction or bowel wall thickening. Reproductive: Unremarkable. Peritoneal cavity: No ascites, collection or mesenteric inflammatory response. Bones: Unremarkable for age.. IMPRESSION: Mild right hydro nephrosis secondary to a 3 millimeter stone just above the ureterovesical junction. No additional calculi. RADIATION DOSE DELIVERED: Total DLP DATA REPOSITORY: All CT scans at this facility are submitted to the National Radiology Data Registry (NRDR) Dose Index Registry (DIR) with the [employer] (ACR). RADIATION OPTIMIZATION: All CT scans at this facility use at least one of these dose optimization te chniques: automated exposure control; mA and/or kV adjustment per patient size (includes targeted exa ms where dose is matched to clinical indication); or iterative reconstruction.
[2023-08-09 12:16] VITALS: BP 149/80; PULSE 75; RESP 16; TEMP 37.1; O2SAT 98
--- NOTE | 2023-08-09 12:28 | ED.GENADUL_ITS ---
Discharge Plan Discharge Details Chief Complaint: FlankPain Primary Care Provider: Rudy Laura ED Provider: Shannan Ruelas Home Meds and New Rx's Prescriptions: No Action albuterol sulfate [ProAir HFA] 90 mcg/actuation HFA aerosol inhaler 1 inh inhalation ONCE budesonide-formoterol [Symbicort] 160-4.5 mcg/actuation HFA aerosol inhaler 2 puff inhalation BID dextroamphetamine-amphetamine [Adderall] 30 mg Tablet 30 mg PO DAILY Medical Decision Making Lab Data Lab results narrative: Urinalysis reviewed and independently interpreted, large blood noted. No evidence of infection. HPI General Date/Time Provider Initiated Documentation: 08/09/23 12:15 . Related Data Home Medications Medication Instructions Recorded Confirmed dextroamphetamine-amphetamine 30 30 mg PO DAILY 06/29/22 08/09/23 mg tablet (Adderall) albuterol sulfate 90 mcg/actuation 1 inh inhalation ONCE 10/19/22 08/09/23 aerosol inhaler (ProAir HFA) budesonide-formoterol HFA 160 2 puff inhalation BID 10/19/22 08/09/23 mcg-4.5 mcg/actuation aerosol inhaler (Symbicort) Allergies Allergy/AdvReac Type Severity Reaction Status Date / Time codeine Allergy Intermediate Itching Unverified 08/09/23 12:18 General Stated Complaint: FlankPain BIANKA: 3 PFSH All Active Problems (Updated 08/03/23 @ 00:06 by FRANKLIN FLORES) Diverticulitis (Chronic) Anterior epistaxis (Acute) Nasal congestion (Acute) recurrent left-sided epistaxis and sinus fullness Pain, dental (Acute) Dental infection (Acute) Medical History ADHD (attention deficit hyperactivity disorder) Anxiety disorder Asthma bilateral congenital hernias COVID-19 Depression Nicotine dependence Opioid dependence, continuous in remission Surgical History Repair of inguinal hernia Bilateral Social History Smoking/Tobacco Use Status: Current-Occasional Tobacco Type: cigarettes Smoking risk assessment performed?: Yes Alcohol Intake: current Alcohol Intake frequency: a few times a month Alcohol type: hard liquor Drug use: Occasionally Substance use type: former substance user and marijuana Household members: spouse current occupation: disabled Pets and animals: Yes Pets and animals: cat(s) What is your relationship status?: Panel score (0-1 are the most socially isolated patients): 1 Do you feel safe at home: Yes Do you feel safe in your relationship?: Yes Course Vital Signs Vital signs: Vital Signs Temperature 37.1 C 08/09/23 12:16 Pulse 75 08/09/23 12:16 Respiratory Rate 16 08/09/23 12:16 Blood Pressure 149/80 H 08/09/23 12:16 Pulse Oximetry 98 08/09/23 12:16 Temperature 37.1 C 08/09/23 12:16 Temperature Source Skin 08/09/23 12:16 Pulse 75 08/09/23 12:16 Respiratory Rate 16 08/09/23 12:16 Blood Pressure 149/80 H 08/09/23 12:16 Blood Pressure Position Sitting 08/09/23 12:16 Pulse Oximetry 98 08/09/23 12:16 Oxygen Delivery Method Room Air 08/09/23 12:16 Oxygen Flow Rate 0 08/09/23 12:16 Pain Level 7 08/09/23 12:16
[2023-08-09 12:34] LABS: Bilirubin Negative (Negative); Blood Large (Negative); Clarity Clear (Clear); Glucose Negative (Negative); Ketones Trace mg/dL (Negative); Leukocyte Esterase Negative (Negative); Nitrite Negative (Negative); Specific Gravity >= 1.030 (1.005-1.025); Urobilinogen 0.2 mg/dL (Up to 0.2)
[2023-08-09 12:52] LABS: Bacteria Few HPF (Negative); Crystals Moderate Amorphous HPF (Negative); Epithelial Cells Rare HPF (Negative); Mucus Moderate (Negative); RBC 0-2 HPF (0-2); WBC Negative HPF (0-5)
[2023-08-09 12:53] LABS: C & S Indicated? No
[2023-08-09 13:22] LABS: Abs Immature Grans 0.04 10^3/uL (0.0-0.06); Absolute Basophil Count 0.05 10^3/uL (0.0-0.2); Absolute Eosinophil Count 0.05 10^3/uL (0.0-0.7); Absolute Lymphocyte Count 1.59 10^3/uL (1.2-3.4); Absolute Monocyte Count 1.02 10^3/uL (0.1-0.8); Absolute Neutrophil Count 7.49 10^3/uL (1.2-6.7); Basophils % 0.5; Eosinophils % 0.5; HCT 49.1 % (40.0-50.0); HGB 16.7 g/dL (13.5-17.5); Immature Grans % 0.4; Lymphocytes % 15.5; MCH 29.7 pg (27.0-33.0); MCV 87 fL (80-95); MPV 10.1 fL (8.0-11.0); Neutrophils % 73.1; Platelet Count 304 10^3/uL (130-400); RBC 5.62 10^6/uL (4.36-5.78); RDW 13.2 % (11.8-14.1); RDW-SD 42.1 fL; WBC 10.24 10^3/uL (4.4-10.8)
[2023-08-09 13:32] LABS: Anion Gap 9.1 mmol/L (3-11); BUN 13 mg/dL (7-18); CO2 28.9 mmol/L (21.0-32.0); CREATININE 1.6 mg/dL (0.70-1.30); Calcium 9.6 mg/dL (8.5-10.1); Chloride 102 mmol/L (98-107); Estimated GFR 58.35 (mL/min/1.73m2); Glucose 111 mg/dL (74-106); Potassium 3.9 mmol/L (3.5-5.1); Sodium 140 mmol/L (136-145)
[2023-08-09] MEDS: Normal Saline 1,000 ML 1000 ML IV (13:33)
[2023-08-09] MEDS: Ketorolac 30 MG/ML VIAL 10 MG IVP (13:34)
[2023-08-09] MEDS: Ondansetron 4 MG/2 ML VIAL IVP (13:34)
--- NOTE | 2023-08-09 14:04 | W.ED.GENAD ---
Discharge Plan Disposition Patient Disposition: Home Discharge Details Clinical Impression: Renal colic on right side Primary Care Provider: Rudy Laura ED Provider: Shannan Ruelas Home Meds and New Rx's Prescriptions: New silodosin [Rapaflo] 4 mg capsule 4 mg PO DAILY Qty: 30 0RF Rx Instructions: must administer with a meal/food ondansetron 4 mg tablet,disintegrating 4 mg PO Q6H PRNQty: 30 0RF Rx Instructions: TAKE EVERY 6 HOURS NEEDED FOR NAUSEA hydrocodone-acetaminophen 5-325 mg tablet 1 tab PO Q6H PRNQty: 12 0RF Rx Instructions: take every 6 hours as needed for pain No Action albuterol sulfate [ProAir HFA] 90 mcg/actuation HFA aerosol inhaler 1 inh inhalation ONCE budesonide-formoterol [Symbicort] 160-4.5 mcg/actuation HFA aerosol inhaler 2 puff inhalation BID dextroamphetamine-amphetamine [Adderall] 30 mg Tablet 30 mg PO DAILY Discharge Instructions Instructions: Renal Colic (ED) Additional Instructions: Please drink lots of water. Take medications as needed. Take [place] for severe pain. Otherwise take ibuprofen, 600 mg every 6 hours. Please follow-up with urology next week for reevaluation of your symptoms and recheck of your renal function. Return to the emergency department if you have severe pain, difficulty urinating or Vomiting Referrals: Daniel Topete MD [ [facility] STAFF PHYSICIAN] - Medical Decision Making Emergent evaluation of right lower quadrant flank pain. Initial differential includes renal colic, acute appendicitis, doubt testicular torsion. Initial plan for pain control, urinalysis, lab work and CT imaging Update: After medications, the patient's pain was well controlled. He is tolerating p.o. and not had any vomiting in the emergency department. Urinalysis concerning for hematuria without signs of infection. Creatinine slightly elevated at 1.6. IV fluids have been given. 1430: CT scan reviewed: Mild right hydro nephrosis secondary to a 3 millimeter stone just above the ureterovesical junction.? No additional calculi. 1445: Patient's pain has been well controlled. He will be prescribed Flomax, nausea medication and pain medication. I will not prescribe Toradol due to his elevated creatinine. I have placed a referral for urology to follow-up. Strict return precautions advised Medical Records Medical records reviewed: Yes I reviewed the patient's medical records. Lab Data Lab results reviewed: Yes I reviewed the patient's lab results. HPI General Date/Time Provider Initiated Documentation: 08/09/23 12:15. Limitations to Documentation: no limitations. Information obtained by: patient. HPI Narrative: 33-year-old gentleman with past medical history of diverticulitis presents for evaluation of right flank pain. Pain started last night. It is constant but intermittent in severity. Pain started in his back and came around to the front. Pain now localized to the right lower quadrant. Associated with some difficulty with urination. He reports that he has some urgency and frequency, no hematuria noted. Denies any fever. Reports nausea without vomiting. Related Data Home Medications Medication Instructions Recorded Confirmed dextroamphetamine-amphetamine 30 30 mg PO DAILY 06/29/22 08/09/23 mg tablet (Adderall) albuterol sulfate 90 mcg/actuation 1 inh inhalation ONCE 10/19/22 08/09/23 aerosol inhaler (ProAir HFA) budesonide-formoterol HFA 160 2 puff inhalation BID 10/19/22 08/09/23 mcg-4.5 mcg/actuation aerosol inhaler (Symbicort) hydrocodone 5 mg-acetaminophen 325 1 tab PO Q6H PRN #12 tabs 08/09/23 mg tablet ondansetron 4 mg disintegrating 4 mg PO Q6H PRN #30 tabs 08/09/23 tablet silodosin 4 mg capsule (Rapaflo) 4 mg PO DAILY #30 caps 08/09/23 Previous Rx's Medication Instructions Recorded hydrocodone 5 mg-acetaminophen 325 1 tab PO Q6H PRN #12 tabs 08/09/23 mg tablet ondansetron 4 mg disintegrating 4 mg PO Q6H PRN #30 tabs 08/09/23 tablet silodosin 4 mg capsule (Rapaflo) 4 mg PO DAILY #30 caps 08/09/23 Allergies Allergy/AdvReac Type Severity Reaction Status Date / Time codeine Allergy Intermediate Itching Unverified 08/09/23 12:18 General Stated Complaint: FlankPain BIANKA: 3 PFSH All Active Problems Renal colic on right side (Acute) Diverticulitis (Chronic) Anterior epistaxis (Acute) Nasal congestion (Acute) recurrent left-sided epistaxis and sinus fullness Pain, dental (Acute) Dental infection (Acute) Medical History ADHD (attention deficit hyperactivity disorder) Anxiety disorder Asthma bilateral congenital hernias COVID-19 Depression Nicotine dependence Opioid dependence, continuous in remission Surgical History Repair of inguinal hernia Bilateral Social History Smoking/Tobacco Use Status: Current-Occasional Tobacco Type: cigarettes Smoking risk assessment performed?: Yes Alcohol Intake: current Alcohol Intake frequency: a few times a month Alcohol type: hard liquor Drug use: Occasionally Substance use type: former substance user and marijuana Household members: spouse current occupation: disabled Pets and animals: Yes Pets and animals: cat(s) What is your relationship status?: Panel score (0-1 are the most socially isolated patients): 1 Do you feel safe at home: Yes Do you feel safe in your relationship?: Yes Exam Narrative Exam Narrative: Review of Systems: All systems reviewed & are unremarkable except as noted in HPI and below Exam: Const: Well-nourished, Well-developed, appearing stated age appears slightly uncomfortable HEENT: NACT / Eyes: PERRL, no conjunctival injection, and symmetrical lids / EARS Atraumatic external nose and ears / MOUTH Moist MM / NECK: Symmetric, trachea midline, No thyromegaly / THROAT oropharynx clear CVS: RRR, No murmurs or gallops. Peripheral pulses 2+ and equal in all extremities. Brisk capillary refill in all extremities. RESP: Unlabored respiratory effort, Clear to auscultation bilaterally. No wheezes rales or rhonchi GI: Soft, + right lower quadrant tenderness+ guarding, no CVAT/Nondistended, No hepatosplenomegaly. No guarding or rebound. MSK: Extremities w/o deformity or TTP, No cyanosis or clubbing, full range of motion Skin: Warm, Dry. No rashes or lesions. Neuro: endless belt finisher II-XII grossly intact. Sensation grossly intact, no focal neurologic deficits. Psych: (AAO) x3. Appropriate mood and affect Course Vital Signs Vital signs: Vital Signs Temperature 37.1 C 08/09/23 12:16 Pulse 75 08/09/23 12:16 Respiratory Rate 16 08/09/23 12:16 Blood Pressure 149/80 H 08/09/23 12:16 Pulse Oximetry 98 08/09/23 12:16 Temperature 37.1 C 08/09/23 12:16 Temperature Source Skin 08/09/23 12:16 Pulse 75 08/09/23 12:16 Respiratory Rate 16 08/09/23 12:16 Respiratory Effort Normal, Non-Labored 08/09/23 13:42 Blood Pressure 149/80 H 08/09/23 12:16 Blood Pressure Position Sitting 08/09/23 12:16 Pulse Oximetry 98 08/09/23 12:16 Oxygen Delivery Method Room Air 08/09/23 12:16 Oxygen Flow Rate 0 08/09/23 12:16 Pain Level 7 08/09/23 12:16 Lab/Test Results Lab/Test Results: Laboratory Tests Range/Units 08/09/23 08/09/23 08/09/23 12:17 13:10 13:10 WBC (4.4-10.8) 10^3/uL 10.24 RBC (4.36-5.78) 10^6/uL 5.62 Hgb (13.5-17.5) g/dL 16.7 Hct (40.0-50.0) % 49.1 MCV (80-95) fL 87 MCH (27.0-33.0) pg 29.7 MCHC (32.0-36.0) % 34.0 RDW (11.8-14.1) % 13.2 Plt Count (130-400) 10^3/uL 304 MPV (8.0-11.0) fL 10.1 Immature Gran % 0.4 Neutrophils % 73.1 Lymphocytes % 15.5 Monocytes % 10.0 Eosinophils % 0.5 Basophils % 0.5 Nucleated RBC % (0.0-0.3) % 0.0 Absolute Neutrophils (1.2-6.7) 10^3/uL 7.49 H Absolute Lymphocytes (1.2-3.4) 10^3/uL 1.59 Absolute Monocytes (0.1-0.8) 10^3/uL 1.02 H Absolute Eosinophils (0.0-0.7) 10^3/uL 0.05 Absolute Basophils (0.0-0.2) 10^3/uL 0.05 Sodium (136-145) mmol/L 140 Potassium (3.5-5.1) mmol/L 3.9 Chloride (98-107) mmol/L 102 Carbon Dioxide (21.0-32.0) mmol/L 28.9 Anion Gap (3-11) mmol/L 9.1 BUN (7-18) mg/dL 13 Creatinine (0.70-1.30) mg/dL 1.6 H Est GFR (CKD-EPI 2020) (mL/min/1.73m2) 58.35 Glucose (74-106) mg/dL 111 H Calcium (8.5-10.1) mg/dL 9.6 Urine Color (Yellow) Yellow Urine Clarity (Clear) Clear Urine pH (5-8) 6.0 Ur Specific [place] (1.005-1.025) >= 1.030 H Urine Protein (Negative) mg/dL 30 H Urine Ketones (Negative) mg/dL Trace H Urine Blood (Negative) Large H Urine Nitrite (Negative) Negative Urine Bilirubin (Negative) Negative Urine Urobilinogen (Up to 0.2) mg/dL 0.2 Ur Leukocyte Esterase (Negative) Negative Urine RBC (0-2) HPF 0-2 Urine WBC (0-5) HPF Negative Ur Epithelial Cells (Negative) HPF Rare Urine Crystals (Negative) HPF Moderate Amorphous Urine Bacteria (Negative) HPF Few Urine Mucus (Negative) Moderate Ur Culture Indicated? No Urine Glucose (Negative) mg/dL Negative
[2023-08-09] MEDS: MORPHine 10 MG/ML VIAL 6 MG IVP (14:07)
--- NOTE | 2023-08-09 14:44 | NUR.NOTE ---
Referral faxed to [facility] Urology for kidney stone and elevated creatine/ in 1 week. Nursing Note:
== END 2023-08-09 14:52 | disposition home or self-care (01) ==
PROVIDERS: Emergency Provider Emergency Medicine; PCP Physician Assistant
DX: N23 Unspecified renal colic (principal)
CPT/HCPCS: 80048; 96361; 96374; 96375; 99284; 74176; 81003; 81015; 85025; J1885; J2270; J2405

== ENCOUNTER 2023-10-29 20:41 | Emergency (ER) | payer MEDICAID, SELFPAY ==
[2023-10-29 20:49] VITALS: BP 130/82; PULSE 95; RESP 16; TEMP 35.5; O2SAT 97
[2023-10-29 20:57] VITALS: BP 140/74; PULSE 99; RESP 23; TEMP 36.8; O2SAT 97
--- NOTE | 2023-10-29 21:10 | ED.GENADUL_ITS ---
Discharge Plan Disposition Patient Disposition: Home Condition: Good Discharge Details Clinical Impression: Acute diarrhea, Abdominal pain Primary Care Provider: Rudy Laura ED Provider: Elli Reid Home Meds and New Rx's Prescriptions: No Action albuterol sulfate [ProAir HFA] 90 mcg/actuation HFA aerosol inhaler 1 inh inhalation ONCE budesonide-formoterol [Symbicort] 160-4.5 mcg/actuation HFA aerosol inhaler 2 puff inhalation BID dextroamphetamine-amphetamine [Adderall] 30 mg Tablet 30 mg PO DAILY escitalopram oxalate 10 mg tablet 10 mg PO DAILY Patient Comments: TAKE ONE TABLET BY MOUTH EVERY DAY Discharge Instructions Instructions: Acute Diarrhea (ED), Abdominal Pain (ED) Additional Instructions: Tylenol and ibuprofen over the counter for pain; follow the directions on the bottle. Call your primary care doctor to schedule an appointment for within the next week to follow up on your visit here. Mention that your creatine (a marker of kidney function) was very slightly elevated; they may want to recheck this at some point. Return to the emergency department for new or worsening symptoms including new/different/worse pain, fever, blood in your bowel movements, testicular pain, or if you have any other concerns. Medical Decision Making 33yo M with hx of asthma, kidney stones, prior concern for diverticulitis with negative colonoscopy, hx bilateral orchipexy, presenting for 3 days of left sided abdominal pain and diarrhea. 2-3 loose stools a day, nonbloody. No fevers, nausea, or vomiting. 3 days ago he did have mild left testicular discomfort which has since resolved, no associated urinary symptoms or penile discharge and no testicular pain currently. Wants G&C testing. Vital signs reassuring on arrival, he does have left mid abdominal tenderness with no peritoneal signs. No testicular tenderness. Low suspicion for testicular pathology/torsion/epididymitits; would not transfer for ultrasound. Not consistent with sepsis. Given tylenol and toradol for pain. Labs reviewed as below, CBC with leukocytosis otherwise reassuring, CMP with mildly elevated Cr at 1.4, no actionable abnormalities, normal lipase, normal lactate . UA with 5-10 WBCs, not otherwise suggestive of infection; would not treat at this time given lack of symptoms, was sent for culture. Urine G&C sent. CT abd/pelvis independently reviewed, no obstruction or free fluid on my view, agree with radiology read below. On reassessment he remains well appearing with reassuring vital signs, no peritoneal signs on exam. Advised symptomatic treatment at home, PCP followup. Discharged home; discharge instructions and return precautions were reviewed with patient who verbalized understanding. All questions were answered and he is in full agreement with the plan. Imaging Data Radiologic Study: Imaging: CT Scan Radiologist's impression: IMPRESSION: 1. No acute findings of the abdomen or pelvis. 2. No gentry colitis or enteritis. No bowel obstruction. Lab Data Lab results reviewed: Yes I reviewed the patient's lab results. Labs: 10/29/23 21:35 Urine - Reflex from Ua Urine Culture - Pending Laboratory Tests Range/Units 10/29/23 10/29/23 21:08 21:35 WBC (4.4-10.8) 10^3/uL 12.89 H RBC (4.36-5.78) 10^6/uL 5.82 H Hgb (13.5-17.5) g/dL 17.2 Hct (40.0-50.0) % 50.8 H MCV (80-95) fL 87 MCH (27.0-33.0) pg 29.6 MCHC (32.0-36.0) % 33.9 RDW (11.8-14.1) % 14.0 Plt Count (130-400) 10^3/uL 305 MPV (8.0-11.0) fL 9.8 Immature Gran % 0.6 Neutrophils % 66.2 Lymphocytes % 22.1 Monocytes % 10.2 Eosinophils % 0.3 Basophils % 0.6 Nucleated RBC % (0.0-0.3) % 0.0 Absolute Neutrophils (1.2-6.7) 10^3/uL 8.53 H Absolute Lymphocytes (1.2-3.4) 10^3/uL 2.85 Absolute Monocytes (0.1-0.8) 10^3/uL 1.31 H Absolute Eosinophils (0.0-0.7) 10^3/uL 0.04 Absolute Basophils (0.0-0.2) 10^3/uL 0.08 VBG Lactate (0.6-1.4) mmol/L 1.4 Sodium (136-145) mmol/L 140 Potassium (3.5-5.1) mmol/L 3.6 Chloride (98-107) mmol/L 101 Carbon Dioxide (21.0-32.0) mmol/L 30.5 Anion Gap (3-11) mmol/L 8.5 BUN (7-18) mg/dL 16 Creatinine (0.70-1.30) mg/dL 1.4 H Est GFR (CKD-EPI 2020) (mL/min/1.73m2) 68.49 Glucose (74-106) mg/dL 97 Calcium (8.5-10.1) mg/dL 9.8 Total Bilirubin (0.2-1.0) mg/dL 0.5 AST (15-37) U/L 29 ALT (16-63) U/L 54 Alkaline Phosphatase (46-116) U/L 83 Total Protein (6.4-8.2) g/dL 8.3 H Albumin (3.4-5.0) g/dL 4.2 Lipase (16-77) U/L 16 Urine Color (Yellow) Yellow Urine Clarity (Clear) Clear Urine pH (5-8) 6.0 Ur Specific [place] (1.005-1.025) >= 1.030 H Urine Protein (Negative) mg/dL Trace H Urine Ketones (Negative) mg/dL Negative Urine Blood (Negative) Negative Urine Nitrite (Negative) Negative Urine Bilirubin (Negative) Negative Urine Urobilinogen (Up to 0.2) mg/dL 0.2 Ur Leukocyte Esterase (Negative) Negative Urine RBC (0-2) HPF Negative Urine WBC (0-5) HPF 5-10 Ur Epithelial Cells (Negative) HPF Negative Urine Crystals (Negative) HPF Negative Urine Bacteria (Negative) HPF Rare Urine Casts (Negative) LPF Negative Urine Mucus (Negative) Moderate Ur Culture Indicated? Yes Urine Glucose (Negative) mg/dL Negative HPI General Mode of arrival: ambulatory . Date/Time Provider Initiated Documentation: 10/29/23 20:51 . Limitations to Documentation: no limitations . Information obtained by: patient . HPI Narrative: 33yo M with hx of asthma, kidney stones, prior concern for diverticulitis with negative colonsocpy, hx bilateral orchipexy, presenting for 3 days of left sided abdominal pain and diarrhea. 2-3 loose stools a day, nonbloody. Pain is dull, constant, and moderate, worse with palpation or movement. No fevers, nausea, or vomiting. 3 days ago he did have mild left testicular discomfort which has since resolved. No dysuria or hematuria. No penile discharge. No testicular pain currently. Is interested in STI testing as he has a new partner; looking for G&C only, does not want HIV or hepatitis testing. He is otherwise in his usual state of health. Related Data Home Medications Medication Instructions Recorded Confirmed dextroamphetamine-amphetamine 30 30 mg PO DAILY 06/29/22 10/29/23 mg tablet (Adderall) albuterol sulfate 90 mcg/actuation 1 inh inhalation ONCE 10/19/22 10/29/23 aerosol inhaler (ProAir HFA) budesonide-formoterol HFA 160 2 puff inhalation BID 10/19/22 10/29/23 mcg-4.5 mcg/actuation aerosol inhaler (Symbicort) escitalopram oxalate 10 mg tablet 10 mg PO DAILY 10/29/23 10/29/23 Allergies Allergy/AdvReac Type Severity Reaction Status Date / Time codeine Allergy Intermediate Itching Unverified 10/29/23 20:51 General Stated Complaint: Abd Prob BIANKA: 3 Review of Systems Narrative: see HPI PFSH All Active Problems (Updated 10/29/23 @ 22:35 by Elli Reid MD) Abdominal pain (Acute) Acute diarrhea (Acute) Diverticulitis (Chronic) Anterior epistaxis (Acute) Nasal congestion (Acute) recurrent left-sided epistaxis and sinus fullness Pain, dental (Acute) Dental infection (Acute) Medical History Asthma COVID-19 Nicotine dependence Anxiety disorder Opioid dependence, continuous in remission bilateral congenital hernias ADHD (attention deficit hyperactivity disorder) Depression Surgical History Repair of inguinal hernia Bilateral Social History Smoking/Tobacco Use Status: Current-Occasional Tobacco Type: e-cigarettes Smoking risk assessment performed?: Yes Alcohol Intake: current Alcohol Intake frequency: a few times a week Alcohol type: hard liquor Drug use: Occasionally Substance use type: former substance user and marijuana Household members: spouse current occupation: disabled Pets and animals: Yes Pets and animals: cat(s) What is your relationship status?: Panel score (0-1 are the most socially isolated patients): 1 Do you feel safe at home: Yes Do you feel safe in your relationship?: Yes Exam Narrative Exam Narrative: General: Alert, well appearing, well nourished, in no acute distress. Head: Normocephalic, atraumatic Neck: Trachea midline, ?Neck supple. Cardiac: ?RRR, no murmurs appreciated Resp: No respiratory distress. CTAB. Abd: ?Soft, non-distended. Left mid-abdominal tendeness to palpation with no rebound or guarding. : ?No suprapubic tenderness. No CVA tenderness. No testicular tenderness. Extremities: ?No deformities.? No peripheral edema. Neurologic: GCS 15. ? Moves all extremities freely against gravity Course Vital Signs Vital signs: Vital Signs Temperature 35.5 C L 10/29/23 20:49 Pulse 95 H 10/29/23 20:49 Respiratory Rate 16 10/29/23 20:49 Blood Pressure 130/82 10/29/23 20:49 Pulse Oximetry 97 10/29/23 20:49 Temperature 36.8 C 10/29/23 20:57 Temperature Source Oral 10/29/23 20:57 Pulse 99 H 10/29/23 20:57 Respiratory Rate 23 10/29/23 20:57 Respiratory Effort Normal 10/29/23 20:52 Blood Pressure 140/74 10/29/23 20:57 Blood Pressure Position Sitting 10/29/23 20:57 Pulse Oximetry 97 10/29/23 20:57 Oxygen Delivery Method Room Air 10/29/23 20:57 Oxygen Flow Rate 0 10/29/23 20:49 Pain Level 7 10/29/23 20:57 PAWSS Have you Been Recently Intoxicated or Drunk Within the Last 30 days?: Yes Have you Ever Experienced Previous Episodes of Alcohol Withdrawal?: No Have you ever Experienced Withdrawal Seizures?: No Have you ever Experienced Delirium Tremens(DT)s?: No Have you ever undergone Alcohol Rehabilitation Treatment (i.e, inpt ot outpatient treatment programs)?: No Have you ever Experienced Blackouts?: Yes Have you ever Combined Alcohol with other Downers within the last 90 days?: Yes Have you ever Combined Alcohol with any other Substance of Abuse during the last 90 days?: Yes Positive Blood Alcohol level on Presentation? [PCS.BAL]: No Evidence of Increased Autonomic Activity (i.e. HR>120, tremor, sweating, agitation, nausea)?: No Result: 4
--- NOTE | 2023-10-29 21:15 | DI.CT_ITS ---
Exam(s) CT ABDOMEN PELVIS W EXAM: CT ABDOMEN PELVIS W CLINICAL HISTORY: left mid abdominal pain, diarrhea. TECHNIQUE: Imaging Protocol: Axial computed tomography images with coronal and sagittal reformatted images were created and reviewed CONTRAST MATERIAL: Intravenous: Omnipaque 350 Contrast volume:100 ml Oral: no COMPARISON: CT CT RENAL COLIC WO from 08/09/2023 FINDINGS: ABDOMEN and PELVIS: Lung Bases: No acute findings. Liver: Mild steatosis.. No measurable mass. Gallbladder and biliary tract: No radiodense calculus or dilation. Pancreas: Normal density. No abnormal calcifications or inflammatory process. No evidence of mass. Spleen: Normal. Kidneys: Normal size, contour and axis. No radiodense stones. No obstructive uropathy. No suspicious masses seen. Adrenal glands: No masses seen. Vasculature: Abdominal aorta non-dilated. Soft tissues: Unremarkable. Bladder: Empty. No calculi. Bowel: No obstruction. No bowel wall thickening. Appendix normal. Mild quantity of stool. Peritoneal cavity: No ascites. No focal collection or mesenteric inflammatory response. Bones: Unremarkable for age. Reproductive organs: Within normal limits. Lymph nodes: Unremarkable. IMPRESSION:: Unremarkable CT scan of the abdomen and pelvis. RADIATION DOSE DELIVERED: Total DLP DATA REPOSITORY: All CT scans at this facility are submitted to the National Radiology Data Registry (NRDR) Dose Index Registry (DIR) with the [employer] (ACR). RADIATION OPTIMIZATION: All CT scans at this facility use at least one of these dose optimization te chniques: automated exposure control; mA and/or kV adjustment per patient size (includes targeted exa ms where dose is matched to clinical indication); or iterative reconstruction.
[2023-10-29 21:28] LABS: Abs Immature Grans 0.08 10^3/uL (0.0-0.06); Absolute Basophil Count 0.08 10^3/uL (0.0-0.2); Absolute Eosinophil Count 0.04 10^3/uL (0.0-0.7); Absolute Lymphocyte Count 2.85 10^3/uL (1.2-3.4); Basophils % 0.6; Eosinophils % 0.3; HCT 50.8 % (40.0-50.0); HGB 17.2 g/dL (13.5-17.5); Immature Grans % 0.6; Lactate 1.4 mmol/L (0.6-1.4); Lymphocytes % 22.1; MCH 29.6 pg (27.0-33.0); MCHC 33.9 % (32.0-36.0); MCV 87 fL (80-95); MPV 9.8 fL (8.0-11.0); Monocytes % 10.2; Neutrophils % 66.2; Platelet Count 305 10^3/uL (130-400); RBC 5.82 10^6/uL (4.36-5.78); RDW-SD 44.7 fL; WBC 12.89 10^3/uL (4.4-10.8)
[2023-10-29] MEDS: Acetaminophen 500 MG TAB 1000 MG PO (21:28)
[2023-10-29] MEDS: Ketorolac 15 MG/ML VIAL IVP (21:28)
[2023-10-29] MEDS: Omnipaque 350 MG/ML 100 ML BTL IJ (21:40)
[2023-10-29 21:41] LABS: Absolute Monocyte Count 1.31 10^3/uL (0.1-0.8); Absolute Neutrophil Count 8.53 10^3/uL (1.2-6.7)
[2023-10-29 21:41] LABS: Bilirubin Negative (Negative); Blood Negative (Negative); Clarity Clear (Clear); Glucose Negative (Negative); Ketones Negative (Negative); Leukocyte Esterase Negative (Negative); Nitrite Negative (Negative); Specific Gravity >= 1.030 (1.005-1.025); Urobilinogen 0.2 mg/dL (Up to 0.2)
[2023-10-29] MEDS: Normal Saline Flush 10 ML SYR IVP (21:41)
[2023-10-29] MEDS: Normal Saline - Diluent 50 ML VIAL IJ (21:41)
[2023-10-29 21:48] LABS: Bacteria Rare HPF (Negative); C & S Indicated? Yes; Casts Negative LPF (Negative); Crystals Negative HPF (Negative); Epithelial Cells Negative HPF (Negative); Mucus Moderate (Negative); RBC Negative HPF (0-2)
[2023-10-29 21:54] LABS: ALT 54 U/L (16-63); AST 29 U/L (15-37); Albumin 4.2 g/dL (3.4-5.0); Alkaline Phosphatase 83 U/L (46-116); Anion Gap 8.5 mmol/L (3-11); BUN 16 mg/dL (7-18); Bilirubin, Total 0.5 mg/dL (0.2-1.0); CO2 30.5 mmol/L (21.0-32.0); CREATININE 1.4 mg/dL (0.70-1.30); Calcium 9.8 mg/dL (8.5-10.1); Chloride 101 mmol/L (98-107); Estimated GFR 68.49 (mL/min/1.73m2); Glucose 97 mg/dL (74-106); Lipase 16 U/L (16-77); Potassium 3.6 mmol/L (3.5-5.1); Sodium 140 mmol/L (136-145); Total Protein 8.3 g/dL (6.4-8.2)
--- NOTE | 2023-10-29 22:28 | DI.VRAD_ITS ---
PROCEDURE INFORMATION: Exam: CT Abdomen And Pelvis With Contrast Exam date and time: 10/29/2023 9:43 PM Age: 33 years old Clinical indication: Other: Diarrhea; Abdominal pain; Additional info: Left mid abdominal pain, diarrhea TECHNIQUE: Imaging protocol: Computed tomography of the abdomen and pelvis with contrast. Contrast material: OMNI 350; Contrast volume: 100 ml; Contrast route: INTRAVENOUS (IV); COMPARISON: CT ABDOMEN PELVIS WO 03/12/2022 11:48 PM FINDINGS: Lungs: Lung bases are clear. Pleural spaces: No pleural effusion. Heart: Normal heart size. No pericardial effusion. No coronary artery atherosclerotic calcium is evident. Liver: Diffuse moderate fatty liver change. Gallbladder and bile ducts: The gallbladder is normal in size and shape. No stones or inflammatory changes. Pancreas: The pancreas is normal in contour and attenuation. Spleen: The spleen is normal in size, contour and attenuation. There is a small splenic dome cyst measuring 8 mm. No change since 03/12/2022. Coronal image 70. Adrenal glands: The adrenal glands are normal in size and contour bilaterally. Kidneys and ureters: The kidneys bilaterally are unremarkable. Normal attenutation. No hydronephrosis. No calculi. Stomach and bowel: Gastric morphology is unremarkable. No edema. No gastric outlet obstruction. Small bowel loops without obstruction or gentry edema. Large bowel loops are unremarkable in course and caliber. No gentry edema. Paucity of formed feces. Scattered diverticulosis without diverticulitis. No paracolic inflammation. Appendix: A non inflamed appendix is identified. Series 4: Image 56. Intraperitoneal space: No free fluid. No free air. Vasculature: Unremarkable. No abdominal aortic aneurysm. Lymph nodes: Unremarkable. No enlarged lymph nodes. Urinary bladder: Urinary bladder is unremarkable in appearance. No wall thickening. No intravesicular calculi. No intravesicular gas. Reproductive: Unremarkable as visualized. Bones/joints: No acute skeletal change. Lumbar spine is unremarkable. Soft tissues: Abdominal wall soft tissues are unremarkable. IMPRESSION: 1. No acute findings of the abdomen or pelvis. 2. No gentry colitis or enteritis. No bowel obstruction. Dictated and Authenticated by: Homer Arellano MD. Ordering:BOBBY Calloway MD
[2023-10-29 22:39] VITALS: BP 137/78; PULSE 79; RESP 17; TEMP 36.9; O2SAT 97
[2023-11-01 13:14] LABS: Chlamydia Result Negative (Negative); GC Result Negative (Negative)
== END 2023-10-29 22:45 | disposition home or self-care (01) ==
PROVIDERS: Emergency Provider Student in an Organized Health Care Education/Training Program; PCP Physician Assistant
DX: R10.32 Left lower quadrant pain (principal); R19.7 Diarrhea, unspecified; Z87.442 Personal history of urinary calculi; Z87.718 Personal history of other specified (corrected) congenital malformations of genitourinary system
CPT/HCPCS: 80053; 83690; 87491; 87591; 96374; 99285; 74177; 81003; 81015; 83605; 85025; 87086; 99283; J1885; J3490

== ENCOUNTER → 2023-12-20 01:53 | Outpatient (CLI) | payer MEDICAID, SELFPAY ==
--- NOTE | 2023-12-20 | DI.US_ITS ---
Exam(s) US SCROTUM EXAM: US SCROTUM CLINICAL HISTORY: LT TESTICULAR PAIN, N50.812,H/O BILAT ORCHIOPEXY AND HYDROCELE. TECHNIQUE: Scrotal ultrasound performed using grayscale, color-flow and spectral Doppler analysis. COMPARISON: No exams were available for comparison FINDINGS: Right testicle: 4.1 x 1.8 x 3.1 cm Echogenicity: Normal. Contour: Smooth. Mass: None seen. Microlithiasis: None. Hydrocele: None. Variocele: None. Hernia: No peristalsing bowel loop identified. Epididymis: Normal. Left testicle: 4.8 x 2 x 2.8 cm Echogenicity: Normal. Contour: Smooth. Mass: None seen. Microlithiasis: None. Hydrocele: None. Variocele: None. Hernia: No peristalsing bowel loop identified. Epididymis: Normal. DOPPLER: Color: Symmetric and uniform, no hyperemia. IMPRESSION: Normal appearing bilateral testicles. DATA REPOSITORY:
== END ==
PROVIDERS: PCP Physician Assistant; Visit Provider Physician Assistant
DX: N50.812 Left testicular pain (principal)
CPT/HCPCS: 76870

== ENCOUNTER 2024-03-09 15:55 | Outpatient (REF) | payer MEDICAID, SELFPAY ==
[2024-03-10 13:21] LABS: Chlamydia Result Negative (Negative); GC Result Negative (Negative)
== END 2024-03-09 15:56 | disposition home or self-care (01) ==
LOC: NCHCN 15:55
PROVIDERS: PCP Physician Assistant; Visit Provider Physician Assistant
DX: Z11.59 Encounter for screening for other viral diseases (principal)
CPT/HCPCS: 87491; 87591

== ENCOUNTER 2025-01-24 22:01 | Emergency (ER) | payer MEDICAID, SELFPAY ==
[2025-01-24 22:06] VITALS: BP 163/86; PULSE 96; RESP 18; TEMP 36.2; O2SAT 98
--- NOTE | 2025-01-24 22:18 | ED.GENADUL_ITS ---
Discharge Plan Disposition Patient Disposition: Home Condition: Good Discharge Details Clinical Impression: Abscess, dental Primary Care Provider: Rudy Laura ED Provider: Elli Reid Home Meds and New Rx's Prescriptions: New amoxicillin-pot clavulanate 875-125 mg tablet 1 tab PO BID Qty: 13 0RF Continued albuterol sulfate [ProAir HFA] 90 mcg/actuation HFA aerosol inhaler 1 inh inhalation ONCE budesonide-formoterol [Symbicort] 160-4.5 mcg/actuation HFA aerosol inhaler 2 puff inhalation BID dextroamphetamine-amphetamine [Adderall] 30 mg Tablet 30 mg PO DAILY escitalopram oxalate 10 mg tablet 10 mg PO DAILY Patient Comments: TAKE ONE TABLET BY MOUTH EVERY DAY omeprazole 40 mg capsule,delayed release(DR/EC) 40 mg PO DAILY PRN Patient Comments: TAKE ONE CAPSULE BY MOUTH EVERY DAY clindamycin phosphate 1 % lotion 1 applic TOPICAL BID PRN Patient Comments: APPLY A THIN LAYER TO THE AFFECTED AREAS TOPICALLY TWO TIMES A DAY Discharge Instructions Instructions: Tooth Abscess ED Additional Instructions: Antibiotic twice a day for the next 7 days. Tylenol and ibuprofen over the counter for pain; follow the directions on the bottle. Call your dentist in the morning to schedule an appointment to be seen within the following 48 hours to followup on your visit here. Call your primary care doctor in the morning to schedule an appointment to followup on your visit here. At that visit please discuss your blood pressure which is high here in the ED. Return to the emergency department for new or worsening symptoms including fever, swelling in your face or neck, difficulty swallowing, or if you have any other concerns. HPI General Mode of arrival: ambulatory . Date/Time Provider Initiated Documentation: 01/24/25 22:04 . Limitations to Documentation: no limitations . Information obtained by: patient . HPI Narrative: 34yo previously healthy M presenting after feeling something 'pop' in his mouth and tasting blood. No trauma to the area. Has had two days of left lower back tooth pressure and discomfort. No fevers, neck pain, facial swelling. Otherwise in his usual state of health with no fevers, chills, rash, nausea, vomiting, or other concerns. Related Data Home Medications ?Medication ?Instructions ?Recorded ?Confirmed dextroamphetamine-amphetamine 30 30 mg PO DAILY 06/29/22 01/24/25 mg tablet (Adderall) albuterol sulfate 90 mcg/actuation 1 inh inhalation ONCE 10/19/22 01/24/25 aerosol inhaler (ProAir HFA) budesonide-formoterol HFA 160 2 puff inhalation BID 10/19/22 01/24/25 mcg-4.5 mcg/actuation aerosol inhaler (Symbicort) escitalopram oxalate 10 mg tablet 10 mg PO DAILY 10/29/23 01/24/25 amoxicillin 875 mg-potassium 1 tab PO BID #13 tabs 01/24/25 clavulanate 125 mg tablet clindamycin phosphate 1 % lotion 1 applic topical BID PRN 01/24/25 01/24/25 omeprazole 40 mg capsule,delayed 40 mg PO DAILY PRN 01/24/25 01/24/25 release Previous Rx's ?Medication ?Instructions ?Recorded amoxicillin 875 mg-potassium 1 tab PO BID #13 tabs 01/24/25 clavulanate 125 mg tablet Allergies Allergy/AdvReac Type Severity Reaction Status Date / Time codeine Allergy Intermediate Itching Unverified 01/24/25 22:12 General Stated Complaint: DentalOral BIANKA: 4 Review of Systems Narrative: see HPI Exam Narrative Exam Narrative: General: Alert, well appearing, well nourished, in no acute distress. Head: Normocephalic, atraumatic. No facial swelling. Neck: Trachea midline, ?Neck supple. Anterior neck nontender. ENT: ?MMM.? Poor denition. Lesion on facial surface near base of #18 consistent with draining periapical abscess Cardiac: ?No cyanosis. Resp: No respiratory distress. Speaking in full sentences. Abd: ?Soft, non-distended, nontender Extremities: ?No deformities.? Neurologic: GCS 15. ? Moves all extremities freely against gravity Course Vital Signs Vital signs: Vital Signs Temperature 36.2 C L 01/24/25 22:06 Pulse 96 H 01/24/25 22:06 Blood Pressure 163/86 H 01/24/25 22:06 Pulse Oximetry 98 01/24/25 22:06 Temperature 36.2 C L 01/24/25 22:06 Temperature Source Temporal Artery Scan 01/24/25 22:06 Pulse 96 H 01/24/25 22:06 Blood Pressure 163/86 H 01/24/25 22:06 Blood Pressure Position Sitting 01/24/25 22:06 Pulse Oximetry 98 01/24/25 22:06 Oxygen Delivery Method Room Air 01/24/25 22:06 Oxygen Flow Rate 0 01/24/25 22:06 Pain Level 0 01/24/25 22:11 Medical Decision Making 34yo previously healthy M presenting after feeling something 'pop' in his mouth and tasting blood. No trauma to the area. Hypertensive on arrival and slightly tachycardiac after ambulating into triage, vital signs otherwise reassuring. Very well appearing. Exam consistent with draining periapical abscess at #18. No suggestion of deep space neck infection, Arnoldo's, Lemmierre's, buccal space infection. Systemically well; not septic. Would not get labs or CT/XR imaging. Will treat with 7 day course of amox-clauv and advise close dental followup (pt has dentist). Discharged home; discharge instructions and return precautions were reviewed with patient who verbalized understanding. All questions were answered and he is in full agreement with the plan. Quality:SDOH Health Related Social Needs: No Data to Display PFSH All Active Problems (Updated 01/24/25 @ 22:18 by Elli Reid MD) Abscess, dental (Acute) Diverticulitis (Chronic) Anterior epistaxis (Acute) Nasal congestion (Acute) recurrent left-sided epistaxis and sinus fullness Pain, dental (Acute) Dental infection (Acute) Medical History Asthma COVID-19 Nicotine dependence Anxiety disorder Opioid dependence, continuous in remission bilateral congenital hernias ADHD (attention deficit hyperactivity disorder) Depression Surgical History Repair of inguinal hernia Bilateral Social History Smoking/Tobacco Use Status: Current-Occasional Tobacco Type: e-cigarettes Smoking risk assessment performed?: Yes Alcohol Intake: current Alcohol Intake frequency: a few times a week Alcohol type: hard liquor Drug use: Occasionally Substance use type: former substance user and marijuana Household members: spouse Housing: apartment current occupation: disabled Pets and animals: Yes Pets and animals: cat(s) What is your relationship status?: Panel score (0-1 are the most socially isolated patients): 1 Do you feel safe at home: Yes Do you feel safe in your relationship?: Yes
[2025-01-24 22:21] VITALS: BP 163/86; PULSE 96; RESP 18; TEMP 36.2; O2SAT 98
[2025-01-24] MEDS: Amoxicillin 875/Clav. 125 TAB PO (22:24)
[2025-01-24 22:27] VITALS: PULSE 89
== END 2025-01-24 22:38 | disposition home or self-care (01) ==
LOC: ER 22:35
PROVIDERS: Emergency Provider Student in an Organized Health Care Education/Training Program; PCP Physician Assistant
DX: K04.7 Periapical abscess without sinus (principal); F17.290 Nicotine dependence, other tobacco product, uncomplicated
CPT/HCPCS: 99283

== ENCOUNTER 2025-02-26 00:36 | Emergency (ER) | payer MEDICAID, SELFPAY ==
[2025-02-26 00:40] VITALS: BP 153/98; PULSE 79; RESP 16; TEMP 36.9; O2SAT 96
--- NOTE | 2025-02-26 00:59 | W.ED.GENAD ---
Discharge Plan Disposition Patient Disposition: Home Condition: Good Discharge Details Clinical Impression: Dental infection Primary Care Provider: Rudy Laura ED Provider: Renan Ch Home Meds and New Rx's Prescriptions: New amoxicillin-pot clavulanate 875-125 mg tablet 1 tab PO BID 7 Days Qty: 14 0RF No Action albuterol sulfate [ProAir HFA] 90 mcg/actuation HFA aerosol inhaler 1 inh inhalation ONCE budesonide-formoterol [Symbicort] 160-4.5 mcg/actuation HFA aerosol inhaler 2 puff inhalation BID dextroamphetamine-amphetamine [Adderall] 30 mg Tablet 30 mg PO DAILY escitalopram oxalate 10 mg tablet 10 mg PO DAILY Patient Comments: TAKE ONE TABLET BY MOUTH EVERY DAY omeprazole 40 mg capsule,delayed release(DR/EC) 40 mg PO DAILY PRN Patient Comments: TAKE ONE CAPSULE BY MOUTH EVERY DAY clindamycin phosphate 1 % lotion 1 applic TOPICAL BID PRN Patient Comments: APPLY A THIN LAYER TO THE AFFECTED AREAS TOPICALLY TWO TIMES A DAY Discharge Instructions Instructions: Dental Pain ED Additional Instructions: Please take 800 mg of ibuprofen every 6 hours and 1000 mg of Tylenol every 6 hours to help with the inflammation and pain. These are the maximum doses. Please take the antibiotic as directed to help with the infection in your tooth. Please use the dental list that we have provided to contact the dentist for prompt follow-up and evaluation for tooth removal. If you notice any worsening of your symptoms, or any new symptoms such as difficulty swallowing, difficulty breathing, vomiting, diarrhea, fever, chills, shortness of breath, chest pain, numbness, weakness, or fainting , please return immediately to the emergency department for reevaluation. Please follow up with your primary care provider as soon as possible for reassessment and reevaluation. As always, it was a pleasure participating in your medical care today. Referrals: Rudy Laura [Primary Care Provider] - [facility] General Date/Time Provider Initiated Documentation: 02/26/25 00:55. [facility] Narrative: This is a pleasant 34-year-old male with past medical history of asthma, previous dental caries, who presents today for evaluation of right lower posterior dental pain. Has been present for the last 3 to 4 days. He denies fever or chills. He has noticed some swelling. He has not been able to contact his dentist yet. He denies any difficulty swallowing or drinking. He has been taking ibuprofen with some mild improvement. No other complaints at this time. Related Data Home Medications ?Medication ?Instructions ?Recorded ?Confirmed dextroamphetamine-amphetamine 30 30 mg PO DAILY 06/29/22 02/26/25 mg tablet (Adderall) albuterol sulfate 90 mcg/actuation 1 inh inhalation ONCE 10/19/22 02/26/25 aerosol inhaler (ProAir HFA) budesonide-formoterol HFA 160 2 puff inhalation BID 10/19/22 02/26/25 mcg-4.5 mcg/actuation aerosol inhaler (Symbicort) escitalopram oxalate 10 mg tablet 10 mg PO DAILY 10/29/23 02/26/25 clindamycin phosphate 1 % lotion 1 applic topical BID PRN 01/24/25 02/26/25 omeprazole 40 mg capsule,delayed 40 mg PO DAILY PRN 01/24/25 02/26/25 release amoxicillin 875 mg-potassium 1 tab PO BID 7 days #14 tabs 02/26/25 clavulanate 125 mg tablet Previous Rx's ?Medication ?Instructions ?Recorded amoxicillin 875 mg-potassium 1 tab PO BID 7 days #14 tabs 02/26/25 clavulanate 125 mg tablet Allergies Allergy/AdvReac Type Severity Reaction Status Date / Time codeine Allergy Intermediate Itching Unverified 02/26/25 00:46 General Stated Complaint: DentalOral BIANKA: 4 Exam Narrative Exam Narrative: 1.Const: Well-nourished, Well-developed, appearing stated age 2.Eyes: PERRL, no conjunctival injection, and symmetrical lids. 3.ENT: Atraumatic external nose and ears. Moist MM. Neck: Symmetric, trachea midline, No thyromegaly. Notable dental caries throughout. Notable disease tooth in the posterior right lower molar. No periapical abscess. No evidence of Ludewig's angina. No evidence of airway compromise. 4.CVS: +S1/S2, Peripheral pulses 2+ and equal in all extremities. Brisk capillary refill in all extremities. 5.RESP: Unlabored respiratory effort. Clear to auscultation bilaterally. No wheezes rales or rhonchi 6.GI: Soft, Nontender/Nondistended, No hepatosplenomegaly. No guarding or rebound. 7.MSK: Normocephalic/Atraumatic, Extremities w/o deformity or ttp No cyanosis or clubbing, Normal movement of all extremities 8.Skin: Warm, Dry. No rashes or lesions. 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 Sensation grossly intact, no focal neurologic deficits. 10.Psych: (AAO) x3. Appropriate mood and affect Course Vital Signs Vital signs: Vital Signs Temperature 36.9 C 02/26/25 00:40 Pulse 79 02/26/25 00:40 Respiratory Rate 16 02/26/25 00:40 Blood Pressure 153/98 H 02/26/25 00:40 Pulse Oximetry 96 02/26/25 00:40 Temperature 36.9 C 02/26/25 00:40 Temperature Source Tympanic 02/26/25 00:40 Pulse 79 02/26/25 00:40 Respiratory Rate 16 02/26/25 00:40 Blood Pressure 153/98 H 02/26/25 00:40 Blood Pressure Position Sitting 02/26/25 00:40 Pulse Oximetry 96 02/26/25 00:40 Oxygen Delivery Method Room Air 02/26/25 00:40 Oxygen Flow Rate 0 02/26/25 00:40 Pain Level 5 02/26/25 00:44 Medical Decision Making This is a pleasant 34-year-old male with past medical history of asthma, previous dental caries, who presents today for evaluation of right lower posterior dental pain. Has been present for the last 3 to 4 days. He denies fever or chills. He has noticed some swelling. He has not been able to contact his dentist yet. He denies any difficulty swallowing or drinking. He has been taking ibuprofen with some mild improvement. No other complaints at this time. Notable dental caries throughout. Notable disease tooth in the posterior right lower molar. No periapical abscess. No evidence of Ludewig's angina. No evidence of airway compromise. Symptoms appear clinically consistent with mild pulpitis and dental infection but no abscess requiring drainage. Will start the patient on Augmentin, will give topical HurriCaine gel. Patient has declined dental block. Recommend continued NSAID therapy. Discussed red flags for which to return. Patient does have a dentist and will be following up with him shortly. I have extensively reviewed the treatment plan and discharge instructions with the patient. I have addressed all patient concerns at this time. The patient was made aware of what symptoms to monitor for that would warrant a return to the emergency department. Discussed the plan with the patient, they demonstrate verbal understanding and agreement with our assessment and plan at this time. The documentation in this chart was dictated using [employer] dictation software. Please excuse any dictation errors. Quality:SDOH Health Related Social Needs: No Data to Display PFSH All Active Problems (Updated 02/26/25 @ 00:59 by Renan Ch, ) Diverticulitis (Chronic) Anterior epistaxis (Acute) Nasal congestion (Acute) recurrent left-sided epistaxis and sinus fullness Pain, dental (Acute) Dental infection (Acute) Medical History Asthma COVID-19 Nicotine dependence Anxiety disorder Opioid dependence, continuous in remission bilateral congenital hernias ADHD (attention deficit hyperactivity disorder) Depression Surgical History Repair of inguinal hernia Bilateral Social History Smoking/Tobacco Use Status: Current-Occasional Tobacco Type: e-cigarettes Smoking risk assessment performed?: Yes Alcohol Intake: current Alcohol Intake frequency: a few times a week Alcohol type: hard liquor Drug use: Occasionally Substance use type: former substance user and marijuana Household members: spouse Housing: apartment current occupation: disabled Pets and animals: Yes Pets and animals: cat(s) What is your relationship status?: Panel score (0-1 are the most socially isolated patients): 1 Do you feel safe at home: Yes Do you feel safe in your relationship?: Yes
[2025-02-26] MEDS: Benzocaine 20% Gel 30 GM JAR MM (01:08)
[2025-02-26] MEDS: Amox. 875/Clav. 125, 2 TABS/BTL 1 TAB PO (01:08)
== END 2025-02-26 01:28 | disposition home or self-care (01) ==
PROVIDERS: Emergency Provider Student in an Organized Health Care Education/Training Program; PCP Physician Assistant
DX: K08.89 Other specified disorders of teeth and supporting structures (principal); K04.7 Periapical abscess without sinus; F17.290 Nicotine dependence, other tobacco product, uncomplicated
CPT/HCPCS: 99283

== ENCOUNTER 2025-07-18 21:57 | Emergency (ER) | payer MEDICAID, SELFPAY ==
[2025-07-18 22:00] VITALS: BP 149/94; PULSE 97; RESP 16; TEMP 36.2; O2SAT 98
--- NOTE | 2025-07-18 22:00 | RT.EKG_ITS ---
APPROVED REPORT Exam: Resting ECG Reason for Exam: electrocution Patient Location: E HR:98 bpm ECG Measurements Heart Rate 98 AXIS UT 149 P 13 QRSd 91 QRS 66 QT 341 T 0 QTc 436 Conclusion Sinus rhythm...normal P axis, V-rate 60- 99 Normal Electrocardiogram
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
== END 2025-07-18 23:17 | disposition home or self-care (01) ==
PROVIDERS: Emergency Provider Emergency Medicine; PCP Physician Assistant
DX: T23.231A Burn of second degree of multiple right fingers (nail), not including thumb, initial encounter (principal); T23.132A Burn of first degree of multiple left fingers (nail), not including thumb, initial encounter; T31.0 Burns involving less than 10% of body surface; W86.1XXA Exposure to industrial wiring, appliances and electrical machinery, initial encounter; Y93.89 Activity, other specified; F17.290 Nicotine dependence, other tobacco product, uncomplicated
CPT/HCPCS: 93005; 99283; 93010